=== PATIENT | female | born 1940 | race Two or more races ===

== ENCOUNTER 2024-05-23 08:23 | Emergency (ER) | payer MEDICARE, SELFPAY ==
--- NOTE | 2024-05-23 08:51 | XR_ITS ---
Examination: Venous duplex lower extremity sonogram, bilateral. Date and time of exam: May 23, 2024 1112 hours INDICATIONS: Leg pain and swelling this week Technique: Multiple sonographic images of the deep venous system have been obtained. B-mode/2-D grayscale imaging of vascular structures and Doppler spectral analysis (waveforms) and color performed Both legs are examined. Findings: Deep venous systems do not demonstrate abnormal echogenicity. All visualized deep veins exhibit compressibility. All visualized deep veins exhibit augmentation. Impression: Negative for deep vein thrombosis
--- NOTE | 2024-05-23 08:51 | XR_ITS ---
Examination: PA chest single view TECHNIQUE: Upright PA chest single view Exam date and time: May 23, 2024 0904 hours INDICATIONS: Shortness of breath today, blood in the stools 5 days FINDINGS: Mild prominence left ventricle Mild vascular congestion No lobar pneumonia or pulmonary edema There appears to be a right shoulder dislocation which may be chronic IMPRESSION: Mild vascular congestion
--- NOTE | 2024-05-23 08:52 | PD.EDRME ---
Rapid Medical Screening Exam RME Arrival date/time: 05/23/24 08:23 83-year-old female with history of kidney issues , hypertension, hypothyroid and currently on blood thinners presents with daughter who reports patient has bilateral lower extremity swelling and blood in her stool Chief Complaint: GI Bleed Time Seen by Provider: 05/23/24 08:38
[2024-05-23 09:35] LABS: Basophils # (Auto) 0.1 Thou/mm3 (0.0-0.2); Basophils % (Auto) 1 % (0-2.5); Eosinophils # (Auto) 1.4 Thou/mm3 (0.0-0.5); Eosinophils % (Auto) 20 % (0-10); Hematocrit 33.7 % (36.0-46.0); Hemoglobin 10.5 g/dL (12.0-16.0); Immature Granulocytes % (Auto) 0 % (0-0); Immature Granulocytes Auto 0.02 Thou/mm3 (0.00-0.00); Lymphocytes # (Auto) 1.7 Thou/mm3 (1.0-4.8); Lymphocytes % (Auto) 24 % (10-50); Mean Corpuscular HGB Conc 31.2 g/dl (31.0-37.0); Mean Corpuscular Volume 96 fL (80-100); Monocytes # (Auto) 0.4 Thou/mm3 (0.0-0.8); Monocytes % (Auto) 5 % (0-12); Neutrophils # (Auto) 3.5 Thou/mm3 (1.8-7.7); Neutrophils % (Auto) 50 % (37-80); Nucleated Red Blood Cell % 0 /100 WBC (0); Platelet Count 168 Thou/mm3 (140-440); White Blood Count 7.1 Thou/mm3 (3.6-11.0)
[2024-05-23 09:54] LABS: INR 1.1 (0.9-1.3)
[2024-05-23 09:57] LABS: Alanine Aminotransferase 18 U/L (10-49); Albumin, Serum 4.1 gm/dL (3.4-4.8); Albumin/Globulin Ratio 1.5 (1.2-2.2); Alkaline Phosphatase 102 U/L (46-116); Anion Gap 11 (7-16); Aspartate Amino Transferase 31 U/L (0-34); B-Type Natriuretic Peptide 1232 pg/mL (0-100); BUN/Creatinine Ratio 16 Ratio (12-20); Blood Urea Nitrogen 30 mg/dL (9-23); Calcium 9.5 mg/dL (8.3-10.6); Calcium (Corrected) 9.5 mg/dL (8.5-10.1); Carbon Dioxide 25.5 mMol/L (20.0-31.0); Chloride 107 mMol/L (98-107); Creatinine (Component) 1.9 mg/dL (0.6-1.3); Globulin 2.8 gm/dL (2.3-3.5); Glucose 84 mg/dL (74-106); Osmolality,Calculated 290 (275-295); Potassium 4.2 mMol/L (3.4-5.1); Sodium 143 mMol/L (136-145); Total Protein 6.9 gm/dL (5.7-8.2); Troponin I 0.037 ng/mL (0.0-0.045); eGFR 26 See Note
[2024-05-23 09:57] LABS: Collection Type, Urine Clean Catch
[2024-05-23 10:06] LABS: Bacteria,Urine Rare; Bilirubin,Urine Negative (Negative); Blood,Urine 1+ (Negative); Clarity,Urine Turbid (Clear/Hazy); Color,Urine Yellow (Lt Yel-Yel); Glucose, Urine Negative (Negative); Ketones,Urine Negative (Negative); Leukocyte Esterase,Urine Positive (Negative); Nitrite,Urine Positive (Negative); Protein,Urine 1+ (Neg - Trace); RBC,Urine 37 /hpf (0-3); Specific Gravity,Urine 1.015 (1.001-1.035); Squamous Epithelial Cell,Urine 3 /hpf (0-5); Urobilinogen,Urine Negative mg/dL (0.0-1.0); WBC,Urine 975 /hpf (0-5)
[2024-05-23 12:39] VITALS: BP 155/84; PULSE 79; RESP 18; TEMP 36.6; O2SAT 99
--- NOTE | 2024-05-23 12:55 | PD.EDADULT ---
ED General RME/HPI General Chief complaint: GI Bleed Stated complaint: BLE SWOLLEN, KIDNEY ISSUES,BL IN STOOL,SENT BY PCP Time Seen by Provider: 05/23/24 08:38 Arrival date/time: 05/23/24 08:23 CC: Blood on stool, swollen lower extremities HPI both going on for the past 2 days. The patient is on apixaban for clots. Daughter states the patient had bright red blood on stool x 2. Lower extremity edema and for the last 3 to 4 days patient denies chest pain or shortness of breath no other complaints at this time. RME / HPI RME / HPI narrative: 05/23/24 08:23 83-year-old female with history of kidney issues , hypertension, hypothyroid and currently on blood thinners presents with daughter who reports patient has bilateral lower extremity swelling and blood in her stool Related Data Home Medications ?Medication ?Instructions ?Recorded ?Confirmed allopurinol 300 mg tablet 300 mg PO QDAY 12/26/22 12/26/22 atenolol 50 mg tablet 50 mg PO BID 12/26/22 12/26/22 clonidine HCl 0.3 mg tablet 0.3 mg PO BID 12/26/22 12/26/22 levothyroxine 100 mcg tablet 100 mcg PO QDAY 12/26/22 12/26/22 simvastatin 40 mg tablet 40 mg PO QPM 12/26/22 12/26/22 Previous Rx's ?Medication ?Instructions ?Recorded apixaban 2.5 mg tablet 2.5 mg PO BID 1 month #60 tabs 12/30/22 metoprolol tartrate 50 mg tablet 50 mg PO Q12H 1 month #60 tabs 12/30/22 cephalexin 500 mg capsule 500 mg PO TID #21 caps 05/21/23 ciprofloxacin HCl 500 mg tablet 500 mg PO BID #14 tabs 05/23/24 (Cipro) furosemide 20 mg tablet (Lasix) 20 mg PO QAM #2 tabs 05/23/24 Allergies Allergy/AdvReac Type Severity Reaction Status Date / Time No Known Allergies Allergy Verified 05/23/24 08:27 Review of Systems Review of Systems Narrative Review of Systems: GEN: No fever, no chills, no weight loss EYES: No discharge, no visual changes, no pain HEENT: No ear pain, no congestion, no sore throat PULM: No shortness of breath, no cough, no congestion CV: No chest pain, no dyspnea on exertion, no palpitations GI: No nausea, no vomiting, no diarrhea, no pain, no constipation : No frequency, no urgency, no dysuria MUSC/SKEL: No joint pain, no back pain,+ lower extremity edema SKIN: No rash PSYCH: No hallucinations, no depression HEME/LYMPH: No easy bleeding or bruising tendencies NEURO: No weakness, no headache Past Medical History Past Medical History NEUROLOGIC: Positive Neurological Disorders CARDIAC: Positive Hypertension; Negative Congestive Heart Failure RESPIRATORY: Negative Chronic Obstructive Pulmonary Disease (COPD) GENITOURINARY: Positive Renal Disease ENDOCRINE: Positive Hypothyroidism; Negative Diabetes Mellitus Type 1 or Diabetes Mellitus Type 2 OTHER HISTORY: Positive Falls; Negative MRSA Social History SMOKING STATUS: Never smoker ED Exam Narrative Physical exam: [General: Stooped in stature not in any acute distress Head normocephalic HEENT: Eyes pupils are PERRLA EOMs are intact pink dry membranes uvula is midline. All other subsystems of HEENT are within acceptable limits Neck is supple nontender Chest equal chest rise nontender to palpation Respiratory: Clear to auscultation no wheezes crackles or rubs CV: Rate rhythm is regular no murmurs rubs or clicks Abdomen is soft nontender no masses positive bowel sounds all 4 quadrants GI: Rectum: Large hemorrhoid at the 4 o'clock position no open lesions induration or fissures, good rectal tone, guaiac is negative. Back: No CVA tenderness no spinous process tenderness from cervical spine thoracic and lumbar spine Skin: Intact no petechiae rash induration ulceration or crepitus Extremities: Moving all extremity against resistance cap refill less than 2 seconds neurosensory intact. 1+ pitting edema to both lower extremities. Neuro: Awake alert oriented x2, person and place, Glascow coma 15 no focal deficits] Course Quality Measures none Orders Category Date Time Status US venous doppler LE BI Stat Exams 05/23/24 08:51 Completed XR chest 1V portable Stat Exams 05/23/24 08:51 Completed B-Type Natriuretic Peptide Stat Lab 05/23/24 08:54 Completed CBC Stat Lab 05/23/24 08:54 Completed Comprehensive Metabolic Panel Stat Lab 05/23/24 08:54 Completed Magnesium Stat Lab 05/23/24 08:54 Completed Partial Thromboplastin Time Stat Lab 05/23/24 08:54 Completed Prothrombin Time with INR Stat Lab 05/23/24 08:54 Completed Troponin I Stat Lab 05/23/24 08:54 Completed Urinalysis Stat Lab 05/23/24 09:40 Completed cefTRIAXone [Rocephin] 1,000 mg Med 05/23/24 12:59 Discontinued Lidocaine 1% 20 ml [Xylocaine 1% 20 ML] 2.1 ml IM X1 Vital Signs Vital signs: Vital Signs Temperature 97.9 F 05/23/24 12:39 Pulse Rate 79 05/23/24 12:39 Respiratory Rate 18 05/23/24 12:39 Blood Pressure 155/84 H 05/23/24 12:39 Pulse Oximetry (%) 99 05/23/24 12:39 [facility] Patient data External records reviewed:: [facility] previous records Clinical information provided by:: patient and family Social determinants that could affect healthcare access:: none Patient has the following chronic illnesses:: DVT hypothyroidism hypertension hyperlipidemia How is presenting disease/condition affected by chronic disease/condition?: uneffected by Evaluation data The following diagnostics were reviewed and interpreted by me:: lab results and radiology exam(s) Lab and/or radiology exams considered but not ordered:: CBC shows no leukocytosis and H&H of 10.5 and 33.7 respectively which is an improvement from March of this year. Platelet count is normal Coags within acceptable limits No significant electrolyte imbalances BUN at 30 and creatinine 1.9 which is unchanged from previous visits Magnesium 2.0, no transaminitis or T. bili elevation Troponin is negative BNP is elevated at 1232. Urine is positive for urinary tract infection with nitrite positive leukocyte Estrace positive with 975 WBCs and rare urine bacteria. Extremities are negative for DVT Chest x-ray is positive for mild vascular congestion as interpreted by me read by radiology. Interpretation Summary: Guaiac is negative I suspect that this is a hemorrhoid of some sort either internal or the into external hemorrhoid noted has now stopped bleeding. Patient's H&H is actually improved even though she is anemic. Lower extremity edema is up somewhat concerned we will give her 2 days of Lasix to be taken each morning and then she is to follow-up promptly with her PCP for cardiac workup. Outpatient GI would also be recommended if the bleeding returns. Please note the patient is on blood thinners for DVT. Medications Medications considered but not ordered:: None Medication administrations:: Medication Administration History Discontinued Medications Ceftriaxone Sodium 1,000 mg/ (Lidocaine HCl 2.1 ml) 0 mg IM X1 ONE Stop: 05/23/24 13:00 Last Admin: 05/23/24 13:32 Dose: 1,000 mg Documented By: LEO None Consultations Consultation(s) initiated? (list below): No Diagnosis Differential Diagnosis ED Complaint MDM: Lower extremity edema, UTI, rectal bleeding Most likely diagnosis given after review of the tests above:: Lower extremity edema, UTI Admission Indicated Admission indicated?: not indicated Explain why admission is indicated or not indicated:: Stable for outpatient follow-up Admission Request Was there a request for admission?: No Disposition Plan Disposition Plan: Discharge Discharge Attestation Discharge Attestation: The patient and all family members were given an opportunity to ask questions and understood the discharge instructions. Discharge instructions specifically effects, indications for sooner follow up or return to the emergency department, and the expected course of current diagnosis. Patient condition: Stable Medical Decision Making Differential Diagnosis Differential Diagnosis: Lower extremity edema, UTI, rectal bleeding Lab Data 05/23/24 08:54 05/23/24 08:54 Labs: Lab Results 05/23/24 05/23/24 Range/Units 08:54 09:40 WBC 7.1 (3.6-11.0) Thou/mm3 RBC 3.50 L (4.00-5.20) Miln/mm3 Hgb 10.5 L (12.0-16.0) g/dL Hct 33.7 L (36.0-46.0) % MCV 96 (80-100) fL MCH 30.0 (25.0-35.0) pg MCHC 31.2 (31.0-37.0) g/dl RDW Std Deviation 59.0 H (36.4-46.3) fL Plt Count 168 (140-440) Thou/mm3 Neut % (Auto) 50 (37-80) % Lymph % (Auto) 24 (10-50) % Sunflower % (Auto) 5 (0-12) % Eos % (Auto) 20 H (0-10) % Baso % (Auto) 1 (0-2.5) % Neut # (Auto) 3.5 (1.8-7.7) Thou/mm3 Lymph # (Auto) 1.7 (1.0-4.8) Thou/mm3 Sunflower # (Auto) 0.4 (0.0-0.8) Thou/mm3 Eos # (Auto) 1.4 H (0.0-0.5) Thou/mm3 Baso # (Auto) 0.1 (0.0-0.2) Thou/mm3 Immature Gran # (Auto) 0.02 H (0.00-0.00) Thou/mm3 Absolute Nucleated RBC 0.00 (0.00-0.00) Thou/mm3 Immature Gran % 0 (0-0) % Nucleated RBC % 0 (0) /100 WBC PT 12.0 (9.0-12.2) Seconds INR 1.1 (0.9-1.3) APTT 31.0 (22.0-36.0) Seconds Sodium 143 (136-145) mMol/L Potassium 4.2 (3.4-5.1) mMol/L Chloride 107 (98-107) mMol/L Carbon Dioxide 25.5 (20.0-31.0) mMol/L Anion Gap 11 (7-16) BUN 30 H (9-23) mg/dL Creatinine 1.9 H (0.6-1.3) mg/dL Estim Creat Clear Calc Not Performed. eGFR 26 L (60 - ) See Note BUN/Creatinine Ratio 16 (12-20) Ratio Glucose 84 (74-106) mg/dL Calculated Osmolality 290 (275-295) Calcium 9.5 (8.3-10.6) mg/dL Corrected Calcium 9.5 (8.5-10.1) mg/dL Magnesium 2.0 (1.6-2.6) mg/dL Total Bilirubin 1.0 (0.3-1.2) mg/dL AST 31 (0-34) U/L ALT 18 (10-49) U/L Alkaline Phosphatase 102 (46-116) U/L Troponin I 0.037 (0.0-0.045) ng/mL B-Natriuretic Peptide 1232 H* (0-100) pg/mL Total Protein 6.9 (5.7-8.2) gm/dL Albumin 4.1 (3.4-4.8) gm/dL Globulin 2.8 (2.3-3.5) gm/dL Albumin/Globulin Ratio 1.5 (1.2-2.2) Ur Collection Type Clean Catch Urine Color Yellow (Lt Yel-Yel) Urine Clarity Turbid A (Clear/Hazy) Urine pH 6.0 (5.0-7.0) Ur Specific [place] 1.015 (1.001-1.035) Urine Protein 1+ A (Neg - Trace) Urine Glucose (UA) Negative (Negative) Urine Ketones Negative (Negative) Urine Blood 1+ A (Negative) Urine Nitrite Positive (Negative) Urine Bilirubin Negative (Negative) Urine Urobilinogen (Auto) Negative (0.0-1.0) mg/dL Ur Leukocyte Esterase Positive (Negative) Urine RBC 37 H (0-3) /hpf Urine WBC 975 H (0-5) /hpf Ur Squamous Epith Cells 3 (0-5) /hpf Urine Bacteria Rare (None) Discharge Plan Plan Patient Disposition: HOME (Self Care) Patient condition on transfer: Stable Prescriptions/Referrals Prescriptions/Med Rec: New furosemide [Lasix] 20 mg tablet 20 mg PO QAM Qty: 2 0RF ciprofloxacin HCl [Cipro] 500 mg tablet 500 mg PO BID Qty: 14 0RF No Action cephalexin 500 mg capsule 500 mg PO TID Qty: 21 0RF clonidine HCl 0.3 mg Tablet 0.3 mg PO BID simvastatin 40 mg Tablet 40 mg PO QPM levothyroxine 100 mcg Tablet 100 mcg PO QDAY allopurinol 300 mg Tablet 300 mg PO QDAY atenolol 50 mg Tablet 50 mg PO BID apixaban 2.5 mg tablet 2.5 mg PO BID 30 Days Qty: 60 3RF metoprolol tartrate 50 mg tablet 50 mg PO Q12H 30 Days Qty: 60 2RF Referrals: Marietta Gutirerez [Primary Care Provider] - In 1 week Problem List Clinical Impression: Rectal bleed, Acute UTI, Bilateral edema of lower extremity, CHF (congestive heart failure) Patient/Caregiver Discharge Instructions Other Activity Instructions:: Keep your legs elevated at nighttime, take the water pill each morning for the next 2 days. Follow-up promptly with your primary care doctor for a cardiac/CHF or congestive heart failure workup. Take the antibiotics for the urinary tract infection. If there is worsening of any of the symptoms including bleeding from the rectum return to the emergency room immediately for further evaluation. Education Materials: Bleeding Gastrointestinal, Coping with Heart Failure, ED Leg Swelling in Both Legs Print Language: Sudanese Stand Alone Forms: [employer] Info., Work/School Release, Patient Portal Info Letter PA/CUFF STITCHER Supervising Physician PA/CUFF STITCHER Supervising Physician: Dedrick Balderas ENP
[2024-05-23] MEDS: cefTRIAXone 1,000 MG, LIDOCAINE 1% 20 ML 2.1 ML IM (13:32)
== END 2024-05-23 13:44 | disposition home or self-care (01) ==
PROVIDERS: Nurse Practitioner Primary Care; Emergency Provider Emergency Medicine; PCP Internal Medicine
DX: R60.0 Localized edema (principal); K92.1 Melena; N39.0 Urinary tract infection, site not specified; I50.9 Heart failure, unspecified; I11.0 Hypertensive heart disease with heart failure; E03.9 Hypothyroidism, unspecified
CPT/HCPCS: 36415; 71045; 80053; 81001; 83735; 83880; 84484; 85025; 85610; 85730; 93970; 96372; 99284; J0696; J3490

== ENCOUNTER 2024-07-12 19:58 | Inpatient (IN) | payer OTHER, MEDICARE, SELFPAY ==
[2024-07-12 19:59] VITALS: BMI 25.7
--- NOTE | 2024-07-12 20:05 | EKG_ITS ---
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: : 1940 Requested By: ED Temporary Provider Order Number: [id number] Reading MD: ED Temporary Provider Measurements Intervals Harper Rate: 150 P: MT: QRS: 114 QRSD: 134 T: -69 QT: 315 QTc: 499 Interpretive Statements ATRIAL FLUTTER/TACHYCARDIA WITH RAPID VENTRICULAR RESPONSE INTRAVENTRICULAR CONDUCTION DELAY [130+ ms QRS DURATION] RIGHT VENTRICULAR HYPERTROPHY [SOME/ALL OF: PROMINENT R IN V1, LATE TRANSITION, RAD, YANG, SSS] CRITICAL TEST RESULT Compared to ECG 05/21/2023 16:51:54 Intraventricular conduction delay now present Atrial abnormality now present Right ventricular hypertrophy now present Sinus bradycardia no longer present Right bundle-branch block no longer present /store/[id number]
[2024-07-12 20:16] VITALS: BP 131/75; PULSE 147; RESP 18; TEMP 36.4; O2SAT 97
--- NOTE | 2024-07-12 20:26 | EDNOTE_ITS ---
ED General RME/HPI General Chief complaint: Arrhythmia/Palpitations Stated complaint: SENT BY DR. MELLO FOR AFIB RVR AT OFFICE Arrival date/time: 07/12/24 19:58 RME / HPI RME / HPI narrative: This patient is a 83-year-old female with past medical history of CKD stage IV , hypertension, hypothyroidism, hyperlipidemia, new onset A-fib/flutter presented to the ED with racing of heart from residential real estate assistant, Dr Mello's office. Patient came with her daughter at the bedside. They reported that they went to their PCP today. They found that patient has rapid heart rate and was referred to residential real estate assistant. Customer Account Coordinator, evaluate the patient and recommended her to be admitted in the hospital for possible cardioversion and CHEVY. Patient is having some mild palpitations however denied any chest pain or breathing difficulty. Patient's daughter reported that patient had some stuffy nose associated with bodyaches with mild nausea a week ago. She was here in May 2024 with bilateral lower extremity swelling. Patient denies any abdominal discomfort, nausea vomiting, dysuria or burning sensation. Vitals showed blood pressure 131/75, pulse 147, respiratory rate 18 and afebrile. Patient was saturating well on room air. EKG showed atrial flutter with RVR heart rate 150s. QTc 401. Labs revealed hemoglobin 12.8, WBC 9.8. Platelet count 220. Coagulation panel showed INR 1.0. Chemistry panel urinalysis showed sodium 140, potassium 4.1. Chloride 100. BUN 50 and creatinine 3.0. GFR 15. Blood glucose 171. Magnesium 2.1. AST 50, ALP 146. Troponin I 0.077. BNP is pending. TSH 3.64 and T4 1.34. Glucosuria WBC 37 and yeast. We ordered diltiazem 15 mg x 1 along with magnesium 2 g x 1. We will be initiating diltiazem drip. Customer Account Coordinator has been consulted. Patient will need to be admitted to the hospital for management of atrial flutter with RVR. Rapid ventricular rate got controlled with diltiazem push. Customer Account Coordinator contacted and recommended that start the patient on diltiazem drip 5 mg/h, continue Eliquis 2.5 mg bid age and renal dosed, keep the patient n.p.o. and recommended to give metoprolol XL 100 and stop for metoprolol tartrate he will likely perform cardioversion tomorrow morning. Admitting team were notified and patient will be admitted. Additionally, patient was found to have MICHAEL on CKD stage IIIb POSSIBLE due to Cardiorenal syndrome vs diuretics , elevated troponin I likely supply/demand ischemia. PMH: CKD stage IIIb, arthritis, DM type II, new onset atrial flutter with RVR PSH: Nonsignificant SH: Denies smoking or drinking alcohol. No history of illicit drug use. Allergies: NKDA Home medications: Allopurinol, simvastatin 40 mg at bedtime, losartan losartan 50 mg once daily, metoprolol tartrate 50 twice daily, levothyroxine, Lasix 40 once daily, Eliquis 2.5 twice daily MD complaint: Atrial flutter with RVR Onset (ago): day(s) (1) Location: chest Associated symptoms: other (Racing of heart) Related Data Home Medications ?Medication ?Instructions ?Recorded ?Confirmed allopurinol 300 mg tablet 300 mg PO QDAY 12/26/2212/07 atenolol 50 mg tablet 50 mg PO BID 12/26/22 clonidine HCl 0.3 mg tablet 0.3 mg PO BID 12/26/22 levothyroxine 100 mcg tablet 100 mcg PO QDAY 12/26/22 12/26/22 simvastatin 40 mg tablet 40 mg PO QPM 12/26/22 Previous Rx's ?Medication ?Instructions ?Recorded apixaban 2.5 mg tablet 2.5 mg PO BID 1 month #60 ta bs 12/30/22 metoprolol tartrate 50 mg tablet 50 mg PO Q12H 1 month #60 tabs 12/30/22 cephalexin 500 mg capsule 500 mg PO TID #21 caps 05/20 ciprofloxacin HCl 500 mg tablet 500 mg PO BID #14 tabs 05/23/24 (Cipro) furosemide 20 mg tablet (Lasix) 20 mg PO QAM #2 tabs 0 05/23/24 Allergies Allergy/AdvReac Type Severity Reaction Status Date / Time No Known Allergies Allergy Verified 07/12/24 19:59 Review of Systems Review of Systems Systems Reviewed: All systems reviewed, normal except as documented Past Medical History Past Medical History NEUROLOGIC: Positive Neurological Disorders CARDIAC: Positive Hypertension; Negative Congestive Heart Failure RESPIRATORY: Negative Chronic Obstructive Pulmonary Disease (COPD) GENITOURINARY: Positive Renal Disease ENDOCRINE: Positive Hypothyroidism; Negative Diabetes Mellitus Type 1 or Diabetes Mellitus Type 2 OTHER HISTORY: Positive Falls; Negative MRSA Social History SMOKING STATUS: Never smoker ED Exam Narrative Physical exam: GENERAL APPEARANCE: AxOx4, elderly female in no acute distress. Saturating well on room air. HEENT: NC, AT. MMM. EOMI, clear conjunctiva, oropharynx clear. NECK: Supple without lymphadenopathy. No stiffness or restricted ROM. HEART: Irregular rate and irregular rhythm, normal S1/S2, no m/r/g LUNGS: CTAB, moving air well. No crackles or wheezes are heard. ABDOMEN: Soft, nontender, nondistended with good bowel sounds heard. BACK: No CVAT, no obvious deformity. EXTREMITIES: Bilateral 1+ pitting edema noticed with chronic venous stasis. NEUROLOGICAL: Grossly nonfocal. Alert and oriented, moving all 4 extremities. CN not formally tested but appear grossly intact. Skin: Chronic venous stasis Psych: Appropriate mood and affect Course Course Course Narrative: This patient is a 83-year-old female with past medical history of CKD stage IV, hypertension, hypothyroidism, hyperlipidemia, new onset A-fib/flutter presented to the ED with racing of heart from residential real estate assistant, Dr Mello's office. EKG showed atrial flutter with RVR.We ordered diltiazem 15 mg x 1 along with magnesium 2 g x 1. We will be initiating diltiazem drip. Customer Account Coordinator has been consulted. Patient will need to be admitted to the hospital for management of atrial flutter with RVR. Rapid ventricular rate got controlled with diltiazem push. Customer Account Coordinator contacted and recommended that start the patient on diltiazem drip 5 mg/h. continue Eliquis 2.5 mg bid age and renal dosed, keep the patient n.p.o. and recommended to give metoprolol XL 100 and stop for metoprolol tartrate he will likely perform cardioversion tomorrow morning. Additionally, patient was found to have MICHAEL on CKD stage IV POSSIBLE due to Cardiorenal syndrome vs diuretics, elevated troponin I likely supply/demand ischemia. Admitting team were notified and patient will be admitted. Quality Measures VTE prophylaxis (eliquis 2.5 ) Orders Category Date Time Status COVID-19 Screening Questionnaire NOW Care 05/07/25 21:17 Active Decision to Admit X1 Care 07/12/24 21:17 Completed EKG (ED ONLY) *Do not use* NOW Care 07/12/24 20:05 Completed Insert IV NOW Care 07/12/24 20:36 Active NPO NOW Care 07/12/24 21:19 Active Consult to Cardiology Stat Cons 07/12/24 20:35 Ordered Diet NPO (NOW) Diet 07/12/24 21:19 Active CXRP [XR chest 1V portable] Stat Exams 07/12/24 21:05 Completed EKG (ED Only) Stat Exams 07/12/24 20:05 Ordered BNP [B-Type Natriuretic Peptide] Stat Lab 07/12/24 20:49 Received CBC Stat Lab 07/12/24 20:49 Completed CMP [Comprehensive Metabolic Panel] Stat Lab 07/12/24 20:49 Completed Free T4 (Free Thyroxine) Stat Lab 07/12/24 20:49 Completed INR [Prothrombin Time with INR] Stat Lab 07/12/24 20:49 Completed Mag [Magnesium] Stat Lab 07/12/24 20:49 Completed PTT [Partial Thromboplastin Time] Stat Lab 07/12/24 20:49 Completed Phosphorous Stat Lab 07/12/24 20:49 Completed TSH [Thyroid Stimulating Hormone] Stat Lab 07/12/24 20:49 Completed Troponin I Stat Lab 07/12/24 20:49 Completed Urinalysis Stat Lab 07/12/24 20:41 Completed Apixaban [Eliquis] Med 07/12/24 21:15 Active 2.5 mg PO BID DILTIAZEM in D5W 125 MG Med 07/12/24 21:13 Discontinued 125 mg in 125 ml IV 5 mg/hr Diltiazem Inj [Cardizem Inj] Med 07/12/24 20:41 Discontinued 15 mg IV X1 ONE Magnesium Sulfate 2 GM Ivpb [Magnesium Sulfate Ivpb] Med 07/12/24 20:46 Discontinued 2 gm in 50 ml IV X1 Vital Signs Vital signs: Vital Signs Temperature 97.5 F 07/12/24 20:16 Pulse Rate 147 H 07/12/24 20:16 Respiratory Rate 18 07/12/24 20:16 Blood Pressure 131/75 H 07/12/24 20:16 Pulse Oximetry (%) 97 07/12/24 20:16 Oxygen Delivery Method Room Air 07/12/24 20:16 Discharge Plan Plan Patient Disposition: Admit Acute Care w/in Hospital Problem List Clinical Impression: Atrial flutter with rapid ventricular response MDM Narrative Sign Out note: This patient is a 83-year-old female with past medical history of CKD stage IV, hypertension, hypothyroidism, hyperlipidemia, new onset A-fib/flutter presented to the ED with racing of heart from residential real estate assistant, Dr Mello's office. EKG showed atrial flutter with RVR.We ordered diltiazem 15 mg x 1 along with magnesium 2 g x 1. We will be initiating diltiazem drip. Customer Account Coordinator has been consulted. Patient will need to be admitted to the hospital for management of atrial flutter with RVR. Rapid ventricular rate got controlled with diltiazem push.Customer Account Coordinator contacted and recommended that start the patient on diltiazem drip 5 mg/h, continue Eliquis 2.5 mg bid age and renal dosed, keep the patient n.p.o. and recommended to give metoprolol XL 100 and stop for metoprolol tartrate he will likely perform cardioversion tomorrow morning. Additionally, patient was found to have MICHAEL on CKD stage IV POSSIBLE due to Cardiorenal syndrome vs diuretics, elevated troponin I likely supply/demand ischemia. Admitting team were notified and patient will be admitted. Medication Administration(s) Medication Administration History Apixaban (Apixaban 2.5 Mg Tablet) 2.5 mg PO BID [facility] Stop: 08/11/24 21:14 Last Admin: 07/12/24 21:46 Dose: 2.5 mg Documented By: EF Furosemide (Furosemide 20 Mg Tablet) 20 mg PO QAM [facility] Stop: 08/12/24 08:59 Levothyroxine Sodium (Levothyroxine Sodium 100 Mcg Tablet) 100 mcg PO ACBR [facility] Stop: 08/12/24 05:59 Discontinued Medications Diltiazem HCl (Diltiazem Inj 5 Mg/Ml Vial 5 Ml) 15 mg IV X1 ONE Stop: 07/12/24 20:42 Last Admin: 07/12/24 20:53 Dose: 15 mg Documented By: EE Magnesium Sulfate (Magnesium Sulfate Ivpb) 2 gm in 50 mls @ 25 mls/hr IV X1 ONE Stop: 07/12/24 22:45 Last Admin: 07/12/24 20:54 Dose: 25 mls/hr Documented By: EE Diltiazem HCl (Diltiazem In D5w 125 Mg) 125 mg in 125 mls @ 5 mls/hr IV .Q24H [facility] Stop: 08/11/24 21:12 Last Admin: 07/12/24 22:25 Dose: Not Given Documented By: EF Non-Admin Reason: Cancelled by Provider Lactated Ringer's (Lactated Ringers) 500 mls @ 999 mls/hr IV .Q31M ONE Stop: 07/12/24 22:11 Last Infusion: 07/12/24 21:48 Dose: 0 mls/hr Documented By: Admin: 07/12/24 21:46 Dose: 999 mls/hr Documented By: EF Metoprolol Succinate (Metoprolol Succinate Xl 25 Mg Tabcr) 50 mg PO X1 ONE Stop: 07/12/24 21:52
[2024-07-12 20:53] VITALS: BP 120/88; PULSE 141
[2024-07-12] MEDS: DILTIAZEM INJ 5 MG/ML VIAL 5 ML 15 MG IV (20:53)
[2024-07-12] MEDS: Magnesium Sulfate 2 GM Ivpb 2 GM/50 ML BAG IV (20:54)
[2024-07-12 20:55] LABS: Collection Type, Urine Clean Catch
[2024-07-12 20:56] LABS: Basophils # (Auto) 0.1 Thou/mm3 (0.0-0.2); Basophils % (Auto) 1 % (0-2.5); Eosinophils # (Auto) 1.3 Thou/mm3 (0.0-0.5); Eosinophils % (Auto) 13 % (0-10); Hematocrit 39.9 % (36.0-46.0); Hemoglobin 12.8 g/dL (12.0-16.0); Immature Granulocytes % (Auto) 0 % (0-0); Immature Granulocytes Auto 0.03 Thou/mm3 (0.00-0.00); Lymphocytes # (Auto) 2.8 Thou/mm3 (1.0-4.8); Lymphocytes % (Auto) 29 % (10-50); Mean Corpuscular HGB Conc 32.1 g/dl (31.0-37.0); Mean Corpuscular Hemoglobin 29.6 pg (25.0-35.0); Mean Corpuscular Volume 92 fL (80-100); Monocytes # (Auto) 0.7 Thou/mm3 (0.0-0.8); Monocytes % (Auto) 7 % (0-12); Neutrophils % (Auto) 51 % (37-80); Nucleated Red Blood Cell % 0 /100 WBC (0); Platelet Count 220 Thou/mm3 (140-440); RDW Standard Deviation 54.1 fL (36.4-46.3); Red Blood Count 4.33 Miln/mm3 (4.00-5.20); White Blood Count 9.8 Thou/mm3 (3.6-11.0)
--- NOTE | 2024-07-12 21:05 | XR_ITS ---
Examination: AP chest single view TECHNIQUE: AP portable semiupright chest single view Time: July 12, [id number] hours Comparison May 23, 2024 INDICATIONS: Tachycardia congestion beginning one week ago. FINDINGS: Mild enlargement cardiac contour Moderate vascular congestion. No pneumonia or boone pulmonary edema Erosive changes involving the left humeral head Impression: Moderate vascular congestion
[2024-07-12 21:06] LABS: Bilirubin,Urine Negative (Negative); Blood,Urine Negative (Negative); Budding Yeast,Urine Present; Clarity,Urine Clear (Clear/Hazy); Color,Urine Yellow (Lt Yel-Yel); Glucose, Urine 3+ (Negative); Hyaline Casts,Urine < 1 /hpf (0-1); Ketones,Urine Negative (Negative); Leukocyte Esterase,Urine Positive (Negative); Nitrite,Urine Negative (Negative); PH,Urine 5.5 (5.0-7.0); Protein,Urine Trace (Neg - Trace); RBC,Urine 3 /hpf (0-3); Specific Gravity,Urine 1.019 (1.001-1.035); Squamous Epithelial Cell,Urine 2 /hpf (0-5); Urobilinogen,Urine Negative mg/dL (0.0-1.0); WBC,Urine 37 /hpf (0-5)
[2024-07-12 21:12] LABS: Partial Thromboplastin Time 29.2 Seconds (22.0-36.0); Prothrombin Time 11.2 Seconds (9.0-12.2)
[2024-07-12 21:27] LABS: Alanine Aminotransferase 40 U/L (10-49); Albumin, Serum 4.5 gm/dL (3.4-4.8); Albumin/Globulin Ratio 1.4 (1.2-2.2); Alkaline Phosphatase 146 U/L (46-116); Anion Gap 11 (7-16); Aspartate Amino Transferase 50 U/L (0-34); BUN/Creatinine Ratio 17 Ratio (12-20); Bilirubin,Total 0.7 mg/dL (0.3-1.2); Blood Urea Nitrogen 50 mg/dL (9-23); Calcium 9.2 mg/dL (8.3-10.6); Calcium (Corrected) 9.2 mg/dL (8.5-10.1); Carbon Dioxide 29.4 mMol/L (20.0-31.0); Chloride 100 mMol/L (98-107); Estimated Creatinine Clearance 11.3 mL/min (>60); Free T4 (Free Thyroxine) 1.34 ng/dL (0.89-1.76); Globulin 3.2 gm/dL (2.3-3.5); Glucose 171 mg/dL (74-106); Osmolality,Calculated 296 (275-295); Phosphorous 4.3 mg/dL (2.4-5.1); Potassium 4.1 mMol/L (3.4-5.1); Sodium 140 mMol/L (136-145); Thyroid Stimulating Hormone 3.64 uIU/mL (0.55-4.78); Total Protein 7.7 gm/dL (5.7-8.2); eGFR 15 See Note
[2024-07-12 21:32] LABS: Troponin I 0.077 ng/mL (0.0-0.045)
[2024-07-12 21:40] VITALS: PULSE 110
--- NOTE | 2024-07-12 21:40 | XR_ITS ---
Examination: Retroperitoneal ultrasound, complete Technique: Multiple high resolution grayscale images of the retroperitoneum obtained, including kidneys and bladder. Exam date and time:July 12, 2024, 2146 hours INDICATIONS: Chronic kidney disease diagnosis 13 years ago, acute renal insufficiency on laboratory examination today FINDINGS: Right kidney 7.9 cm the renal cortex 1.3 cm Multiple benign cysts, the largest 21 mm in the lower pole Left kidney 8.0 cm the cortex by 9 cm Multiple cysts, the largest 19 mm in the midpole Left renal perinephric stranding Moderate bilateral renal parenchymal scar formation Contracted urinary bladder. IMPRESSION: Small kidneys with bilateral renal cortical thinning Moderate bilateral renal parenchymal scar formation
--- NOTE | 2024-07-12 21:43 | PD.EVENT ---
Documentation for date of: 07/12/24 Event Note Event Note: An 83-year-old female presented to the ER with the chief complaint of rapid heart rate. The patient described no symptoms today and denies feeling her heart racing, chest pain, or shortness of breath. The rapid heart rate was first noted earlier today during a new patient visit with a burial needs salesperson, prompted by abnormal labs from a prior ER visit. An EKG performed there showed atrial fibrillation with rapid ventricular response. Her daughter reported a recent episode of stuffy nose, body aches, and mild nausea about one week ago. Patient denied fever, cough, abdominal discomfort, nausea, vomiting, dysuria, or burning sensation. She was evaluated in May 2024 for bilateral leg swelling. The burial needs salesperson recommended hospital admission for possible cardioversion and CHEVY. She came to the ER for further evaluation and treatment as advised by the burial needs salesperson. The patient has a history of CKD stage IIIb, arthritis, hypertension, hypothyroidism, hyperlipidemia. Surgical history is nonsignificant. Social history includes no smoking, alcohol, or illicit drug use. She is wheelchair-bound but ambulates short distances and performs ADLs independently. She lives with family and is full code. In the ER, vital signs recorded as temp 97.5?F, HR 147 bpm, RR 18, BP 131/75 mmHg. EKG showed Afib with RVR. CXR demonstrated moderate vascular congestion. Lab revealed WBC 9.8, Plt 220, Hb 12.8, Na 140, K 4.1, Cl 100, BUN 50, Creatinine 3.0, eGFR 15, Mg 2.0, Phos 4.3, Troponin 0.077, AST 50, ALT 40, Bilirubin 0.7. Admit for further evaluation and treatment.
[2024-07-12] MEDS: APIXABAN 2.5 MG TABLET PO (21:46)
[2024-07-12] MEDS: RINGERS LACTATED 500 ML 500 ML 999 ML IV (21:46)
--- NOTE | 2024-07-12 21:56 | ESHP_ITS ---
Documentation for date of: 07/12/24 HPI History of Present Illness History of present illness: Patient is an 83-year-old female with a past medical history of atrial fibrillation diagnosed in 2022, on Eliquis and metoprolol at home, CKD stage III, hypertension, hypothyroidism and hyperlipidemia who was directed to the to emergency room from her adapted physical education teacher office for elective cardioversion. Patient is present with her daughter at bedside, stated that she has been taking care of her mother for the past 1 year and a half and has No knowledge about prior medical condition of atrial fibrillation. But on chart review discharge summary from 2022 patient was diagnosed with A-fib RVR and started metoprolol and Eliquis. Patient is fairly asymptomatic, does not complain of any chest discomfort or shortness of breath, fever or dizziness. Currently patient is seen with A-fib RVR, heart rate in the 120s to the 110s. Patient was given 15 mg IV push of diltiazem but that dropped the patient's blood pressure. Currently given metoprolol 50 mg x 1, monitor for hypotension. Was started on Dilt drip 5 mg but was discontinued due to concern for heart failure. In the ER patient had initial vitals blood pressure 131/75, heart rate 147, afebrile, saturating well on room air. EKG showed a flutter with RVR heart rate in the 150s, QTc 4 1. Initial labs pertinent for elevated BUN/creatinine, BUN 50 creatinine 3, patient baseline creatinine seems to be around 1.9. Pending BNP, troponin 0.077. Urinalysis concerning for UTI and glucosuria. Past medical history: Atrial fibrillation diagnosed in 2022, started on low-dose Eliquis and metoprolol. CKD stage III/IV, hypertension, hypothyroidism and hyperlipidemia. Moderate pulmonary hypertension based on echocardiogram in 2022. Social: Denies smoking or drinking. Review of Systems Review of Systems Systems Reviewed: All systems reviewed, normal except as documented Past Medical History Past Medical History NEUROLOGIC: Positive Neurological Disorders CARDIAC: Positive Hypertension; Negative Congestive Heart Failure RESPIRATORY: Negative Chronic Obstructive Pulmonary Disease (COPD) GENITOURINARY: Positive Renal Disease ENDOCRINE: Positive Hypothyroidism; Negative Diabetes Mellitus Type 1 or Diabetes Mellitus Type 2 OTHER HISTORY: Positive Falls; Negative MRSA Social History SMOKING STATUS: Never smoker Exam Vital Signs Temp Pulse Resp BP Pulse Ox O2 Del Method 97.5 F 141 H 18 120/88 H 97 Room Air 07/12/24 20:16 07/12/24 20:53 07/12/24 20:16 07/12/24 20:53 07/12/24 20:16 07/12/24 20:16 Narrative Exam Constitutional: well-developed, well-nourished elderly woman, lying in bed propped up,in no acute distress, noticed mild periorbital swelling. HEENT: NCAT, EOMI, reactive round pupils b/l, patent nares b/l, moist mucous membranes Lung: CTAB, no wheezing, no rhonchi Heart: Regular S1S2, no murmurs, gallops, or rubs Abdomen: Soft, non-distended, non-tender, bowel sounds present throughout Extremities: No cyanosis, clubbing, LE pulses present b/l, trace pitting edema Neurologic: No focal sensory or motor deficits noted, AOx3, appropriate affect Skin: Warm, dry, no lesions or rashes noted Results: Labs 07/12/24 20:49 07/12/24 20:49 Labs: Short CBC 07/12/24 Range/Units 20:49 WBC 9.8 (3.6-11.0) Thou/mm3 Hgb 12.8 (12.0-16.0) g/dL Hct 39.9 (36.0-46.0) % Plt Count 220 (140-440) Thou/mm3 BMP 07/12/24 20:49 Sodium 140 Potassium 4.1 Chloride 100 Carbon Dioxide 29.4 BUN 50 H Creatinine 3.0 H Glucose 171 H Calcium 9.2 Cardiac Enzymes 07/12/24 Range/Units 20:49 Troponin I 0.077 H* (0.0-0.045) ng/mL Liver Function 07/12/24 Range/Units 20:49 Total Bilirubin 0.7 (0.3-1.2) mg/dL AST 50 H (0-34) U/L ALT 40 (10-49) U/L Alkaline Phosphatase 146 H (46-116) U/L Albumin 4.5 (3.4-4.8) gm/dL Urine 07/12/24 Range/Units 20:41 Urine Color Yellow (Lt Yel-Yel) Urine Clarity Clear (Clear/Hazy) Urine pH 5.5 (5.0-7.0) Ur Specific [place] 1.019 (1.001-1.035) Urine Protein Trace (Neg - Trace) Urine Glucose (UA) 3+ A (Negative) Quality Measures Quality Measures VTE prophylaxis (eliquis 2.5 ) Advance care planning discussed with:: patient Medications Home Medications and Allergies Home Medications ?Medication ?Instructions ?Recorded ?Confirmed ?Type allopurinol 300 mg tablet 300 mg PO QDAY 12/26/2212/07 History atenolol 50 mg tablet 50 mg PO BID 12/26/22 History clonidine HCl 0.3 mg tablet 0.3 mg PO BID 12/26/22 History levothyroxine 100 mcg tablet 100 mcg PO QDAY 12/26/22 12/26/22 History simvastatin 40 mg tablet 40 mg PO QPM 12/26/22 History Allergies Allergy/AdvReac Type Severity Reaction Status Date / Time No Known Allergies Allergy Verified 07/12/24 19:59 Visit Medications Apixaban (Apixaban 2.5 Mg Tablet) 2.5 mg PO BID [facility] Stop: 08/11/24 21:14 Last Admin: 07/12/24 21:46 Dose: 2.5 mg Magnesium Sulfate (Magnesium Sulfate Ivpb) 2 gm in 50 mls @ 25 mls/hr IV X1 ONE Stop: 07/12/24 22:45 Last Admin: 07/12/24 20:54 Dose: 25 mls/hr Levothyroxine Sodium (Levothyroxine Sodium 100 Mcg Tablet) 100 mcg PO ACBR [facility] Stop: 08/12/24 05:59 Discontinued Medications Diltiazem HCl (Diltiazem Inj 5 Mg/Ml Vial 5 Ml) 15 mg IV X1 ONE Stop: 07/12/24 20:42 Last Admin: 07/12/24 20:53 Dose: 15 mg Diltiazem HCl (Diltiazem In D5w 125 Mg) 125 mg in 125 mls @ 5 mls/hr IV .Q24H [facility] Stop: 08/11/24 21:12 Lactated Ringer's (Lactated Ringers) 500 mls @ 999 mls/hr IV .Q31M ONE Stop: 07/12/24 22:11 Last Admin: 07/12/24 21:46 Dose: 999 mls/hr Metoprolol Succinate (Metoprolol Succinate Xl 25 Mg Tabcr) 50 mg PO X1 ONE Stop: 07/12/24 21:52 Assessment & Plan Plan Patient is an 83-year-old female with a past medical history of atrial fibrillation diagnosed in 2022, on Eliquis and metoprolol at home, CKD stage III, hypertension, hypothyroidism and hyperlipidemia who was directed to the to emergency room from her adapted physical education teacher office for elective cardioversion. Patient is present with her daughter at bedside, stated that she has been taking care of her mother for the past 1 year and a half and has No knowledge about prior medical condition of atrial fibrillation. But on chart review discharge summary from 2022 patient was diagnosed with A-fib RVR and started metoprolol and Eliquis. Patient is fairly asymptomatic, does not complain of any chest discomfort or shortness of breath, fever or dizziness. Currently patient is seen with A-fib RVR, heart rate in the 120s to the 110s. Patient was given 15 mg IV push of diltiazem but that dropped the patient's blood pressure. Currently given metoprolol 50 mg x 1, monitor for hypotension. Was started on Dilt drip 5 mg but was discontinued due to concern for heart failure. #A-fib/Aflutter with RVR- likely paroxysmal #CHF #Type II NSTEMI Likely chronic persistent A-fib likely paroxysmal A-fib flutter, his EKG from shows right bundle branch block and A-fib, N EKG in 2023 is sinus rhythm, and now sent over from adapted physical education teacher office for A-fib with RVR heart rate in the 140s to 150s, plan for elective cardioversion in the a.m. Patient was given 15 mg IV push of diltiazem but that dropped the patient's blood pressure. Currently given metoprolol 50 mg x 1, monitor for hypotension. Was started on Dilt drip 5 mg but was discontinued due to concern for heart failure. Given metoprolol succ 50mg x1 Plan : ? Gis Software Developer Dr. Mello is consulted, CHEVY with cardioversion in the a.m., appreciate recommendations ? Continue anticoagulation with dose adjusted apixaban ? Patient n.p.o. at midnight ? Echocardiogram was ordered but canceled as patient will get CHEVY in the morning ? Pending BNP ? Furosemide 20 mg daily #Michael on CKD DDx: Prerenal vs cardiorenal syndorme Past medical history of CKD stage IIIb, has bilateral shrunken kidneys on renal ultrasound, acute drop in GFR noted compared to 2 months ago. MICHAEL on CKD, likely etiology prerenal versus cardiorenal syndrome, will wait on CHEVY findings to assess for cardiac output. Appreciate cardiology recommendations. Patient does have pyuria, but negative urine bacteria,, also asymptomatic and denied any dysuria, will hold off on antibiotics at this point, less likely UTI. Though antibiotics can be considered if patient develops fever or leukocytosis or dysuria. ? Patient was given IV fluid bolus x 1 after blood pressure dropped following did push. ? Follow daily labs ? Avoid nephrotoxic drugs Plan of care discussed with attending Dr. Ulysses Raymond PGY2 Attending Provider Attestation/Addendum Pt was evaluated and plan formulated together with the housestaff team. I have reviewed the residents note above and agree with most of its content. Please refer to the residents note for additional details.
[2024-07-12 22:36] VITALS: BP 106/64; PULSE 109; RESP 19; O2SAT 97
[2024-07-12 22:48] VITALS: BP 104/77; PULSE 126
[2024-07-12] MEDS: METOPROLOL SUCCINATE XL 25 MG TABCR 50 MG PO (22:48)
[2024-07-12 23:24] LABS: B-Type Natriuretic Peptide 483 pg/mL (0-100)
[2024-07-12 23:39] LABS: Glucose Estimated Average 117 mg/dL (80-131); Hemoglobin A1C 5.7 % Hgb (4.8-6.0)
[2024-07-13] VITALS (20 sets, daily range): BP systolic 106–168; BP diastolic 56–100; PULSE 54–115; RESP 12–31; TEMP 35.9–37.2; O2SAT 2–100; BMI 27.3
[2024-07-13] MEDS: LEVOTHYROXINE SODIUM 100 MCG TABLET PO (05:31)
[2024-07-13 06:41] LABS: Basophils # (Auto) 0.1 Thou/mm3 (0.0-0.2); Basophils % (Auto) 1 % (0-2.5); Eosinophils # (Auto) 1.8 Thou/mm3 (0.0-0.5); Eosinophils % (Auto) 18 % (0-10); Hematocrit 39.8 % (36.0-46.0); Hemoglobin 13.1 g/dL (12.0-16.0); Immature Granulocytes % (Auto) 0 % (0-0); Immature Granulocytes Auto 0.02 Thou/mm3 (0.00-0.00); Lymphocytes # (Auto) 2.1 Thou/mm3 (1.0-4.8); Lymphocytes % (Auto) 22 % (10-50); Mean Corpuscular HGB Conc 32.9 g/dl (31.0-37.0); Mean Corpuscular Hemoglobin 30.2 pg (25.0-35.0); Mean Corpuscular Volume 92 fL (80-100); Monocytes # (Auto) 0.7 Thou/mm3 (0.0-0.8); Monocytes % (Auto) 7 % (0-12); Neutrophils # (Auto) 5.3 Thou/mm3 (1.8-7.7); Neutrophils % (Auto) 53 % (37-80); Nucleated Red Blood Cell % 0 /100 WBC (0); Platelet Count 211 Thou/mm3 (140-440); RDW Standard Deviation 53.8 fL (36.4-46.3); Red Blood Count 4.34 Miln/mm3 (4.00-5.20); White Blood Count 9.9 Thou/mm3 (3.6-11.0)
[2024-07-13 07:16] LABS: Alanine Aminotransferase 34 U/L (10-49); Albumin, Serum 4.2 gm/dL (3.4-4.8); Albumin/Globulin Ratio 1.4 (1.2-2.2); Alkaline Phosphatase 141 U/L (46-116); Anion Gap 10 (7-16); Aspartate Amino Transferase 40 U/L (0-34); BUN/Creatinine Ratio 19 Ratio (12-20); Bilirubin,Total 0.6 mg/dL (0.3-1.2); Blood Urea Nitrogen 51 mg/dL (9-23); Calcium 9.3 mg/dL (8.3-10.6); Calcium (Corrected) 9.3 mg/dL (8.5-10.1); Cardiac Risk Estimate 2.5 RATIO (3.7-5.6); Chloride 102 mMol/L (98-107); Cholesterol 119 mg/dL (132-200); Creatinine (Component) 2.7 mg/dL (0.6-1.3); Estimated Creatinine Clearance 12.9 mL/min (>60); Glucose 108 mg/dL (74-106); HDL Cholesterol 47 mg/dL (40-60); LDL Cholesterol,Calculated 53 mg/dL (0-130); Magnesium 2.6 mg/dL (1.6-2.6); Osmolality,Calculated 297 (275-295); Phosphorous 4.3 mg/dL (2.4-5.1); Sodium 142 mMol/L (136-145); Total Protein 7.2 gm/dL (5.7-8.2); Triglycerides 95 mg/dL (30-150); eGFR 17 See Note
--- NOTE | 2024-07-13 08:33 | ECHO_ITS ---
Transesophageal Echo Report Ht (in): 60 Wt (lb): 140 Exam Location: [facility] Status: Inpatient Network Operations Center Engineer: MALA Jason^^^^ Indications: Procedure Performed: BP: / HR: Medications 3 versed 75 fentanyl FINDINGS Left Ventricle Normal left ventricular size, wall thickness, systolic function with no obvious regional wall motion abnormalities. Normal left ventricular diastolic filling pattern for age. The ejection fraction is visually estimated at 55-60 %. Right Ventricle The right ventricle is normal in size and systolic function. The estimated right ventricular systolic pressure, __ mmHg. Left Atrium The left atrium is normal by two-dimensional, color flow and Doppler imaging with no structural abnormalities, no thrombus formation present. Right Atrium The right atrium is normal by two-dimensional imaging, color flow and Doppler imaging with no structural abnormalities, no thrombus formation present. Atrial Appendages The left atrial appendage appears normal with no evidence for thrombus. Atrial Septum The interatrial septum isc Aorta The aorta is normal by two-dimensional, color flow and Doppler interrogation. Mitral Valve Moderate mitral regurgitation. Aortic Valve Aortic valve sclerosis. Trace to mild aortic valve regurgitation. Tricuspid Valve There is mild tricuspid valve regurgitation. Pulmonic Valve The pulmonic valve is normal by two-dimensional, color flow and Doppler interrogation. There is no significant pulmonic valve regurgitation. Vessels The pulmonary artery appears normal. The inferior vena cava pulmonary and hepatic veins appear normal. Pericardium The pericardium is normal by two-dimensional imaging. There is no significant pericardial effusion. CONCLUSIONS Indication: Afib-rule out LA or MEÑO thrombus for cardioversion No LA or MEÑO thrombus. No PFO or ASD noted with bubble study Normal LV size and function with an EF of 55 to 60%. Normal RV size and function. Mild TR. Moderate MR with systolic blunting of the pulmonary vein flow Moderate to severe LA dilatation. Significant left atrial and left atrial appendage smoke seen Elijah Mello (Electronically Signed) Final Date: 14 Jul 2024 03:36
[2024-07-13] MEDS: SODIUM CHLORIDE 0.9% 1000 ML 1,000 ML 75 ML IV (08:52)
[2024-07-13] MEDS: APIXABAN 2.5 MG TABLET PO ×2 (08:53→20:52)
[2024-07-13] MEDS: POTASSIUM CHLORIDE 20 mEq TABCR PO (08:53)
[2024-07-13] MEDS: FAMOTIDINE INJ 10 MG/ML VIAL 2 ML 20 MG IVP (08:54)
[2024-07-13] MEDS: METOPROLOL SUCCINATE XL 25 MG TABCR 50 MG PO ×2 (08:55→20:50)
[2024-07-13] MEDS: Furosemide 20 MG TABLET PO (08:56)
--- NOTE | 2024-07-13 09:42 | PC.SS ---
Update: CHEVY pending. Cardioversion procedure is also pending.
[2024-07-13 11:10] LABS: Troponin I 0.076 ng/mL (0.0-0.045)
--- NOTE | 2024-07-13 11:44 | PC.SS ---
PLAIN GOODS HEMMER conducted bedside contact with the patient conduct initial assessment and to discuss discharge planning.? Patient confirmed demographic information.? Patient resides at home with daughter and spouse.? Patient utilizes a wheelchair to assist with mobility.? Patient does not utilize home oxygen.? Patient requires assistance with the completion of ADL?s.? Patient?s daughter assists the patient with completion of ADL?s.? Patient identified daughter, Edwina Antonio ; as surrogate medical decision maker.? Patient?s PCP is Dr. Amador.? Patient?s wind turbine sheet metal worker is Dr. Muller.? Patient does not participate with dialysis.? Patient utilizes [facility] for medication services.? Plan is for the patient to return home at the time of discharge.? Family will provide transportation on behalf of the patient.? No further discharge needs identified by the patient.? No further intervention required at this time, social service director will be available to address any further concerns.? Next of Kin: Edwina nAtonio D/C Plan: Home
--- NOTE | 2024-07-13 11:57 | ESPR_ITS ---
Documentation for date of: 07/13/24 Subjective Subjective Interval history: Overnight admission. Seen and examined at bedside patient's heart rate in the 60s. Denies any shortness of breath, chest discomfort, palpitations, lightheadedness, nausea, vomiting. Started on metoprolol succinate 50 mg p.o. twice daily per cardiology recommendations in addition to slow rate IVF. Troponins downtrended as well and so will no longer trend. Pending CHEVY and cardioversion per cardiology. If procedure goals well then anticipate possible discharge within next 24-48 hours. Exam Vital Signs Temp Pulse Resp BP Pulse Ox O2 Del Method 98.1 F 64 17 168/79 H 97 Room Air 07/13/24 11:36 07/13/24 11:36 07/13/24 11:36 07/13/24 11:36 07/13/24 11:36 07/13/24 11:36 Narrative Exam General: AOx3, no acute distress, able to speak full sentences HEENT: NC/AT, mucous membranes moist, bilateral sclera anicteric Cardiovascular: regular rate and rhythm, S1/S2 present, no murmurs appreciated Pulmonary: clear to auscultation bilaterally, no rales/rhonchi/wheezes Abdominal: soft, non-tender, non-distended, no rebound/guarding, normal bowel sounds present Musculoskeletal: normal ROM, no peripheral edema Skin: warm and dry, intact, no rashes Neuro: CN II-XII intact, no focal deficits Objective Labs 07/13/24 06:15 07/13/24 06:15 Labs: Laboratory Results - last 24 hr 07/12/24 07/12/24 07/13/24 20:41 20:49 06:15 WBC 9.8 9.9 RBC 4.33 4.34 Hgb 12.8 13.1 Hct 39.9 39.8 MCV 92 92 MCH 29.6 30.2 MCHC 32.1 32.9 RDW Std Deviation 54.1 H 53.8 H Plt Count 220 211 Neut % (Auto) 51 53 Lymph % (Auto) 29 22 [place] % (Auto) 7 7 Eos % (Auto) 13 H 18 H Baso % (Auto) 1 1 Neut # (Auto) 5.0 5.3 Lymph # (Auto) 2.8 2.1 [place] # (Auto) 0.7 0.7 Eos # (Auto) 1.3 H 1.8 H Baso # (Auto) 0.1 0.1 Immature Gran # (Auto) 0.03 H 0.02 H Absolute Nucleated RBC 0.00 0.00 Immature Gran % 0 0 Nucleated RBC % 0 0 PT 11.2 INR 1.0 APTT 29.2 Sodium 140 142 Potassium 4.1 4.0 Chloride 100 102 Carbon Dioxide 29.4 30.0 Anion Gap 11 10 BUN 50 H 51 H Creatinine 3.0 H 2.7 H Estim Creat Clear Calc 11.3 L 12.9 L eGFR 15 L 17 L BUN/Creatinine Ratio 17 19 Glucose [address] H [address] Glu mg/dL 117 Hemoglobin A1c 5.7 Calculated Osmolality 296 H 297 H Calcium 9.2 9.3 Corrected Calcium 9.2 9.3 Phosphorus 4.3 4.3 Magnesium 2.0 2.6 Total Bilirubin 0.7 0.6 AST 50 H 40 H ALT 40 34 Alkaline Phosphatase 146 H 141 H Troponin I 0.077 H* B-Natriuretic Peptide 483 H* Total Protein 7.7 7.2 Albumin 4.5 4.2 Globulin 3.2 3.0 Albumin/Globulin Ratio 1.4 1.4 Triglycerides 95 Cholesterol 119 L LDL Cholesterol, Calc 53 HDL Cholesterol 47 Cholesterol/HDL Ratio 2.5 L TSH 3.64 Free T4 1.34 Ur Collection Type Clean Catch Urine Color Yellow Urine Clarity Clear Urine pH 5.5 Ur Specific [place] 1.019 Urine Protein Trace Urine Glucose (UA) 3+ A Urine Ketones Negative Urine Blood Negative Urine Nitrite Negative Urine Bilirubin Negative Urine Urobilinogen (Auto) Negative Ur Leukocyte Esterase Positive Urine RBC 3 Urine WBC 37 H Ur Squamous Epith Cells 2 Urine Bacteria None Hyaline Casts < 1 Urine Yeast (Budding) Present A 07/13/24 10:12 WBC RBC Hgb Hct MCV MCH MCHC RDW Std Deviation Plt Count Neut % (Auto) Lymph % (Auto) [place] % (Auto) Eos % (Auto) Baso % (Auto) Neut # (Auto) Lymph # (Auto) [place] # (Auto) Eos # (Auto) Baso # (Auto) Immature Gran # (Auto) Absolute Nucleated RBC Immature Gran % Nucleated RBC % PT INR APTT Sodium Potassium Chloride Carbon Dioxide Anion Gap BUN Creatinine Estim Creat Clear Calc eGFR BUN/Creatinine Ratio Glucose Estimated Ave Glu mg/dL Hemoglobin A1c Calculated Osmolality Calcium Corrected Calcium Phosphorus Magnesium Total Bilirubin AST ALT Alkaline Phosphatase Troponin I 0.076 H* B-Natriuretic Peptide Total Protein Albumin Globulin Albumin/Globulin Ratio Triglycerides Cholesterol LDL Cholesterol, Calc HDL Cholesterol Cholesterol/HDL Ratio TSH Free T4 Ur Collection Type Urine Color Urine Clarity Urine pH Ur Specific [place] Urine Protein Urine Glucose (UA) Urine Ketones Urine Blood Urine Nitrite Urine Bilirubin Urine Urobilinogen (Auto) Ur Leukocyte Esterase Urine RBC Urine WBC Ur Squamous Epith Cells Urine Bacteria Hyaline Casts Urine Yeast (Budding) Quality Measures Quality Measures VTE prophylaxis (eliquis 2.5 ) Advance care planning discussed with:: patient and child Assessment & Plan Assessment Current Active Medications: Generic Name Dose Route Start Last Admin Trade Name Freq PRN Reason Stop Dose Admin Acetaminophen 650 mg 07/12/24 23:07 Acetaminophen 325 Mg Tablet PO 08/11/24 23:06 Q6HR PRN PAIN OR FEVER > 101 Apixaban 2.5 mg 07/12/24 21:15 07/13/24 08:53 Apixaban 2.5 Mg Tablet PO 08/11/24 21:14 2.5 mg BID FEMI Administration Famotidine 20 mg 07/13/24 09:00 07/13/24 08:54 Famotidine Inj 10 Mg/Ml Vial 2 Ml IVP 08/12/24 08:59 20 mg DAILY FEMI Administration Furosemide 20 mg 07/13/24 09:00 07/13/24 08:56 Furosemide 20 Mg Tablet PO 08/12/24 08:59 20 mg QAM FEMI Administration Sodium Chloride 1,000 mls @ 75 mls/hr 07/13/24 08:45 07/13/24 08:52 Ns IV 08/12/24 08:44 75 mls/hr .[id number] FEMI Administration Levothyroxine Sodium 100 mcg 07/13/24 06:00 07/13/24 05:31 Levothyroxine Sodium 100 Mcg Tablet PO 08/12/24 05:59 100 mcg ACBR FEMI Administration Metoprolol Succinate 50 mg 07/13/24 09:00 07/13/24 08:55 Metoprolol Succinate Xl 25 Mg Tabcr PO 08/12/24 08:59 50 mg BID FEMI Administration Plan Jelena Schultz is an 83-year-old female with a past medical history of atrial fibrillation on Eliquis and metoprolol at home, CKD stage III, hypertension, hypothyroidism and hyperlipidemia who was directed to the to ED from her application support lead's office for elective cardioversion. Admitted for possible CHEVY and cardioversion. #A-fib vs flutter with RVR, likely paroxysmal #CHF #NSTEMI type II Likely chronic persistent A-fib vs paroxysmal A-fib/flutter. EKG from shows RBBB and A-fib. EKG in 2023 is sinus rhythm. Now sent over from application support lead's office for A-fib with RVR, heart rate in 140s-150s. Given 15 mg IV push of diltiazem but dropped blood pressure so diltiazem drip discontinued after being on for short period. Also given metoprolol succinate 50 mg x 1. BNP 483 ? Cardiology consulted, appreciate recommendations ? Possible CHEVY with cardioversion in a.m. -> NPO ? Apixaban 2.5 mg PO BID ? Metoprolol succinate 50 mg PO BID ? Pending BNP ? Furosemide 20 mg p.o. daily #MICHAEL on CKD #CKD stage III-IV DDx: Prerenal vs cardiorenal syndorme Past medical history of CKD stage IIIb, has bilateral shrunken kidneys on renal ultrasound, acute drop in GFR noted compared to 2 months ago. MICHAEL on CKD, likely etiology prerenal versus cardiorenal syndrome, will wait on CHEVY findings to assess for cardiac output. Appreciate cardiology recommendations. UA showed pyuria but negative bacteria and asymptomatic. Will hold off on antibiotics at this point, less likely UTI. ? Given IV fluid bolus x 1 after blood pressure dropped following diltiazem push and creatinine improved ? Follow daily labs ? Avoid nephrotoxic drugs #Hypertension Rx of atenolol 50 mg PO BID, clonidine 0.3 mg PO BID, and metoprolol tartrate 50 mg PO BID seen However, BP within range on metoprolol succinate 50 mg PO BID and will continue with that for now as above If blood pressure increases, will restart home medications. #Hyperlipidemia Home rx of simvastatin 40 mg ? Atorvastatin 40 mg PO HS Hospital management: Disposition: pending CHEVY with cardioversion Fluids: received IVF in ED Diet: NPO Lines: PIV DVT prophylaxis: apixaban 2.5 mg p.o. BID CODE STATUS: full code ----- Plan discussed with attending physician Dr. Jahaira Moraes MD PGY-1 Internal Medicine Attending Provider Attestation/Addendum I have discussed and was present for the essential components of the history, physical examination, diagnosis, and treatment plan with the resident. I agree with the patient's care as documented by the resident and amended herein by me. Samir Campo DO. Patient seen and evaluated this AM. No acute events overnight, vital signs stable, patient afebrile in the morning. Pulse was 68 at time of bedside visit. Per cardiology, the patient may undergo a CHEVY with cardioversion which was explained to the patient. Prescient specialist recommendations, patient may be able to go home after the procedure however will be up to cardiology. Although this document has been carefully reviewed, there may still be some phonetic and other typographical errors. These errors are purely grammatical due to imperfections in the software program and should not be construed in any way to compromise the substance of the patient's medical care during this visit.
[2024-07-13] MEDS: BENZOCAINE 20% (Hurricaine) SPRAY 1 DOSE TOP (12:21)
[2024-07-13] MEDS: MIDAZOLAM INJ 1 MG/ML VIAL 2 ML 3 MG IV (12:21)
[2024-07-13] MEDS: fentaNYL CIT INJ 50 mCg/ML AMP 2ML IVP (12:21)
--- NOTE | 2024-07-13 12:30 | ESOP_ITS ---
Procedure Direct current cardioversion for uncontrolled atrial flutter Moderate Conscious Sedation with Versed and Fentanyl Date of Procedure 07/13/24 Pre Op Diagnosis Atrial Fibrillation / Flutter with RVR Indication Atrial Fibrillation / Flutter with RVR Post Op Diagnosis Normal Sinus Rhythm restored. Procedure Description Patient was in atrial fibrillation/flutter and ventricular rate was not controlled was brought in for elective cardioversion. Decision was made to perform cardioversion for the patient after performing a transesophageal echocardiogram. Transesophageal echocardiogram was completed today and did not show any significant LA or MEÑO thrombus.? Please see CHEVY report from today for rest of the findings.? Patient was already on anticoagulation with eliquis.. Patient was taken to the crown and bridge dental lab technician for the CHEVY and cardioversion, both anterior and posterior pads were placed.? Patient was given moderate sedation and receiv ed a total of 3 mg of Versed and 50 mcg of fentanyl prior to the procedure to provide him enough for sedation. A biphasic defibrillator was used.? A single 50 J synchronized shock was given and the patient converted successfully into normal sinus rhythm.? No complications during or after the procedure.? Patient is doing well.? His heart rate was stable between 50 to 60 bpm and appears to be normal sinus rhythm on the telemetry.? Recommend to perform an EKG to document normal sinus rhythm postprocedure.? Patient will be monitored in the crown and bridge dental lab technician for the next 1-2 hours and will be sent back to telemetry if hemodynamically stable. No complications. Estimated Blood Loss 0 Specimen(s) Specimen(s): None Conclusion Successful direct current cardioversion of Atrial Fibrillation / Flutter to Normal Sinus Rhythm Recommendation Continue metoprolol XL 50 mg BID and continue to uptitrate based on the heart rate and blood pressure Continue Eliquis 2.5 mg BID for anticaogulation. EKG to document NSR post procedure. Patient recommended to follow up in 1 week in the clinic. Surgical Staff Surgeon: Elijah Mello MD
--- NOTE | 2024-07-13 12:55 | EKG_ITS ---
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
--- NOTE | 2024-07-13 14:09 | PD.RESCONSUL ---
HPI Data of Consult Requesting Physician: Lan Campo DO Admitting Provider: Edson Arora MD Attending Provider: Lan Campo DO Primary Care Provider: Elijah Mello MD Consult Narrative History of present illness: This is an 83-year-old female with PMHx of A-fib, moderate PAH, CKD stage IV, HTN, HLD, hypothyroidism, RA/OA. She was referred to our office by her oven dauber, Dr. Amador, and was seen in officeyesterday evening at 4 pm. During the visit, EKG showed a flutter/A-fib with RVR, HR 150. Patient was mostly asymptomatic, hemodynamically stable otherwise. We recommended admission for further management. She was referred for LE swelling, and was recently seen in ED for asymmetrical lower extremity edema, venous Doppler at the time was negative. She has been on LASIX, and no LE edema noted on exam. In office, she denied chest pain, palpitation, shortness of breath, lightheadedness, headaches, dizziness, weakness, fatigue, fall, GI or urinary symptoms. In ED, she was fairly asymptomatic, also denied chest discomfort, shortness of breath, fever or dizziness. On ED arrival, afebrile, BP 131/75, HR 147, satting upper 90s on room air. EKG also showed a flutter with RVR, HR 150, QTc 4.1. Other lab findings showed an MICHAEL with creatinine of 3.0 (baseline around 2), UN 50, AST 50, ALT 40, troponin 0.077, BNP 43, normal electrolytes including magnesium and potassium. CBC was mostly within normal limits without leukocytosis. UA showed 3+ GLUCOSE, positive LE, WBC 37. CXR showed mild congestion, no pneumonia. Renal ultrasound showed small kidneys and bilateral renal cortical thinning and parenchymal scarring. She was given 500 cc fluid, continued on ELIQUIS, given METOPROLOL 50 mg x 1, started on DILTIAZEM drip was shortly discontinued after heart rate was controlled, around 110. Repeat labs this morning showed improving kidney function, creatinine 2.7, BUN 51, EGFR 17, troponin 0.076, improved AST 40, CBC, again mostly WNL., TSH 3.64. This morning, she continues to be in A-fib, with heart rate 110s, hemodynamically stable. CHEVY was performed and showed no evidnce of left atrial or left atrial appendage thrombus. Subsequently she was successfully cardioverted, without any complications. Current vitals are showing BP 114/66, HR 55. Patient remains hemodynamically stable. Will continue with METOPROLOL succinate 50 mg BID, ELIQUIS. Continue with NS at 75 cc/h. cc:: cc: Lan Campo, Review of Systems Review of Systems Narrative Review of Systems: 12 system review is negative except for above mentioned Past Medical History Past Medical History NEUROLOGIC: Positive Neurological Disorders CARDIAC: Positive Hypertension; Negative Congestive Heart Failure RESPIRATORY: Negative Chronic Obstructive Pulmonary Disease (COPD) GENITOURINARY: Positive Renal Disease ENDOCRINE: Positive Hypothyroidism; Negative Diabetes Mellitus Type 1 or Diabetes Mellitus Type 2 OTHER HISTORY: Positive Falls; Negative MRSA Social History SMOKING STATUS: Never smoker Exam Vital Signs Temp Pulse Resp BP Pulse Ox O2 Del Method O2 Flow Rate 98.1 F 55 L 17 114/66 98 Room Air 2 07/13/24 11:36 07/13/24 13:45 07/13/24 13:45 07/13/24 13:45 07/13/24 13:45 07/13/24 13:45 07/13/24 13:15 Narrative Exam GENERAL Normal appearing elderly female, NAD HEENT NCAT.?SUGEY. Oral mucosa is moist. Patent Nares NECK Supple, nontender, no thyromegaly, no meningismus, no JVD, no step offs CHEST RRR, no m/g/r CTAB, no w/r/r. Symmetrical chest rise. No intercostal subcostal retraction Atraumatic, nontender, no crepitus, symmetrical expansion. ABDOMEN Soft, flat, nontender. No guarding/rebound tenderness/masses. Bowel sounds presents EXTREMITIES No edema/cyanosis.? SKIN Warm and dry, no jaundice/rashes. NEUROMUSCULAR No lumbar or midline, no CVA, no paraspinal muscle spasm or tenderness. Moves all 4 extremities well, with full ROM and good CSM. THOMSON x4, CN II-XII grossly intact. No focal neurologic deficits. PSYCHIATRY Normal mood and affect, cooperative, no SI or HI or hallucinations. Results Labs 07/13/24 06:15 07/13/24 06:15 Labs: Short CBC 07/12/24 07/13/24 Range/Units 20:49 06:15 WBC 9.8 9.9 (3.6-11.0) Thou/mm3 Hgb 12.8 13.1 (12.0-16.0) g/dL Hct 39.9 39.8 (36.0-46.0) % Plt Count 220 211 (140-440) Thou/mm3 BMP 07/12/24 07/13/24 20:49 06:15 Sodium 140 142 Potassium 4.1 4.0 Chloride 100 102 Carbon Dioxide 29.4 30.0 BUN 50 H 51 H Creatinine 3.0 H 2.7 H Glucose 171 H 108 H D Calcium 9.2 9.3 Cardiac Enzymes 07/12/24 07/13/24 Range/Units 20:49 10:12 Troponin I 0.077 H* 0.076 H* (0.0-0.045) ng/mL Liver Function 07/12/24 07/13/24 Range/Units 20:49 06:15 Total Bilirubin 0.7 0.6 (0.3-1.2) mg/dL AST 50 H 40 H (0-34) U/L ALT 40 34 (10-49) U/L Alkaline Phosphatase 146 H 141 H (46-116) U/L Albumin 4.5 4.2 (3.4-4.8) gm/dL Urine 07/12/24 Range/Units 20:41 Urine Color Yellow (Lt Yel-Yel) Urine Clarity Clear (Clear/Hazy) Urine pH 5.5 (5.0-7.0) Ur Specific [place] 1.019 (1.001-1.035) Urine Protein Trace (Neg - Trace) Urine Glucose (UA) 3+ A (Negative) Quality Measures Quality Measures VTE prophylaxis (eliquis 2.5 ) Advance care planning discussed with:: patient Medications Home Medications and Allergies Home Medications ?Medication ?Instructions ?Recorded ?Confirmed ?Type allopurinol 300 mg tablet 300 mg PO QDAY 12/26/22 12/26/22 History atenolol 50 mg tablet 50 mg PO BID 12/26/22 12/26/22 History clonidine HCl 0.3 mg tablet 0.3 mg PO BID 12/26/22 12/26/22 History levothyroxine 100 mcg tablet 100 mcg PO QDAY 12/26/22 12/26/22 History simvastatin 40 mg tablet 40 mg PO QPM 12/26/22 12/26/22 History Allergies Allergy/AdvReac Type Severity Reaction Status Date / Time No Known Allergies Allergy Verified 07/12/24 19:59 Visit Medications Acetaminophen (Acetaminophen 325 Mg Tablet) 650 mg PO Q6HR PRN PRN Reason: PAIN OR FEVER > 101 Stop: 08/11/24 23:06 Apixaban (Apixaban 2.5 Mg Tablet) 2.5 mg PO BID FEMI Stop: 08/11/24 21:14 Last Admin: 07/13/24 08:53 Dose: 2.5 mg Atorvastatin Calcium (Atorvastatin Calcium 20 Mg Tablet) 40 mg PO HS [facility] Stop: 08/12/24 20:59 Famotidine (Famotidine Inj 10 Mg/Ml Vial 2 Ml) 20 mg IVP DAILY FEMI Stop: 08/12/24 08:59 Last Admin: 07/13/24 08:54 Dose: 20 mg Furosemide (Furosemide 20 Mg Tablet) 20 mg PO QAM FEMI Stop: 08/12/24 08:59 Last Admin: 07/13/24 08:56 Dose: 20 mg Sodium Chloride (Ns) 1,000 mls @ 75 mls/hr IV .[id number] FEMI Stop: 08/12/24 08:44 Last Admin: 07/13/24 08:52 Dose: 75 mls/hr Levothyroxine Sodium (Levothyroxine Sodium 100 Mcg Tablet) 100 mcg PO ACBR FEMI Stop: 08/12/24 05:59 Last Admin: 07/13/24 05:31 Dose: 100 mcg Metoprolol Succinate (Metoprolol Succinate Xl 25 Mg Tabcr) 50 mg PO BID FEMI Stop: 08/12/24 08:59 Last Admin: 07/13/24 08:55 Dose: 50 mg Discontinued Medications Benzocaine (Benzocaine 20% (Hurricaine) Cornelius 1 Dose) 0 dose TOP X1 ONE Stop: 07/13/24 12:22 Last Admin: 07/13/24 12:21 Dose: 1 dose Diltiazem HCl (Diltiazem Inj 5 Mg/Ml Vial 5 Ml) 15 mg IV X1 ONE Stop: 07/12/24 20:42 Last Admin: 07/12/24 20:53 Dose: 15 mg Fentanyl Citrate (Fentanyl Cit Inj 50 Mcg/Ml Amp 2ml) 50 mcg IVP X1 ONE Stop: 07/13/24 12:22 Last Admin: 07/13/24 12:21 Dose: 50 mcg Magnesium Sulfate (Magnesium Sulfate Ivpb) 2 gm in 50 mls @ 25 mls/hr IV X1 ONE Stop: 07/12/24 22:45 Last Infusion: 07/12/24 22:54 Dose: Infused Diltiazem HCl (Diltiazem In D5w 125 Mg) 125 mg in 125 mls @ 5 mls/hr IV .Q24H FEMI Stop: 08/11/24 21:12 Last Admin: 07/12/24 22:25 Dose: Not Given Lactated Ringer's (Lactated Ringers) 500 mls @ 999 mls/hr IV .Q31M ONE Stop: 07/12/24 22:11 Last Infusion: 07/12/24 21:48 Dose: 0 mls/hr Metoprolol Succinate (Metoprolol Succinate Xl 25 Mg Tabcr) 50 mg PO X1 ONE Stop: 07/12/24 21:52 Last Admin: 07/12/24 22:48 Dose: 50 mg Metoprolol Succinate (Metoprolol Succinate Xl 25 Mg Tabcr) 100 mg PO BID FEMI Stop: 08/12/24 08:59 Midazolam HCl (Midazolam Inj 1 Mg/Ml Vial 2 Ml) 3 mg IV X1 ONE Stop: 07/13/24 12:22 Last Admin: 07/13/24 12:21 Dose: 3 mg Potassium Chloride (Potassium Chloride 20 Meq Tabcr) 20 meq PO X1 ONE Stop: 07/13/24 08:24 Last Admin: 07/13/24 08:53 Dose: 20 meq Assessment & Plan Plan This is an 83-year-old female with PMHx of A-fib, moderate PAH, CKD stage IV, HTN, HLD, hypothyroidism, RA/OA. She was referred to our office by her oven dauber, Dr. Amador, and was seen in office morning. During the visit, EKG showed a flutter/A-fib with RVR, HR 150. Patient was mostly asymptomatic, hemodynamically stable otherwise. We recommended admission for further management. A-fib/flutter with RVR NSTEMI type II CHF Seen in office on the day of admission with findings of A-fib/flutter with RVR, HR 150. Recommended admission to hospital for cardioversion. In ED, BP 147, ECG showed flutter/afib with RVR. TSH WNL. Initially was on DIL drip which was discontinued shortly after HR improved to 110s. She has hx of AFIB on ELIQUIS. This morning, HR 110s, still in afib/flutter. CHEVY r/o thrombus, followed by successfull cardioeversion. Remained hemoydynamically stable, BP WNL, HR upper 50s. Remains asymptomatic. She had slight bump in troponin, peaked at 0.077, likely demand ischemia. She referred to office for LE edema for which she has been on LASIX, no edema or crackles on exam. Last echo from 2022 showed normal LV size and function, EF 50-55%, normal RV size and function and moderate PAH. BNP 483 on admission. She had an MICHAEL with CR 3.0 with baseline CR around 2.0. Likely she has RVR in setting of dehydrated from diuresis or poor oral intake. ? Continue METORPOLOL SUCC 50 mg BID ? Continue ELIQUIS ? Continue with NS at 75 cc/H ? Will need close follow-up in office on discharge, optimization of heart rate and rhythm, other cardiology workup. ? Hold LASIX for now ? Daily labs MICHAEL on CKD CKD stage IV CR 3.0 (baseline around 2). Likely she poor perfusion in setting of RVR vs dehydration. No signs of fluid overload on exam as mentions above. ? Continue with NS at 75 cc/HR ? Hold LASIX for now ? Renally dose meds, avoid overdiuresis and NEPHROTOXINS ? Daily CMP HTN, HLD, hypothyroidism Currently normotensive with METOPROLOL as above TG 95, cholesterol 119, LDL 53, HDL 47. TSH WNL. ? Continue home LEVOTHYROXINE 100 mcg ? Continue current management ? Will see you in office for BP optimization Gout No signs of gout flareups ? Resume home ALLOPURINOL on discharge. Thank you for the opportunity to participate in the patient's care. Case was discussed with attending, Dr. Mello. Kenzie Hopper DO PGYI Attending Provider Attestation/Addendum I have personally seen and examined the patient separately on the above date of service and discussed the plan of care with the resident. I reviewed the resident Dr. Kenzie Hopper consultation progress note and agree with the resident findings and plan in the note above and have also edited the documentation to reflect my findings and plan. 83-year-old female with a past medical history of paroxysmal atrial fibrillation, CKD stage IV, essential hypertension, hyperlipidemia, hypothyroidism, osteoarthritis, moderate PAH was initially seen by me in the office yesterday evening around 4 PM and the EKG showed atrial flutter with RVR in 2 is to 1 block at 150 bpm. Patient was sent to the ER and recommended admission for CHEVY with cardioversion. Patient presented to the clinic yesterday and EKG in the office showed atrial flutter with RVR at 150 bpm with trace to 1 block. Patient denied any kind of palpitations or any symptoms that she was feeling fine patient did not have any significant shortness of breath or orthopnea or PND or dizziness or syncope or fall or palpitations or chest pain or chest pressure. I recommended that admission for further evaluation with labs and CHEVY with cardioversion as it is unclear how long the patient has been in atrial fibrillation/flutter and could not assess the complaints of anticoagulation or Eliquis intake as it was her first visit. In the emergency department initial heart rate was again 147 bpm with BP of 1 30-1 open send 5 mmHg saturation was 94% on room air afebrile EKG showed again atrial flutter with RVR at 150 bpm initial labs done in the emergency department showed sodium of 140 potassium of 4.1, BUN of 50 and creatinine of 3.0 baseline creatinine is around 2.0 and baseline BUN around 30-35 and creatinine clearance of 12, glucose of 171, AST was 50, alk phos was 146 rest of the LFTs normal. Initial troponin was 0.77 and repeat troponin was 0.076 BNP is 483 previous BNP was 1232 TG 95 cholesterol 119, LDL 53, HDL 47, TSH 3.64 and free T4 1.34. Magnesium was 2.0 A1c was 5.7. Assessment and plan: 1. Atrial flutter/fibrillation with RVR 2. Acute on chronic kidney disease stage IV 3. Troponin regurgitation mostly NSTEMI type II in the setting of atrial flutter with RVR 4. Essential hypertension 5. Hyperlipidemia 6. Hypothyroidism 7. Osteoarthritis 8. Moderate PAH on the previous echo in 2022 9. Moderate MR 10. GERD Patient presented to the clinic yesterday for the initial consultation and was found to have atrial flutter with RVR and was sent to the emergency department for admission for CHEVY with cardioversion. Patient at home on metoprolol tartrate 100 mg twice daily and Eliquis 2.5 mg twice daily. Recommended diltiazem IV bolus along with drip for only rate control and no amiodarone for now. Patient/Vascor is elevated and is on Eliquis 2.5 mg twice daily which we recommend to continue To keep potassium greater than 4 and magnesium greater than 2.0 In addition patient was recommended to change from metoprolol tartrate to metoprolol XL and will start patient on 50 mg twice daily and will continue to uptitrate based on the heart rate as well as blood pressure. Her atrial flutter with RVR is mostly secondary to the acute on chronic kidney disease from possible dehydration. Agree with gentle IV hydration for now and continue to monitor the renal function Patient kept n.p.o. overnight for CHEVY with cardioversion today. Patient denies any kind of swallowing problems or any kind of esophageal interventions or previous surgeries. Patient denies any kind of gastric ulcers bleeding and any other hematemesis or hematochezia. Patient denies any issues with anesthesia previously. Patient explained all the risks, benefits and alternatives of CHEVY including the risk of perforation, bleeding, respiratory failure secondary to sedation, injury to teeth gums esophagus and stomach. Patient understands all risks and benefits and provided consent for the procedure. Acute on chronic kidney disease stage IV BUN was 51 and creatinine was 3.0. Baseline creatinine is 2.0 and BUN is around 30-35. Oral. Does not appear to be much fluid overloaded chest x-ray does show mild vascular congestion but BNP was 483 and previous BNP is was 1200 and the rest of all the BNP's were previously higher. Agree with gentle IV hydration for now and continue to monitor renal function Patient will need to be on Lasix. Recommend 40 mg once daily orally at the time of discharge TG 95 cholesterol 119, LDL 53, HDL 47, TSH 3.64 and free T4 1.34. A1c was 5.7. Continue on Lipitor for hyperlipidemia. Mildly elevated troponin 0.076 and 0.077 and mostly secondary to NSTEMI type II from supply/demand mismatch in the setting of atrial flutter with RVR. EKG without any acute ST-T changes and recommended to check echo for any regional wall motion abnormalities. No further troponins needed. No need of any heparin drip. Patient already on statin and beta-keila along with Eliquis. Management of rest of the medical conditions as per primary team and other consultants. Thank you for the consult and allowing me to participate in the care of the patient. Cardiology will continue to follow. Elijah Mello M.D. Interventional Cardiology
--- NOTE | 2024-07-13 14:34 | PC.SS ---
Rounding Note: Patient possible candidate to discharge home this evening.
--- NOTE | 2024-07-13 14:47 | PC.NURSE ---
1343 patient is awake, alert, breathing unlabored, s/p CHEVY and cardioversion by Dr. Mello, report received from Teresa RN, daughter at bedside 1407 patient is awake, alert, breathing unlabored report given to Nahun BRANHAM, covering RN for Sara. patient transferred back to room 271 accompained by daughter.
[2024-07-13] MEDS: DiphenhydrAMINE 25 MG CAPSULE PO (14:59)
[2024-07-13 17:20] LABS: Creatinine MALB Rnd Ur 39 mg/dL (30-125); Creatinine,Random Urine 39 mg/dL (30-125); Microalbumin Creat Ratio 113 mg/gCrea (<30); Microalbumin, Random Urine 44 mg/L (0-300)
[2024-07-13] MEDS: MELATONIN 3 MG TABLET PO (20:52)
[2024-07-13] MEDS: ATORVASTATIN CALCIUM 20 MG TABLET 40 MG PO (20:52)
[2024-07-14] VITALS (8 sets, daily range): BP systolic 120–162; BP diastolic 71–92; PULSE 57–75; RESP 16–22; TEMP 36.4–37.3; O2SAT 97–99; BMI 27.1
[2024-07-14] MEDS: ZOLPIDEM 5 MG TABLET PO (00:55)
[2024-07-14] MEDS: SODIUM CHLORIDE 0.9% 1000 ML 1,000 ML 75 ML IV ×2 (00:55→12:31)
[2024-07-14] MEDS: LEVOTHYROXINE SODIUM 100 MCG TABLET PO (05:48)
[2024-07-14 05:55] LABS: Basophils # (Auto) 0.1 Thou/mm3 (0.0-0.2); Basophils % (Auto) 1 % (0-2.5); Eosinophils # (Auto) 1.4 Thou/mm3 (0.0-0.5); Eosinophils % (Auto) 14 % (0-10); Hematocrit 36.4 % (36.0-46.0); Hemoglobin 11.6 g/dL (12.0-16.0); Immature Granulocytes % (Auto) 0 % (0-0); Immature Granulocytes Auto 0.04 Thou/mm3 (0.00-0.00); Lymphocytes # (Auto) 1.9 Thou/mm3 (1.0-4.8); Lymphocytes % (Auto) 18 % (10-50); Mean Corpuscular HGB Conc 31.9 g/dl (31.0-37.0); Mean Corpuscular Hemoglobin 30.2 pg (25.0-35.0); Mean Corpuscular Volume 95 fL (80-100); Monocytes # (Auto) 0.7 Thou/mm3 (0.0-0.8); Monocytes % (Auto) 7 % (0-12); Neutrophils # (Auto) 6.1 Thou/mm3 (1.8-7.7); Neutrophils % (Auto) 60 % (37-80); Nucleated Red Blood Cell % 0 /100 WBC (0); Platelet Count 181 Thou/mm3 (140-440); RDW Standard Deviation 55.4 fL (36.4-46.3); Red Blood Count 3.84 Miln/mm3 (4.00-5.20); White Blood Count 10.2 Thou/mm3 (3.6-11.0)
[2024-07-14 06:33] LABS: Alanine Aminotransferase 30 U/L (10-49); Albumin, Serum 4.1 gm/dL (3.4-4.8); Albumin/Globulin Ratio 1.5 (1.2-2.2); Alkaline Phosphatase 123 U/L (46-116); Anion Gap 9 (7-16); Aspartate Amino Transferase 45 U/L (0-34); BUN/Creatinine Ratio 18 Ratio (12-20); Bilirubin,Total 0.9 mg/dL (0.3-1.2); Blood Urea Nitrogen 43 mg/dL (9-23); Calcium 8.7 mg/dL (8.3-10.6); Calcium (Corrected) 8.7 mg/dL (8.5-10.1); Chloride 106 mMol/L (98-107); Creatinine (Component) 2.4 mg/dL (0.6-1.3); Estimated Creatinine Clearance 14.5 mL/min (>60); Globulin 2.8 gm/dL (2.3-3.5); Glucose 99 mg/dL (74-106); Magnesium 2.3 mg/dL (1.6-2.6); Osmolality,Calculated 293 (275-295); Phosphorous 4.2 mg/dL (2.4-5.1); Potassium 4.8 mMol/L (3.4-5.1); Sodium 142 mMol/L (136-145); Total Protein 6.9 gm/dL (5.7-8.2); eGFR 19 See Note
[2024-07-14] MEDS: FAMOTIDINE INJ 10 MG/ML VIAL 2 ML 20 MG IVP (08:55)
[2024-07-14] MEDS: METOPROLOL SUCCINATE XL 25 MG TABCR 50 MG PO ×2 (08:55→20:45)
[2024-07-14] MEDS: APIXABAN 2.5 MG TABLET PO ×2 (08:56→20:44)
--- NOTE | 2024-07-14 10:15 | CHAP ---
Patient was visited by the Spiritual Care Volunteer who prayed for them. (Volunteer was in the hospital from 09:15-10:15).
--- NOTE | 2024-07-14 13:00 | ESPR_ITS ---
Documentation for date of: 07/14/24 Subjective - Hospitalist Subjective Interval history: No acute events overnight, vital signs stable, patient afebrile however the patient is a bit more confused this morning. She did get a dose of Ambien last night for an somnolence, labs largely unremarkable with exception of a creatinine of 2.4 which is downtrending. Exam Vital Signs Temp Pulse Resp BP Pulse Ox O2 Del Method O2 Flow Rate 98.1 F 66 21 H 123/71 98 Room Air 2 07/14/24 12:00 07/14/24 12:00 07/14/24 12:00 07/14/24 12:00 07/14/24 12:00 07/14/24 12:00 07/13/24 16:00 Narrative GENERAL APPEARANCE: NAD, resting comfortably, somewhat confused HEENT: Normocephalic, atraumatic, extraocular movements intact NECK: Supple CARDIOVASULAR: NSR, S1, S2 heard without S3-S4 or murmur no rubs or gallops. LUNGS/CHEST: CTA bilaterally ABDOMEN: Soft, nontender, with normal bowel sounds. No pulsatile masses. No rebound, rigidity, or guarding. SKIN: Warm and dry without rashes NEURO: Alert and oriented x 1, patient is confused this morning, missed naming people, confused on where she is at. Objective - Hospitalist Labs Diagram: 07/14/24 05:06 07/14/24 05:06 Labs: Laboratory Results - last 24 hr 07/13/24 07/14/24 15:35 05:06 WBC 10.2 RBC 3.84 L Hgb 11.6 L Hct 36.4 MCV 95 MCH 30.2 MCHC 31.9 RDW Std Deviation 55.4 H Plt Count 181 D Neut % (Auto) 60 Lymph % (Auto) 18 [place] % (Auto) 7 Eos % (Auto) 14 H Baso % (Auto) 1 Neut # (Auto) 6.1 Lymph # (Auto) 1.9 [place] # (Auto) 0.7 Eos # (Auto) 1.4 H Baso # (Auto) 0.1 Immature Gran # (Auto) 0.04 H Absolute Nucleated RBC 0.00 Immature Gran % 0 Nucleated RBC % 0 Sodium 142 Potassium 4.8 D Chloride 106 Carbon Dioxide 27.0 Anion Gap 9 BUN 43 H Creatinine 2.4 H Estim Creat Clear Calc 14.5 L eGFR 19 L BUN/Creatinine Ratio 18 Glucose 99 Calculated Osmolality 293 Calcium 8.7 Corrected Calcium 8.7 Phosphorus 4.2 Magnesium 2.3 Total Bilirubin 0.9 AST 45 H ALT 30 Alkaline Phosphatase 123 H Total Protein 6.9 Albumin 4.1 Globulin 2.8 Albumin/Globulin Ratio 1.5 Ur Random Creatinine 39 Ur Random Microalbumin 44 U Creat (Microalbumin) 39 Microalb/Creat Ratio 113 H Assessment & Plan Plan: Jelena Schultz is an 83-year-old female with a past medical history of atrial fibrillation on Eliquis and metoprolol at home, CKD stage III, hypertension, hypothyroidism and hyperlipidemia who was directed to the to ED from her store custodian's office for elective cardioversion. Admitted for CHEVY and cardioversion. #Acute encephalopathy, likely medication induced from Ambien versus Versed and fentanyl - Will continue to monitor, likely from Ambien in combination with anesthetics given yesterday #A-fib vs flutter with RVR, likely paroxysmal status post CHEVY with cardioversion on 07/13 #CHF #NSTEMI type II Likely chronic persistent A-fib vs paroxysmal A-fib/flutter. EKG from shows RBBB and A-fib. EKG in 2023 is sinus rhythm. Now sent over from store custodian's office for A-fib with RVR, heart rate in 140s-150s. Given 15 mg IV push of diltiazem but dropped blood pressure so diltiazem drip discontinued after being on for short period. Also given metoprolol succinate 50 mg x 1. BNP 483 ? Cardiology consulted, appreciate recommendations ? Continue apixaban 2.5 mg PO BID ? Continue metoprolol succinate 50 mg PO BID ? Restart Lasix on discharge #MICHAEL on CKD #CKD stage III-IV DDx: Prerenal vs cardiorenal syndorme Past medical history of CKD stage IIIb, has bilateral shrunken kidneys on renal ultrasound, acute drop in GFR noted compared to 2 months ago. MICHAEL on CKD, likely etiology prerenal versus cardiorenal syndrome, will wait on CHEVY findings to assess for cardiac output. Appreciate cardiology recommendations. UA showed pyuria but negative bacteria and asymptomatic. Will hold off on antibiotics at this point, less likely UTI. -CTM #Hypertension Rx of atenolol 50 mg PO BID, clonidine 0.3 mg PO BID, and metoprolol tartrate 50 mg PO BID seen However, BP within range on metoprolol succinate 50 mg PO BID and will continue with that for now as above -CTM #Hyperlipidemia Home rx of simvastatin 40 mg ? Atorvastatin 40 mg PO HS Hospital management: Disposition: Pending clinical course Fluids: received IVF in ED Diet: NPO Lines: PIV DVT prophylaxis: apixaban 2.5 mg p.o. BID CODE STATUS: full code Time Spent with Patient Time: Total time spent is greater than 50% in coordination of care (as documented) at patient's floor/unit and/or counseling patient: Time with patient: 25 - 35 minutes Reason for Continued Stay Reason for continued stay: further monitoring Quality Measures Quality Measures VTE prophylaxis (eliquis 2.5 ) Advance care planning discussed with:: child
--- NOTE | 2024-07-14 13:53 | PC.NURSE ---
Per Dr Chirinos/ Dr Manan Mandujano, no ambien to be given to patient tonight. 3mg melatonin can be given for sleep aid. Per Dr Manan Mandujano, hold MN vitals, so patient can rest uninterupted.
--- NOTE | 2024-07-14 14:34 | PC.SS ---
Update: Patient remains altered. Antonieta sullivan/steve. Discharge home tomorrow.
--- NOTE | 2024-07-14 15:05 | PD.IMPROG ---
Documentation for date of: 07/14/24 Subjective Subjective Interval history: Patient seen and examined at the bedside. Patient appears to be having delirium at the present moment with waxing and waning of the mental status. Patient apparently received Ambien last night and appears to be slightly drowsy. Patient is status post CHEVY and cardioversion on 07/13/2024 Telemetry reviewed and patient continues to be in normal sinus rhythm and heart rate is well-controlled between 50-70 bpm Recommend to continue with metoprolol XL 50 mg twice daily for rate control. Continue Eliquis 2.5 mg twice daily for anticoagulation. Recommend to hold off any Ambien or any other antipsychotics. Okay to give melatonin for sleep and start on delirium precautions for the patient. Acute kidney injury continues to improve and BUN is 43 and creatinine is 2.4 from a peak of 50 and 3.0. Continue IV hydration for now and stop at midnight today. Reevaluate renal function tomorrow. If patient's creatinine returns to normal then patient should be discharged home if you clinically stable. Exam Vital Signs Temp Pulse Resp BP Pulse Ox O2 Del Method O2 Flow Rate 98.1 F 66 21 H 123/71 98 Room Air 2 07/14/24 12:00 07/14/24 12:00 07/14/24 12:00 07/14/24 12:00 07/14/24 12:00 07/14/24 12:00 07/13/24 16:00 Narrative Exam GENERAL APPEARANCE: NAD, resting comfortably, somewhat confused HEENT: Normocephalic, atraumatic, extraocular movements intact NECK: Supple CARDIOVASULAR: NSR, S1, S2 heard with 2 or 6 systolic murmur heard at the apex, no rubs or gallops. LUNGS/CHEST: CTA bilaterally ABDOMEN: Soft, nontender, with normal bowel sounds. No pulsatile masses. No rebound, rigidity, or guarding. SKIN: Warm and dry without rashes NEURO: Alert and oriented x 1, patient is confused this morning, missed naming people, confused on where she is at. Objective Labs 07/14/24 05:06 07/14/24 05:06 Labs: Laboratory Results - last 24 hr 07/13/24 07/14/24 15:35 05:06 WBC 10.2 RBC 3.84 L Hgb 11.6 L Hct 36.4 MCV 95 MCH 30.2 MCHC 31.9 RDW Std Deviation 55.4 H Plt Count 181 D Neut % (Auto) 60 Lymph % (Auto) 18 [place] % (Auto) 7 Eos % (Auto) 14 H Baso % (Auto) 1 Neut # (Auto) 6.1 Lymph # (Auto) 1.9 [place] # (Auto) 0.7 Eos # (Auto) 1.4 H Baso # (Auto) 0.1 Immature Gran # (Auto) 0.04 H Absolute Nucleated RBC 0.00 Immature Gran % 0 Nucleated RBC % 0 Sodium 142 Potassium 4.8 D Chloride 106 Carbon Dioxide 27.0 Anion Gap 9 BUN 43 H Creatinine 2.4 H Estim Creat Clear Calc 14.5 L eGFR 19 L BUN/Creatinine Ratio 18 Glucose 99 Calculated Osmolality 293 Calcium 8.7 Corrected Calcium 8.7 Phosphorus 4.2 Magnesium 2.3 Total Bilirubin 0.9 AST 45 H ALT 30 Alkaline Phosphatase 123 H Total Protein 6.9 Albumin 4.1 Globulin 2.8 Albumin/Globulin Ratio 1.5 Ur Random Creatinine 39 Ur Random Microalbumin 44 U Creat (Microalbumin) 39 Microalb/Creat Ratio 113 H Assessment & Plan A&P Narrative ] 83-year-old female with a past medical history of paroxysmal atrial fibrillation, CKD stage IV, essential hypertension, hyperlipidemia, hypothyroidism, osteoarthritis, moderate PAH was initially seen by me in the office yesterday evening around 4 PM and the EKG showed atrial flutter with RVR in 2 is to 1 block at 150 bpm. Patient was sent to the ER and recommended admission for CHEVY with cardioversion. Patient presented to the clinic yesterday and EKG in the office showed atrial flutter with RVR at 150 bpm with trace to 1 block. Patient denied any kind of palpitations or any symptoms that she was feeling fine patient did not have any significant shortness of breath or orthopnea or PND or dizziness or syncope or fall or palpitations or chest pain or chest pressure. I recommended that admission for further evaluation with labs and CHEVY with cardioversion as it is unclear how long the patient has been in atrial fibrillation/flutter and could not assess the complaints of anticoagulation or Eliquis intake as it was her first visit. In the emergency department initial heart rate was again 147 bpm with BP of 1 30-1 open send 5 mmHg saturation was 94% on room air afebrile EKG showed again atrial flutter with RVR at 150 bpm initial labs done in the emergency department showed sodium of 140 potassium of 4.1, BUN of 50 and creatinine of 3.0 baseline creatinine is around 2.0 and baseline BUN around 30-35 and creatinine clearance of 12, glucose of 171, AST was 50, alk phos was 146 rest of the LFTs normal. Initial troponin was 0.77 and repeat troponin was 0.076 BNP is 483 previous BNP was 1232 TG 95 cholesterol 119, LDL 53, HDL 47, TSH 3.64 and free T4 1.34. Magnesium was 2.0 A1c was 5.7. Assessment and plan: 1. Atrial flutter/fibrillation with RVR 2. Acute on chronic kidney disease stage IV 3. Troponin regurgitation mostly NSTEMI type II in the setting of atrial flutter with RVR 4. Essential hypertension 5. Hyperlipidemia 6. Hypothyroidism 7. Osteoarthritis 8. Moderate PAH on the previous echo in 2022 9. Moderate MR 10. GERD Patient presented to the clinic yesterday for the initial consultation and was found to have atrial flutter with RVR and was sent to the emergency department for admission for CHEVY with cardioversion. Patient at home on metoprolol tartrate 100 mg twice daily and Eliquis 2.5 mg twice daily. Recommended diltiazem IV bolus along with drip for only rate control and no amiodarone for now. Patient/Vascor is elevated and is on Eliquis 2.5 mg twice daily which we recommend to continue To keep potassium greater than 4 and magnesium greater than 2.0 In addition patient was recommended to change from metoprolol tartrate to metoprolol XL and will start patient on 50 mg twice daily and will continue to uptitrate based on the heart rate as well as blood pressure. Her atrial flutter with RVR is mostly secondary to the acute on chronic kidney disease from possible dehydration. Agree with gentle IV hydration for now and continue to monitor the renal function Patient kept n.p.o. overnight for CHEVY with cardioversion today. Patient denies any kind of swallowing problems or any kind of esophageal interventions or previous surgeries. Patient denies any kind of gastric ulcers bleeding and any other hematemesis or hematochezia. Patient denies any issues with anesthesia previously. Patient explained all the risks, benefits and alternatives of CHEVY including the risk of perforation, bleeding, respiratory failure secondary to sedation, injury to teeth gums esophagus and stomach. Patient understands all risks and benefits and provided consent for the procedure. Acute on chronic kidney disease stage IV BUN was 51 and creatinine was 3.0. Baseline creatinine is 2.0 and BUN is around 30-35. Oral. Does not appear to be much fluid overloaded chest x-ray does show mild vascular congestion but BNP was 483 and previous BNP is was 1200 and the rest of all the BNP's were previously higher. Agree with gentle IV hydration for now and continue to monitor renal function Patient will need to be on Lasix. Recommend 40 mg once daily orally at the time of discharge TG 95 cholesterol 119, LDL 53, HDL 47, TSH 3.64 and free T4 1.34. A1c was 5.7. Continue on Lipitor for hyperlipidemia. Mildly elevated troponin 0.076 and 0.077 and mostly secondary to NSTEMI type II from supply/demand mismatch in the setting of atrial flutter with RVR. EKG without any acute ST-T changes and recommended to check echo for any regional wall motion abnormalities. No further troponins needed. No need of any heparin drip. Patient already on statin and beta-keila along with Eliquis. 05/14/2024 Patient appears to be having delirium at the present moment with waxing and waning of the mental status. Patient apparently received Ambien last night and appears to be slightly drowsy Patient is status post CHEVY and cardioversion on 07/13/2024. Telemetry reviewed and patient continues to be in normal sinus rhythm and heart rate is well-controlled between 50-70 bpm Recommend to continue with metoprolol XL 50 mg twice daily for rate control. Continue Eliquis 2.5 mg twice daily for anticoagulation. Recommend to hold off any Ambien or any other antipsychotics. Okay to give melatonin for sleep and start on delirium precautions for the patient. Acute kidney injury continues to improve and BUN is 43 and creatinine is 2.4 from a peak of 50 and 3.0. Continue IV hydration for now and stop at midnight today. Reevaluate renal function tomorrow. If patient's creatinine returns to normal then patient should be discharged home if you clinically stable. Management of rest of the medical conditions as per primary team and other consultants. Thank you for the consult and allowing me to participate in the care of the patient. Cardiology will continue to follow. Time Spent With Patient Time: Total time spent is greater than 50% in coordination of care (as documented) at patient's floor/unit and/or counseling patient:
[2024-07-14] MEDS: ATORVASTATIN CALCIUM 20 MG TABLET 40 MG PO (20:44)
[2024-07-14] MEDS: MELATONIN 3 MG TABLET PO (20:45)
[2024-07-15] VITALS: BP 139/74; PULSE 68; PULSE 76; RESP 10; TEMP 36.9; O2SAT 98
[2024-07-15] MEDS: SODIUM CHLORIDE 0.9% 1000 ML 1,000 ML 75 ML IV (01:00)
--- NOTE | 2024-07-15 02:38 | PC.NURSE ---
Addendum entered by Rossi Sanderson RN 07/15/24 02:40: NO NEW ORDERS GIVEN. PT RESTING WITH EYES CLOSED, RESPIRATIONS EVEN, UNLABORED. NO DISTRESS NOTED. Original Note: DR. PRIETO MADE AWARE OF LOWEST HR AT 48, SINUS.
--- NOTE | 2024-07-15 03:53 | EKG_ITS ---
[facility] Test Date: 2024-07-15 Pat Name: IVAN LOPEZ [facility] Community Resource Consultant: JIMMY : 1940 Requested By: Edson Marin Order Number: [id number] Reading MD: Edson Marin Measurements Intervals [place] Rate: 71 P: 70 NV: 174 QRS: 80 QRSD: 139 T: 46 QT: 449 QTc: 489 Interpretive Statements SINUS RHYTHM RIGHT BUNDLE BRANCH BLOCK Compared to ECG 07/13/2024 12:59:28 Sinus bradycardia no longer present T-wave abnormality no longer present Possible ischemia no longer present /store/S0/[id number]/ecg/[id number].pdf
--- NOTE | 2024-07-15 03:57 | PC.NURSE ---
DR. PRIETO NOTIFIED OF CHEST PAIN, PT IS UNABLE TO DESCRIBE CHEST PAIR NOR SEVERITY OF IT. POINTING TO SUBSTERNAL REGION. NEW ORDERS GIVEN FOR TROPONIN, EKG, AND NORCO X1.
[2024-07-15 04:00] VITALS: BP 134/78; PULSE 60; RESP 12; TEMP 37; O2SAT 97
[2024-07-15] MEDS: HYDROcodone/APAP 5/325 TABLET 1 TAB PO (04:01)
--- NOTE | 2024-07-15 04:30 | PC.NURSE ---
DR. PRIETO MADE AWARE OF EKG RESULTS.
[2024-07-15] MEDS: LEVOTHYROXINE SODIUM 100 MCG TABLET PO (05:15)
[2024-07-15 05:56] VITALS: BMI 27.0
[2024-07-15 06:14] LABS: Basophils # (Auto) 0.1 Thou/mm3 (0.0-0.2); Basophils % (Auto) 1 % (0-2.5); Eosinophils # (Auto) 0.5 Thou/mm3 (0.0-0.5); Eosinophils % (Auto) 5 % (0-10); Hematocrit 33.2 % (36.0-46.0); Hemoglobin 10.5 g/dL (12.0-16.0); Immature Granulocytes % (Auto) 1 % (0-0); Immature Granulocytes Auto 0.05 Thou/mm3 (0.00-0.00); Lymphocytes # (Auto) 1.3 Thou/mm3 (1.0-4.8); Lymphocytes % (Auto) 13 % (10-50); Mean Corpuscular HGB Conc 31.6 g/dl (31.0-37.0); Mean Corpuscular Hemoglobin 30.2 pg (25.0-35.0); Mean Corpuscular Volume 95 fL (80-100); Monocytes # (Auto) 0.8 Thou/mm3 (0.0-0.8); Monocytes % (Auto) 8 % (0-12); Neutrophils # (Auto) 7.3 Thou/mm3 (1.8-7.7); Neutrophils % (Auto) 73 % (37-80); Nucleated Red Blood Cell % 0 /100 WBC (0); Platelet Count 168 Thou/mm3 (140-440); RDW Standard Deviation 55.2 fL (36.4-46.3); Red Blood Count 3.48 Miln/mm3 (4.00-5.20); White Blood Count 10.1 Thou/mm3 (3.6-11.0)
[2024-07-15 06:34] LABS: Alanine Aminotransferase 22 U/L (10-49); Albumin, Serum 3.7 gm/dL (3.4-4.8); Albumin/Globulin Ratio 1.5 (1.2-2.2); Alkaline Phosphatase 116 U/L (46-116); Anion Gap 9 (7-16); Aspartate Amino Transferase 27 U/L (0-34); BUN/Creatinine Ratio 16 Ratio (12-20); Blood Urea Nitrogen 36 mg/dL (9-23); Calcium 8.3 mg/dL (8.3-10.6); Calcium (Corrected) 8.5 mg/dL (8.5-10.1); Carbon Dioxide 24.3 mMol/L (20.0-31.0); Chloride 107 mMol/L (98-107); Creatinine (Component) 2.2 mg/dL (0.6-1.3); Estimated Creatinine Clearance 15.7 mL/min (>60); Globulin 2.5 gm/dL (2.3-3.5); Glucose 112 mg/dL (74-106); Osmolality,Calculated 288 (275-295); Potassium 3.9 mMol/L (3.4-5.1); Sodium 140 mMol/L (136-145); Total Protein 6.2 gm/dL (5.7-8.2); Troponin I 0.045 ng/mL (0.0-0.045); eGFR 22 See Note
[2024-07-15 07:20] LABS: Magnesium 2.1 mg/dL (1.6-2.6); Phosphorous 3.4 mg/dL (2.4-5.1)
[2024-07-15 08:00] VITALS: BP 120/73; PULSE 47; PULSE 65; RESP 13; TEMP 36.3; O2SAT 100
[2024-07-15] MEDS: FAMOTIDINE INJ 10 MG/ML VIAL 2 ML 20 MG IVP (09:10)
[2024-07-15 09:11] VITALS: BP 120/73; PULSE 65
[2024-07-15] MEDS: APIXABAN 2.5 MG TABLET PO (09:11)
[2024-07-15] MEDS: POTASSIUM CHLORIDE 20 mEq TABCR PO (09:11)
[2024-07-15] MEDS: METOPROLOL SUCCINATE XL 25 MG TABCR 50 MG PO (09:11)
--- NOTE | 2024-07-15 10:12 | ESPR_ITS ---
Documentation for date of: 07/15/24 Subjective Subjective Interval history: No acute overnight events. Seen and examined with daughter and at bedside. Confusion improved this morning after holding AMBIEN, slept well with MELATONIN, ANO x 4, pleasant mood and affect. HR controlled around 65, BP 120/73, asymptomatic without chest pain or shortness of breath or dizziness. Renal function improved after fluids, CR 2.2, BUN 36, GFR 22. Remainder of CHEM panel and CBC without major changes. Recommended discharge on METOPROLOL SUCC 50 mg BID. Follow-up in office within 1 week. Exam Vital Signs Temp Pulse Resp BP Pulse Ox O2 Del Method O2 Flow Rate 97.4 F 65 13 120/73 100 Room Air 2 07/15/24 08:00 07/15/24 09:11 07/15/24 08:00 07/15/24 09:11 07/15/24 08:00 07/15/24 08:00 07/13/24 16:00 Narrative Exam GENERAL APPEARANCE: NAD, resting comfortably, pleasant mood HEENT: Normocephalic, atraumatic, extraocular movements intact NECK: Supple CARDIOVASULAR: NSR, S1, S2 heard with 2 or 6 systolic murmur heard at the apex, no rubs or gallops. LUNGS/CHEST: CTA bilaterally ABDOMEN: Soft, nontender, with normal bowel sounds. No pulsatile masses. No rebound, rigidity, or guarding. SKIN: Warm and dry without rashes NEURO: ANO x 4, no confusion. Objective Labs 07/15/24 05:42 07/15/24 05:42 Labs: Laboratory Results - last 24 hr 07/15/24 05:42 WBC 10.1 RBC 3.48 L Hgb 10.5 L Hct 33.2 L MCV 95 MCH 30.2 MCHC 31.6 RDW Std Deviation 55.2 H Plt Count 168 Neut % (Auto) 73 Lymph % (Auto) 13 [place] % (Auto) 8 Eos % (Auto) 5 Baso % (Auto) 1 Neut # (Auto) 7.3 Lymph # (Auto) 1.3 [place] # (Auto) 0.8 Eos # (Auto) 0.5 Baso # (Auto) 0.1 Immature Gran # (Auto) 0.05 H Absolute Nucleated RBC 0.00 Immature Gran % 1 H Nucleated RBC % 0 Sodium 140 Potassium 3.9 D Chloride 107 Carbon Dioxide 24.3 Anion Gap 9 BUN 36 H Creatinine 2.2 H Estim Creat Clear Calc 15.7 L eGFR 22 L BUN/Creatinine Ratio 16 Glucose 112 H Calculated Osmolality 288 Calcium 8.3 Corrected Calcium 8.5 Phosphorus 3.4 Magnesium 2.1 Total Bilirubin 1.0 AST 27 ALT 22 Alkaline Phosphatase 116 Troponin I 0.045 Total Protein 6.2 Albumin 3.7 Globulin 2.5 Albumin/Globulin Ratio 1.5 Quality Measures Quality Measures VTE prophylaxis (eliquis 2.5 ) Advance care planning discussed with:: patient Assessment & Plan Assessment Current Active Medications: Generic Name Dose Route Start Last Admin Trade Name Freq PRN Reason Stop Dose Admin Acetaminophen 650 mg 07/12/24 23:07 Acetaminophen 325 Mg Tablet PO 08/11/24 23:06 Q6HR PRN PAIN OR FEVER > 101 Apixaban 2.5 mg 07/12/24 21:15 07/15/24 09:11 Apixaban 2.5 Mg Tablet PO 08/11/24 21:14 2.5 mg BID FEMI Administration Atorvastatin Calcium 40 mg 07/13/24 21:00 07/14/24 20:44 Atorvastatin Calcium 20 Mg Tablet PO 08/12/24 20:59 40 mg HS FEMI Administration Famotidine 20 mg 07/13/24 09:00 07/15/24 09:10 Famotidine Inj 10 Mg/Ml Vial 2 Ml IVP 08/12/24 08:59 20 mg DAILY FEMI Administration Sodium Chloride 1,000 mls @ 75 mls/hr 07/13/24 08:45 07/15/24 01:00 Ns IV 08/12/24 08:44 75 mls/hr .[id number] FEMI Administration Levothyroxine Sodium 100 mcg 07/13/24 06:00 07/15/24 05:15 Levothyroxine Sodium 100 Mcg Tablet PO 08/12/24 05:59 100 mcg ACBR FEMI Administration Melatonin 3 mg 07/13/24 21:00 07/14/24 20:45 Melatonin 3 Mg Tablet PO 08/12/24 20:59 3 mg HS FEMI Administration Metoprolol Succinate 50 mg 07/13/24 09:00 07/15/24 09:11 Metoprolol Succinate Xl 25 Mg Tabcr PO 08/12/24 08:59 50 mg BID FEMI Administration Plan This is an 83-year-old female with PMHx of A-fib, moderate PAH, CKD stage IV, HTN, HLD, hypothyroidism, RA/OA. She was referred to our office by her an/sqq 89(v)15 sonar system journeyman, Dr. Amador, and was seen in office morning. During the visit, EKG showed a flutter/A-fib with RVR, HR 150. Patient was mostly asymptomatic, hemodynamically stable otherwise. We recommended admission for further management. A-fib/flutter with RVR NSTEMI type II (resolved) CHF Admitted for A-fib/flutter with RVR. Successfully cardioverted with 50 J on 07/13/2024 without complications. HR currently controlled with METOPROLOL succinate 50 mg BID, HR 65 today, BP 120/73. CHEVY showed EF 55 to 60%, normal LV/RV size/function, moderate MR, moderate to severe LA dilatation, significant left atrial and left atrial appendage smoke, no thrombus seen. ? Continue ELIQUIS ? Continue METOPROLOL XL 50 mg BID MICHAEL on CKD CKD stage IV CR 3.0 (baseline around 2). Likely she poor perfusion in setting of RVR vs dehydration. No signs of fluid overload on exam as mentions above. Renal function improved, CR 2.2 today. ? Hold LASIX for now ? Renally dose meds, avoid overdiuresis and NEPHROTOXINS ? Daily CMP HTN, HLD, hypothyroidism Currently normotensive with METOPROLOL as above TG 95, cholesterol 119, LDL 53, HDL 47. TSH WNL. ? Continue home LEVOTHYROXINE 100 mcg ? Continue current management ? Will see you in office for BP optimization Gout No signs of gout flareups ? Resume home ALLOPURINOL on discharge. Thank you for the opportunity to participate in the patient's care. Case was discussed with attending, Dr. Mello. Kenzie Hopper, DO PGYI Attending Provider Attestation/Addendum I have personally seen and examined the patient separately on the above date of service and discussed the plan of care with the resident. I reviewed the resident Dr. Kenzie Hopper consultation progress note and agree with the resident findings and plan in the note above and have also edited the documentation to reflect my findings and plan. Elijah Mello M.D. Interventional Cardiology
[2024-07-15 12:00] VITALS: BP 129/75; PULSE 60; RESP 13; TEMP 36.1; O2SAT 99
--- NOTE | 2024-07-15 13:24 | PD.HHDS ---
Planned Discharge Date 07/15/24 DS: Providers Provider Date of admission: 07/12/24 21:35 Primary care physician: Elijah Mello MD Admitting Provider: Edson Arora MD Attending Provider on Admission: Lan Campo DO Consults: 07/12/24 20:35 Consult to Cardiology Stat Comment: Consulting Provider: Elijah Mello Attending Provider on DC: Lan Campo DO Discharging Provider: Lan Campo DO Diagnosis Problem List Completed Was Problem List Reviewed/Reconciled?: Yes Hospital Course - Hospitalist Hospital Course Hospital course: Patient is an 83-year-old female with a significant past medical history of atrial fibrillation on Eliquis, CKD 3, hypertension, hypothyroidism and hyperlipidemia who presented to the ED initially at the recommendation of her pump erector helper, Dr. Sharon crawford for elective cardioversion. Patient was on metoprolol at home however still uncontrolled. Patient did not have any complaints or discomfort on arrival, she did undergo the procedure on 07/13 without complication and was recommended to continue metoprolol XL 50 mg twice daily and her Eliquis 2.5 mg twice daily which she was taken at home. The patient was given Ambien on the night of 07/13 which caused her to be encephalopathic on 07/14 and she could not be discharged however was back to her baseline on 07/15, she was stable, afebrile and tolerating p.o. intake updated discharge. Her family was at bedside, was instructed to bring the patient back to the emergency department for any worsening or persistent symptoms to include chest pain or heart palpitations. She will also need to follow-up with Dr. Sharon Barnard within 7 to 10 days of discharge as well as her primary care physician for further evaluation. All questions were answered, the family understood all discharge instructions. Time Spent with Patient Time attestation: Total time spent providing and/or coordinating discharge services: Time spent: Greater than 30 minutes Discharge Results Labs Diagrams: 07/15/24 05:42 07/15/24 05:42 Labs: Short CBC 07/15/24 Range/Units 05:42 WBC 10.1 (3.6-11.0) Thou/mm3 Hgb 10.5 L (12.0-16.0) g/dL Hct 33.2 L (36.0-46.0) % Plt Count 168 (140-440) Thou/mm3 BMP 07/15/24 05:42 Sodium 140 Potassium 3.9 D Chloride 107 Carbon Dioxide 24.3 BUN 36 H Creatinine 2.2 H Glucose 112 H Calcium 8.3 Cardiac Enzymes 07/15/24 Range/Units 05:42 Troponin I 0.045 (0.0-0.045) ng/mL Liver Function 07/15/24 Range/Units 05:42 Total Bilirubin 1.0 (0.3-1.2) mg/dL AST 27 (0-34) U/L ALT 22 (10-49) U/L Alkaline Phosphatase 116 (46-116) U/L Albumin 3.7 (3.4-4.8) gm/dL Exam Vital Signs Temp Pulse Resp BP Pulse Ox O2 Del Method O2 Flow Rate 96.9 F 60 13 129/75 99 Room Air 2 07/15/24 12:00 07/15/24 12:00 07/15/24 12:00 07/15/24 12:00 07/15/24 12:00 07/15/24 12:00 07/13/24 16:00 Discharge Plan Plan Patient Disposition: HOME (Self Care) Prescriptions/Referrals Prescriptions/Med Rec: Continued cephalexin 500 mg capsule 500 mg PO TID Qty: 21 0RF clonidine HCl 0.3 mg Tablet 0.3 mg PO BID simvastatin 40 mg Tablet 40 mg PO QPM levothyroxine 100 mcg Tablet 100 mcg PO QDAY allopurinol 300 mg Tablet 300 mg PO QDAY atenolol 50 mg Tablet 50 mg PO BID apixaban 2.5 mg tablet 2.5 mg PO BID 30 Days Qty: 60 3RF metoprolol tartrate 50 mg tablet 50 mg PO Q12H 30 Days Qty: 60 2RF furosemide [Lasix] 20 mg tablet 20 mg PO QAM Qty: 2 0RF ciprofloxacin HCl [Cipro] 500 mg tablet 500 mg PO BID Qty: 14 0RF Referrals: Elijah Mello MD [Primary Care Provider] - Patient/Caregiver Discharge Instructions Other Discharge Activity Instructions:: Please return to the emergency department for any persistent or worsening symptoms Please follow-up with your pump erector helper within 7-10 days of discharge Please follow-up with your primary care doctor within 7-10 days of discharge Education Materials: AFL/Afib Print Language: [place] Stand Alone Forms: [facility]by Award Info., Patient Portal Info Letter Discharge Order Discharge Orders: Discharge (Routine); Ordered 07/15/24 Ordered By: Lan Campo Quality Discharge Quality Measures VTE therapy
== END 2024-07-15 12:05 | disposition home or self-care (01) ==
LOC: SERX 21:00 → SERHOLD 21:48 → S2NX 23:24
PROVIDERS: Student in an Organized Health Care Education/Training Program; Admitting Provider Internal Medicine; Emergency Provider Emergency Medicine; PCP Internal Medicine Cardiovascular Disease; Visit Provider Student in an Organized Health Care Education/Training Program
PROC: 5A2204Z Restoration of Cardiac Rhythm, Single (ICD-10-PCS; CPT 93312; principal; 2024-07-13 12:00)
DX: I48.19 Other persistent atrial fibrillation (principal); I13.0 Hypertensive heart and chronic kidney disease with heart failure and stage 1 through stage 4 chronic kidney disease, or unspecified chronic kidney disease; I21.A1 Myocardial infarction type 2; N18.4 Chronic kidney disease, stage 4 (severe); N17.9 Acute kidney failure, unspecified; I48.92 Unspecified atrial flutter; E78.5 Hyperlipidemia, unspecified; E03.9 Hypothyroidism, unspecified; E11.22 Type 2 diabetes mellitus with diabetic chronic kidney disease; I50.9 Heart failure, unspecified
CPT/HCPCS: 36415; 71045; 76770; 80053; 80061; 81001; 82043; 82570; 83036; 83735; 83880; 84100; 84439; 84443; 84484; 85025; 85610; 85730; 93005; 93312; 99152; J2250; J3010; J3475; J3490; J7030; J7120; A9270

== ENCOUNTER → 2024-07-20 | Outpatient (CLI) | payer OTHER, SELFPAY ==
[2024-07-20 10:00] LABS: Basophils # (Auto) 0.1 Thou/mm3 (0.0-0.2); Basophils % (Auto) 1 % (0-2.5); Eosinophils % (Auto) 11 % (0-10); Hematocrit 37.1 % (36.0-46.0); Hemoglobin 12.2 g/dL (12.0-16.0); Immature Granulocytes % (Auto) 0 % (0-0); Immature Granulocytes Auto 0.02 Thou/mm3 (0.00-0.00); Lymphocytes % (Auto) 24 % (10-50); Mean Corpuscular HGB Conc 32.9 g/dl (31.0-37.0); Mean Corpuscular Hemoglobin 30.3 pg (25.0-35.0); Mean Corpuscular Volume 92 fL (80-100); Monocytes # (Auto) 0.6 Thou/mm3 (0.0-0.8); Monocytes % (Auto) 7 % (0-12); Neutrophils # (Auto) 4.8 Thou/mm3 (1.8-7.7); Neutrophils % (Auto) 57 % (37-80); Nucleated Red Blood Cell % 0 /100 WBC (0); Platelet Count 274 Thou/mm3 (140-440); RDW Standard Deviation 53.6 fL (36.4-46.3); Red Blood Count 4.02 Miln/mm3 (4.00-5.20); White Blood Count 8.5 Thou/mm3 (3.6-11.0)
[2024-07-20 10:10] LABS: Glucose Estimated Average 117 mg/dL (80-131); Hemoglobin A1C 5.7 % Hgb (4.8-6.0)
[2024-07-20 10:22] LABS: Parathyroid Hormone Intact 157.4 pg/ml (18.5-88.0)
[2024-07-20 10:24] LABS: Alanine Aminotransferase 24 U/L (10-49); Albumin, Serum 4.3 gm/dL (3.4-4.8); Albumin/Globulin Ratio 1.3 (1.2-2.2); Alkaline Phosphatase 145 U/L (46-116); Anion Gap 14 (7-16); Aspartate Amino Transferase 27 U/L (0-34); BUN/Creatinine Ratio 15 Ratio (12-20); Bilirubin,Total 0.7 mg/dL (0.3-1.2); Blood Urea Nitrogen 41 mg/dL (9-23); Calcium 9.1 mg/dL (8.3-10.6); Calcium (Corrected) 9.1 mg/dL (8.5-10.1); Carbon Dioxide 27.5 mMol/L (20.0-31.0); Cardiac Risk Estimate 2.5 RATIO (3.7-5.6); Chloride 101 mMol/L (98-107); Cholesterol 107 mg/dL (132-200); Creatinine (Component) 2.7 mg/dL (0.6-1.3); Free T4 (Free Thyroxine) 1.28 ng/dL (0.89-1.76); Globulin 3.3 gm/dL (2.3-3.5); Glucose 104 mg/dL (74-106); HDL Cholesterol 43 mg/dL (40-60); LDL Cholesterol,Calculated 42 mg/dL (0-130); Osmolality,Calculated 293 (275-295); Potassium 4.3 mMol/L (3.4-5.1); Sodium 142 mMol/L (136-145); Total Protein 7.6 gm/dL (5.7-8.2); Triglycerides 110 mg/dL (30-150); Uric Acid 8.3 mg/dL (3.1-7.8); eGFR 17 See Note
[2024-07-20 10:25] LABS: Vitamin B12 293 pg/mL (211-911); Vitamin D 25 Hydroxy Total 43.2 ng/mL (7.3-40.2)
== END | disposition home or self-care (01) ==
PROVIDERS: PCP Internal Medicine; Referring Provider Internal Medicine; Visit Provider Internal Medicine
DX: I12.9 Hypertensive chronic kidney disease with stage 1 through stage 4 chronic kidney disease, or unspecified chronic kidney disease (principal); N18.4 Chronic kidney disease, stage 4 (severe); E78.5 Hyperlipidemia, unspecified; E03.9 Hypothyroidism, unspecified; D51.9 Vitamin B12 deficiency anemia, unspecified; E55.9 Vitamin D deficiency, unspecified
CPT/HCPCS: 36415; 80053; 80061; 81001; 82306; 82570; 82607; 83036; 83970; 84156; 84439; 84443; 84550; 85025

== ENCOUNTER → 2024-07-24 | Outpatient (CLI) | payer OTHER, SELFPAY ==
[2024-07-24 14:46] LABS: OBS Performed By LAB; OBS QC OK? Yes
[2024-07-24 16:42] LABS: Collection Type, Urine Clean Catch
[2024-07-24 17:54] LABS: Creatinine,Random Urine 89 mg/dL (30-125); Protein Total, Random Urine 67 mg/dL (1-14)
[2024-07-24 17:59] LABS: Bacteria,Urine 2+; Bilirubin,Urine Negative (Negative); Blood,Urine Trace (Negative); Budding Yeast,Urine Present; Clarity,Urine Turbid (Clear/Hazy); Color,Urine Yellow (Lt Yel-Yel); Glucose, Urine 3+ (Negative); Ketones,Urine Negative (Negative); Leukocyte Esterase,Urine Positive (Negative); Nitrite,Urine Negative (Negative); Protein,Urine 1+ (Neg - Trace); RBC,Urine 16 /hpf (0-3); Renal Epithelial Cells,Urine < 1 /hpf (0-5); Specific Gravity,Urine 1.017 (1.001-1.035); Squamous Epithelial Cell,Urine 3 /hpf (0-5); Urobilinogen,Urine Negative mg/dL (0.0-1.0); WBC,Urine 555 /hpf (0-5)
[2024-07-24 18:18] LABS: Occult Blood, Stool Negative (Negative); Occult Blood, Stool #2 Negative (Negative); Occult Blood, Stool #3 Negative (Negative)
[2024-07-24 18:19] LABS: OBS Developer Lot # 1-24-551749
== END | disposition home or self-care (01) ==
LOC: SLDO 14:42
PROVIDERS: PCP Internal Medicine; Referring Provider Internal Medicine; Visit Provider Internal Medicine
DX: Z12.11 Encounter for screening for malignant neoplasm of colon (principal); I12.9 Hypertensive chronic kidney disease with stage 1 through stage 4 chronic kidney disease, or unspecified chronic kidney disease; N18.4 Chronic kidney disease, stage 4 (severe); E78.5 Hyperlipidemia, unspecified; E03.9 Hypothyroidism, unspecified; D51.9 Vitamin B12 deficiency anemia, unspecified; E55.9 Vitamin D deficiency, unspecified
CPT/HCPCS: 81001; 82270; 82570; 84156

== ENCOUNTER 2024-08-18 20:29 | Inpatient (IN) | payer OTHER, MEDICARE, SELFPAY ==
[2024-08-18] VITALS (24 sets, daily range): BP systolic 127–135; BP diastolic 57–80; PULSE 26–86; RESP 10–25; TEMP 36.4–37.2; O2SAT 83–100; BMI 26.4
[2024-08-18] MEDS: ATROPINE SULF INJ 0.1 MG/ML SYR 10 ML 1 MG IV (20:44)
--- NOTE | 2024-08-18 20:45 | PC.NURSE ---
PATIENT WAS PLACED ON CARDIAC PADS FOR PACING [address] MIRANDA.
--- NOTE | 2024-08-18 21:20 | PD.EDARRY ---
ED Arrhythmia Palp. RME/HPI General Chief Complaint: Arrhythmia/Palpitations Stated Complaint: Bradycardia Time Seen by Provider: 08/18/24 20:32 Arrival date/time: 08/18/24 20:29 RME / HPI RME / HPI narrative: DR EL MAIN ED EVALUATION: 83 y/o female presents to ED BIBA from home c/o generalized weakness, dizziness, and low heart rate in the 20's x just RE RECORDING MIXER. Patient's daughter checked heart rate and called EMS. Patient was recently placed on 11 new medications. Patient denies chest pain, nausea, or any other associated symptoms or aggravating factors. No modifying factors, no radiation, no migration. No pain reported overall. Related Data Home Medications ?Medication ?Instructions ?Recorded ?Confirmed allopurinol 300 mg tablet 300 mg PO QDAY 12/26/22 12/26/22 atenolol 50 mg tablet 50 mg PO BID 12/26/22 12/26/22 clonidine HCl 0.3 mg tablet 0.3 mg PO BID 12/26/22 12/26/22 levothyroxine 100 mcg tablet 100 mcg PO QDAY 12/26/22 12/26/22 simvastatin 40 mg tablet 40 mg PO QPM 12/26/22 12/26/22 Previous Rx's ?Medication ?Instructions ?Recorded apixaban 2.5 mg tablet 2.5 mg PO BID 1 month #60 tabs 12/30/22 metoprolol tartrate 50 mg tablet 50 mg PO Q12H 1 month #60 tabs 12/30/22 cephalexin 500 mg capsule 500 mg PO TID #21 caps 05/21/23 ciprofloxacin HCl 500 mg tablet 500 mg PO BID #14 tabs 05/23/24 (Cipro) furosemide 20 mg tablet (Lasix) 20 mg PO QAM #2 tabs 05/23/24 Allergies Allergy/AdvReac Type Severity Reaction Status Date / Time No Known Allergies Allergy Verified 08/18/24 20:38 Review of Systems Review of Systems Systems Reviewed: All systems reviewed, normal except as documented Past Medical History Past Medical History NEUROLOGIC: Positive Neurological Disorders CARDIAC: Positive Hypertension GENITOURINARY: Positive Renal Disease ENDOCRINE: Positive Hypothyroidism OTHER HISTORY: Positive Falls ED Exam Narrative Physical exam: GENERAL APPEARANCE: alert and oriented x 4, well-developed, well-nourished, no acute distress VITALS: All vitals were reviewed and the pulse ox is 100% on room air, which is normal according to my interpretation. HEENT: Normocephalic, atraumatic; pupils equal, round, reactive to light; EOMI; mucous membranes pink, moist; oropharynx clear NECK: Supple LUNGS: CTABL; no wheezes, no rales, no rhonchi HEART: Bradycardia, regular rhythm; normal S1, S2; no murmurs ABDOMEN: non distended; normal BS; soft, no tenderness, no guarding, no rebound; no masses, no organomegaly, no hernia BACK: no CVA tenderness EXTREMITIES: atraumatic; no edema NEUROLOGIC: awake; alert and oriented x4; cranial nerves II-XII grossly intact; no focal sensory or motor deficits PSYCHIATRIC: appropriate mood and affect SKIN: warm, dry, normal color; no rashes Course Course Course Narrative: CXR is ordered for determining the etiology of chest pain. Quality Measures none Orders Category Date Time Status EKG (ED ONLY) *Do not use* NOW Care 08/18/24 20:42 Completed IV [Insert IV] STAT Care 08/18/24 20:48 Active EKG (ED Only) Stat Exams 08/18/24 20:42 Ordered Atropine Inj SYR Med 08/18/24 20:37 Discontinued 1 mg IV X1 ONE Vital Signs Vital signs: Vital Signs Pulse Rate 28 L 08/18/24 20:31 Respiratory Rate 12 08/18/24 20:31 Pulse Oximetry (%) 100 08/18/24 20:31 Oxygen Delivery Method Room Air 08/18/24 20:31 Arrhythmia/Palpitations MDM Narrative MDM Narrative:: Scribe Attestation: Keisha Ha, nelly scribing for and in the presence of Dr. El. Provider Notation: Although this document has been carefully reviewed, there may still be some phonetic and other typographical errors.? These errors are purely grammatical due to imperfections in the software program and should not be construed in any way to? compromise the substance of the patient's medical care during this visit. Patient data External records reviewed:: [facility] previous records (Reviewed prior ED records from 05/23/24. Patient was seen for Acute UTI.) and EMS form Clinical information provided by:: patient and EMS Social determinants that could affect healthcare access:: none Patient has the following chronic illnesses:: Hypertension, Renal Disease, Hypothyroidism How is presenting disease/condition affected by chronic disease/condition?: exacerbated by Evaluation data The following diagnostics were reviewed and interpreted by me:: lab results, radiology exam(s) and EKG tracing(s) (EKG manual reading, my interpretation: sinus rhythm, rate: 27 bpm, bradycardia, unknown pacemaker, right BBB.) Lab and/or radiology exams considered but not ordered:: None Interpretation Summary: RADIOLOGY Chest X-Ray: Patient: IVAN LOPEZ [facility]. Record#: [id number] Birthdate: 1940 Age/Sex: 83 / F Location: [facility] Attending Dr: Ordering Physician: Carolina El MD Date of Service: 08/18/24 Procedure(s): XR chest 1V portable Accession Number(s): [id number] cc: Codey Matias MD; Carolina El MD~ Examination: AP chest single view Technique one AP portable semiupright chest single view Date and time: August 18, 2024 2130 hours INDICATIONS: Chest pain and shortness of breath today. FINDINGS: No significant cardiac enlargement Mild elevation right hemidiaphragm No lobar pneumonia or pulmonary edema Low position of the right humeral head head relative to the bony glenoid fossa, clinical correlation advised IMPRESSION: No pneumonia or pulmonary edema IMPRESSION: Low position of the right humeral head relative to the bony glenoid fossa, which may be a chronic condition, clinical correlation advised Dictated By: Codey Matias MD Signed By: <Electronically signed by Codey Matias MD in OV> 08/18/24 2205 Medications / Prescriptions Medications or Prescriptions considered but not ordered:: None Medication administrations:: Medication Administration History Discontinued Medications Atropine Sulfate (Atropine Sulf Inj 0.1 Mg/Ml Syr 10 Ml) 1 mg IV X1 ONE Stop: 08/18/24 20:38 Last Admin: 08/18/24 20:44 Dose: 0.5 mg Documented By: POONAM Comments: PER DR. EL ONLY GIVE 0.5MG. Consultations Consultation(s) initiated? (list below): Yes Consultation #1 (Physician, Specialty, Details): Discussed with Dr. Dunn for admission. Reviewed the patient?s HPI, PMHx, lab and/or radiology results. Discussed treatment plan. Will accept patient for admission. Time: 22:51 Consultation #2 (Physician, Specialty, Details): Attempted to call Dr. Mandujano for consult, but he did not answer. Umm tempt to contact via other methods. Time: 22:56 Consultation #3 (Physician, Specialty, Details): Discussed with Dr. Mandujano for consult. Reviewed the patient?s HPI, PMHx, lab and/or radiology results. Treatment plan was discussed. Time: 23:12 Diagnosis Differential diagnosis arrhythmia/palpitations: palpitations, artial fibrillation, artial flutter, ventricular premature beats and WPW Most likely diagnosis given after review of the tests above:: Bradycardia Admission Indicated Admission indicated?: indicated Explain why admission is indicated or not indicated:: Bradycardia Admission Request Was there a request for admission?: Yes Admission Attestation Admission request attestation: Discussed case with [] from Hospitalist service regarding admission. Discussed patients ED course, exam findings, labs, and radiology results. The Hospitalist [agrees,declines] to accept the patient for admission. Disposition Plan Disposition Plan: Admit Critical Care Time Critical Care Time Critical Care Time: Yes Total Critical Care Time (min.): 45 Attestation: The high probability of sudden, clinically significant deterioration in the patient?s condition required the highest level of my preparedness to intervene urgently. The services I provided to this patient were to treat and/or prevent clinically significant deterioration. Services included the following: chart data review, reviewing nursing notes and/or old charts, documentation time, absence management consultant collaboration regarding findings and treatment options, medication orders and management, direct patient care, vital sign assessments and ordering, interpreting and reviewing diagnostic studies and lab tests. Aggregate critical care time includes only time during which I was engaged in work directly related to the patient?s care, as described above, whether at bedside or elsewhere in the Emergency Department. It did not include time spent performing other reported procedures or the services of residents, students, nurses or physician assistants. Discharge Plan Plan Patient Disposition: Admit Acute Care w/in Hospital Prescriptions/Referrals Prescriptions/Med Rec: No Action cephalexin 500 mg capsule 500 mg PO TID Qty: 21 0RF clonidine HCl 0.3 mg Tablet 0.3 mg PO BID simvastatin 40 mg Tablet 40 mg PO QPM levothyroxine 100 mcg Tablet 100 mcg PO QDAY allopurinol 300 mg Tablet 300 mg PO QDAY atenolol 50 mg Tablet 50 mg PO BID apixaban 2.5 mg tablet 2.5 mg PO BID 30 Days Qty: 60 3RF metoprolol tartrate 50 mg tablet 50 mg PO Q12H 30 Days Qty: 60 2RF furosemide [Lasix] 20 mg tablet 20 mg PO QAM Qty: 2 0RF ciprofloxacin HCl [Cipro] 500 mg tablet 500 mg PO BID Qty: 14 0RF Problem List Clinical Impression: Bradycardia Patient/Caregiver Discharge Instructions Print Language: Lithuanian Stand Alone Forms: Darby Award Info., Patient Portal Info Letter
[2024-08-18 21:54] LABS: Basophils # (Auto) 0.1 Thou/mm3 (0.0-0.2); Basophils % (Auto) 1 % (0-2.5); Eosinophils # (Auto) 0.5 Thou/mm3 (0.0-0.5); Eosinophils % (Auto) 5 % (0-10); Hematocrit 33.3 % (36.0-46.0); Hemoglobin 10.9 g/dL (12.0-16.0); Immature Granulocytes % (Auto) 0 % (0-0); Immature Granulocytes Auto 0.04 Thou/mm3 (0.00-0.00); Lymphocytes # (Auto) 2.5 Thou/mm3 (1.0-4.8); Lymphocytes % (Auto) 27 % (10-50); Mean Corpuscular HGB Conc 32.7 g/dl (31.0-37.0); Mean Corpuscular Hemoglobin 30.4 pg (25.0-35.0); Mean Corpuscular Volume 93 fL (80-100); Monocytes # (Auto) 0.6 Thou/mm3 (0.0-0.8); Monocytes % (Auto) 7 % (0-12); Neutrophils # (Auto) 5.5 Thou/mm3 (1.8-7.7); Neutrophils % (Auto) 60 % (37-80); Nucleated Red Blood Cell % 0 /100 WBC (0); Platelet Count 156 Thou/mm3 (140-440); Red Blood Count 3.59 Miln/mm3 (4.00-5.20); White Blood Count 9.1 Thou/mm3 (3.6-11.0)
[2024-08-18 22:15] LABS: B-Type Natriuretic Peptide 272 pg/mL (0-100)
[2024-08-18 22:23] LABS: Prothrombin Time 11.4 Seconds (9.0-12.2)
[2024-08-18 22:24] LABS: Anion Gap 14 (7-16); Carbon Dioxide 24.2 mMol/L (20.0-31.0); Chloride 103 mMol/L (98-107); Potassium 4.5 mMol/L (3.4-5.1); Sodium 141 mMol/L (136-145)
[2024-08-18 22:25] LABS: Alanine Aminotransferase 55 U/L (10-49); Albumin, Serum 4.1 gm/dL (3.4-4.8); Albumin/Globulin Ratio 1.5 (1.2-2.2); Alkaline Phosphatase 95 U/L (46-116); Aspartate Amino Transferase 69 U/L (0-34); BUN/Creatinine Ratio 13 Ratio (12-20); Bilirubin,Total 0.4 mg/dL (0.3-1.2); Blood Urea Nitrogen 62 mg/dL (9-23); Calcium 8.9 mg/dL (8.3-10.6); Calcium (Corrected) 8.9 mg/dL (8.5-10.1); Creatinine (Component) 4.8 mg/dL (0.6-1.3); Estimated Creatinine Clearance 6.8 mL/min (>60); Globulin 2.7 gm/dL (2.3-3.5); Glucose 116 mg/dL (74-106); Lipase 55 U/L (12-53); Magnesium 2.2 mg/dL (1.6-2.6); Osmolality,Calculated 299 (275-295); Total Protein 6.8 gm/dL (5.7-8.2); eGFR 8 See Note
[2024-08-18 22:29] LABS: Troponin I 0.046 ng/mL (0.0-0.045)
[2024-08-18] MEDS: GLUCAGON INJ 1 MG VIAL IVP (23:08)
[2024-08-18] MEDS: ONDANSETRON INJ 2 MG/ML INJ 2 ML 4 MG IVP (23:09)
[2024-08-19] VITALS (85 sets, daily range): BP systolic 0–197; BP diastolic 0–167; PULSE 29–87; RESP 7–99; TEMP 36.3–37; O2SAT 86–100
[2024-08-19] MEDS: GLUCAGON INJ 1 MG VIAL 5 MG IVP (00:14)
[2024-08-19] MEDS: ATROPINE SULF INJ 0.1 MG/ML SYR 10 ML 1 MG IVP (00:57)
[2024-08-19] MEDS: SODIUM CHLORIDE 0.9% 1000 ML 1,000 ML 999 ML IV (01:00)
--- NOTE | 2024-08-19 01:14 | PC.NURSE ---
@0055: PT BP 80/[address] BRITO AT BEDSIDE AND VERBAL ORDER TO GIVEN TO ADMIN ATROPINE 1MG. PT CARE ONGOING. @0115:DR. BRITO AT BEDSIDE DOING CARDIAC US ON PT. PT APPEARS TO BE TOLERATING WELL. PT A/OX3, GCS 15.
--- NOTE | 2024-08-19 01:41 | ESHP_ITS ---
Documentation for date of: 08/19/24 [facility] History of Present Illness Chief complaint: Weakness, dizziness History of present illness: 83-year-old female with a past medical history of atrial fibrillation/a flutter with RVR on Eliquis and metoprolol at home, CKD stage IV, hypertension, hypothyroidism and hyperlipidemia presented to the ED on 08/18 with episode of generalized weakness, dizziness and heart rate of 20s. Of note, patient was recently discharged from the hospital on 07/15 after she was admitted for elective cardioversion. Patient denies having any chest pain, nausea, shortness of breath at this time. Patient's daughter is bedside and provides some history regarding the patient's status. In the ED, patient presented to us mildly hypertensive 135/57, bradycardia with heart rate of 28, respiratory of 12, afebrile satting 100 on room air. Pertinent lab findings included hemoglobin 10.9 MCV 93, platelet 136, BUN 62, creatinine 4.8, EGFR of 8, lactic acid 1.1, troponin 0.046, BNP of 272, lipase of 55 and chest x-ray showed low position of the right humeral head but no pneumonia or pulmonary edema. Patient was given atropine 1 mg x 2 and glucagon secondary to suspicion of beta-keila toxicity; however, patient's status did not improve that she required ICU admission for IV dopamine. Patient's blood pressure continued to soften at which point decision was made to insert central line in the right IJ along with right femoral arterial line. Upon completion of the procedures patient's blood pressure improved; however, patient's urine output has been minimal. Will attempt IV fluid resuscitation and monitor for improvement in kidney function. Cardiology has been consulted and are aware of the patient's status. Past medical history: Stated above Past surgical history: Home medications: Metoprolol succinate 100 mg twice daily, amiodarone 200 mg twice daily, furosemide 40 mg daily, Eliquis 2.5 mg daily, Jardiance, losartan 50 mg daily, allopurinol, levothyroxine 112 mcg daily, calcitriol, simvastatin 40 mg daily. Review of Systems Review of Systems Narrative Review of Systems: General: Denies fevers or chills HEENT: Denies congestion or sore throat Heart: Denies chest pain or palpitations Lungs: Denies shortness of breath or cough Abdomen: Denies diarrhea, nausea, vomiting, constipation, bright red blood per rectum or melena Genitourinary: Denies frequency, urgency, dysuria, or hematuria Musculoskeletal: Denies joint pain, denies muscular pain Neurology: Denies any numbness, tingling Review of systems otherwise negative except what is mentioned above. Past Medical History Past Medical History NEUROLOGIC: Positive Neurological Disorders CARDIAC: Positive Congestive Heart Failure and Hypertension RESPIRATORY: Negative Chronic Obstructive Pulmonary Disease (COPD) GENITOURINARY: Positive Renal Disease ENDOCRINE: Positive Hypothyroidism; Negative Diabetes Mellitus Type 1 or Diabetes Mellitus Type 2 OTHER HISTORY: Positive Falls; Negative MRSA Social History SMOKING STATUS: Never smoker Exam Vital Signs Temp Pulse Resp BP Pulse Ox O2 Del Method 97.9 F 70 22 H 112/60 97 Room Air 08/19/24 00:55 08/19/24 01:31 08/19/24 01:31 08/19/24 01:09 08/19/24 01:09 08/19/24 01:09 Narrative Exam General: AOx3, cooperative, but patient later became confused during ICU stay Skin: Intact, no cyanosis or edema noted. HEENT: Atraumatic/normocephalic, SUGEY, neck supple Heart: RRR, S1 and S2 without clicks or murmurs, weak feeble pulse. Lungs: Clear on auscultation bilaterally, no difficulty breathing Abdomen: Soft, nontender. Bowel sounds present . Vascular: Peripheral pulses palpable Neuro: No focal neurological deficits noted. Results: Labs 08/19/24 04:20 08/19/24 04:20 Labs: Short CBC 08/18/24 Range/Units 21:47 WBC 9.1 (3.6-11.0) Thou/mm3 Hgb 10.9 L (12.0-16.0) g/dL Hct 33.3 L (36.0-46.0) % Plt Count 156 D (140-440) Thou/mm3 BMP 08/18/24 21:47 Sodium 141 Potassium 4.5 Chloride 103 Carbon Dioxide 24.2 BUN 62 H Creatinine 4.8 H* Glucose 116 H Calcium 8.9 Cardiac Enzymes 08/18/24 Range/Units 21:47 Troponin I 0.046 H* (0.0-0.045) ng/mL Liver Function 08/18/24 Range/Units 21:47 Total Bilirubin 0.4 (0.3-1.2) mg/dL AST 69 H (0-34) U/L ALT 55 H (10-49) U/L Alkaline Phosphatase 95 (46-116) U/L Albumin 4.1 (3.4-4.8) gm/dL Quality Measures Quality Measures none Advance care planning discussed with:: child Medications Home Medications and Allergies Home Medications ?Medication ?Instructions ?Recorded ?Confirmed ?Type allopurinol 300 mg tablet 300 mg PO QDAY 12/26/2212/07 History atenolol 50 mg tablet 50 mg PO BID 12/26/22 History clonidine HCl 0.3 mg tablet 0.3 mg PO BID 12/26/22 History levothyroxine 100 mcg tablet 100 mcg PO QDAY 12/26/22 12/26/22 History simvastatin 40 mg tablet 40 mg PO QPM 12/26/22 History amiodarone 200 mg tablet 200 mg PO BID 08/19/2408/19 History furosemide 40 mg tablet 40 mg PO DAILY 08/19/2408/06 History metoprolol tartrate 100 mg tablet 100 mg PO BID 08/19/24 History Allergies Allergy/AdvReac Type Severity Reaction Status Date / Time No Known Allergies Allergy Verified 08/18/24 20:38 Visit Medications Acetaminophen (Acetaminophen 325 Mg Tablet) 650 mg PO Q6H PRN PRN Reason: PAIN OR FEVER > 101 Stop: 09/18/24 00:04 Apixaban (Apixaban 2.5 Mg Tablet) 2.5 mg PO BID FEMI Stop: 09/18/24 08:59 Atropine Sulfate (Atropine Sulf Inj 0.1 Mg/Ml Syr 10 Ml) 1 mg IVP Q5MIN PRN PRN Reason: BRADYCARDIA Stop: 09/18/24 00:13 Last Admin: 08/19/24 00:57 Dose: 1 mg Dextrose (Dextrose 50%-Water Inj 50 Ml Syringe) 25 ml IV Q15MIN PRN PRN Reason: BG 50-70 responsive npo pt Stop: 09/18/24 00:09 Dextrose (Dextrose 50%-Water Inj 50 Ml Syringe) 50 ml IV Q15MIN PRN PRN Reason: BG <50 OR BG <70 & pt unresponsive Stop: 09/18/24 00:09 Glucagon (Glucagon Inj 1 Mg Vial) 1 mg IM Q15MIN PRN PRN Reason: BG <70, and no IV access Sodium Chloride (Ns) 1,000 mls @ 999 mls/hr IV .Q1H1M ONE Stop: 08/19/24 02:30 Insulin Human Lispro (Insulin Lispro (Admelog) 1 Unit/0.01 Ml Unit) 0 unit SC AC FEMI; Protocol Stop: 09/18/24 07:29 Levothyroxine Sodium (Levothyroxine Sodium 112 Mcg Tablet) 112 mcg PO [facility] Stop: 09/18/24 05:59 Ondansetron HCl (Ondansetron Inj 2 Mg/Ml Inj 2 Ml) 4 mg IV Q6H PRN; Protocol PRN Reason: NAUSEA OR VOMITING Stop: 09/18/24 00:04 Pantoprazole Sodium (Pantoprazole Inj 40 Mg Vial) 40 mg IVP QDAY FEMI Stop: 09/18/24 08:59 Sennosides (Senna Tablet) 2 tab PO BID PRN; Protocol PRN Reason: CONSTIPATION Stop: 09/18/24 00:04 Discontinued Medications Atropine Sulfate (Atropine Sulf Inj 0.1 Mg/Ml Syr 10 Ml) 1 mg IV X1 ONE Stop: 08/18/24 20:38 Last Admin: 08/18/24 20:44 Dose: 0.5 mg Glucagon (Glucagon Inj 1 Mg Vial) 1 mg IVP X1 ONE Stop: 08/18/24 23:00 Last Admin: 08/18/24 23:08 Dose: 1 mg Glucagon (Glucagon Inj 1 Mg Vial) 5 mg IVP X1 ONE Stop: 08/18/24 23:23 Last Admin: 08/19/24 00:14 Dose: 5 mg Sodium Chloride (Ns) 500 mls @ 999 mls/hr IV .Q31M ONE Stop: 08/19/24 00:45 Last Admin: 08/19/24 01:30 Dose: Not Given Ondansetron HCl (Ondansetron Inj 2 Mg/Ml Inj 2 Ml) 4 mg IVP X1 ONE; Protocol Stop: 08/18/24 23:00 Last Admin: 08/18/24 23:09 Dose: 4 mg Assessment & Plan Plan Patient is an 83-year-old female, past medical history of A-fib RVR, CKD, hypertension, CHF and hypothyroidism, was admitted to the hospital for symptomatic bradycardia. 1.NEURO: #Acute delirium Patient was alert and oriented x 3 during initial evaluation in the ER, but later after transferring to ICU, patient became delirious had confused speech, no focal neurological deficit noted, moving all 4 extremities, less likely stroke. Likely acute delirium due to current hospitalization. ? Continue to monitor for worsening of neurological symptoms ? Follow CT head without contrast 2.CVS: #Symptomatic bradycardia #History of A-fib RVR Of note patient had a prior presentation with A-fib RVR requiring DC cardioversion and CHEVY last month. Patient home medications include metoprolol succinate 100 mg twice daily and amiodarone 200 mg twice daily along with Eliquis. Patient had weak feeble pulse, monitoring and evaluation advisor unable to trace blood pressure, on manual measurement initially systolic BP in the 140s, but but later unable to get a reliable blood pressure measurement even on manual BP measurement. Pacing pads were placed, but despite monitor showing capture of paced rhythm at 70/min, patient's pulse was still in the high 20s. Patient was given atropine 0.5 mg initially, with no improvement, given glucagon 1 mg initially, later 5 mg but no response to glucagon. Repeat atropine 1 mg was given which showed slight improvement in heart rate, heart rate improved to 32 bpm. Patient was admitted to ICU, unable to get reliable blood pressure, decision was made to start dopamine drip, arterial line for accurate blood pressure measurement and right IJ central line placement for CVP measurement, as patient has history of heart failure. Bedside ultrasound for IVC 2.1 cm. ? Hold metoprolol and amiodarone ? Continue dopamine drip, target MAP more than 65 3.PULM: Stable 4.GI: #Nausea/vomiting Patient became nauseous after receiving glucagon, had 1 episode of vomiting, received Zofran ?Zofran for nausea 5.Renal: Patient has baseline CKD, now presented with acute on chronic kidney injury, likely secondary to bradycardia and hypotension causing prerenal MICHAEL. ? IV fluid bolus given, strict input and output monitoring, avoid nephrotoxic drugs ? Consulted strike operations officer Dr Amador, appreciate recommendations 6.ENDOCRINE: #History of hypothyroidism Continue levothyroxine #History of diabetes mellitus ? Insulin sliding scale 7.Infectious: Stable 8.Heme: Stable Disposition: ICU for bradycardia DVT prophylaxis: Heparin subcut GI prophylaxis: Protonix Diet: N.p.o. Lines: PIV, femoral art line, right IJ central CODE STATUS: Full Patient case discussed with attending Dr. Mona Raymond PGY2 Attending Provider Attestation/Addendum I reviewed labs, imaging, EKG, home medications and prior available records. Face to face evaluation was performed by me. I have personally examined the patient and discussed assessment and plan with the IM team. I reviewed the resident note and agree with the plan with exceptions as below. Nausea without vomiting Symptomatic bradycardia History of atrial fibrillation Hypothyroidism Status post temporary pacing Started dopamine drip Gave IV glucagon Stop metoprolol, clonidine, and amiodarone Consulted cardiology Critical care time is 65 minutes
[2024-08-19 02:17] LABS: Lactate (Lactic Acid) 1.1 mMol/L (0.4-2.0)
[2024-08-19] MEDS: DOPamine/D5w 400 MG IVPB 400 MG/250 ML BAG 11.141 MG IV (03:00)
[2024-08-19] MEDS: MIDAZOLAM INJ 1 MG/ML VIAL 2 ML IVP (03:22)
[2024-08-19] MEDS: MIDAZOLAM INJ 1 MG/ML VIAL 2 ML 0.5 MG IVP (03:39)
--- NOTE | 2024-08-19 04:01 | XR_ITS ---
Examination: AP chest single view Technique one AP portable semiupright chest single view Date and time: August 19, 2024 0417 hours Comparison August 18, 2024 INDICATIONS: Post central line placement FINDINGS: Right internal jugular central line tip right atrium, no pneumothorax Mild enlargement cardiac contour Moderate vascular congestion. No lobar pneumonia. Prominent osteopenia IMPRESSION: Interval right internal jugular central line tip, right atrium, no pneumothorax
--- NOTE | 2024-08-19 04:03 | ESOP_ITS ---
Procedures Procedure Date / Time 08/19/24 0403 Central Line Placement Right IJ: Indication(s): other (Unable to obtain BP readings) Informed consent obtained: from patient, obtained from surrogate decision maker, implied and procedure done urgently Time out done, and the following verified: correct patient, side and site, procedure, patient position and implants and/or equipment Patient placed on monitor/pulse ox: Yes Hand Hygiene: scrub, soap & water, alcohol-based hand rub and other Max Sterile Barrier Techniques used: cap, mask, sterile gown, sterile gloves, sterile full body drape and other Central line prep: Chlorhexidine scrub and sterile drapes applied Local anesthesia used: lidocaine 1% Amount of anesthesia used (mL): 10 Ultrasound used for placement: Yes Sterile Technique if Ultrasound used, including sterile gel: yes Central line lumen inserted: triple Post procedure: sutured in place, good blood return, all ports aspirated, flushed, capped and sterile dressing applied Post procedure x-ray: tip of catheter in good position Patient tolerated procedure: well EBL(ml): 10 Complications: none Procedure comment: Prior to starting procedure, U/S was used to visualize vessel. Patient neck area sanitized with chlorhexidine scrub. Proper gown and sterile glove worn and procedure started. Utitized Seldinger technique to access the Right IJ. U/S was used to confirm placement of wire. All three ports were aspirated and flushed. Patient tolerated the procedure well without any immediate complications. Post- procedure chest x-ray ordered to assess catheter tip placement. Procedure confirmed by attending Dr. El. Davion Whitney DO PGY-1 Internal Medicine - [facility]
[2024-08-19 04:21] LABS: Base Excess -1 (-3-3); HCO3 24 mEq/L (20-26); Inspired Oxygen, FIO2 21 %; O2 Saturation 95 % (91-98); PCO2 39 mmHg (32.0-48.0); PO2 69 mmHg (83-108); pH, Arterial 7.39 (7.35-7.45)
[2024-08-19 04:22] LABS: Allen Test Not Performed; Puncture Site Arterial Line
[2024-08-19 04:46] LABS: Basophils # (Auto) 0.1 Thou/mm3 (0.0-0.2); Basophils % (Auto) 1 % (0-2.5); Eosinophils # (Auto) 0.2 Thou/mm3 (0.0-0.5); Eosinophils % (Auto) 2 % (0-10); Hematocrit 34.1 % (36.0-46.0); Hemoglobin 11.1 g/dL (12.0-16.0); Immature Granulocytes % (Auto) 1 % (0-0); Immature Granulocytes Auto 0.05 Thou/mm3 (0.00-0.00); Lymphocytes # (Auto) 1.9 Thou/mm3 (1.0-4.8); Lymphocytes % (Auto) 21 % (10-50); Mean Corpuscular HGB Conc 32.6 g/dl (31.0-37.0); Mean Corpuscular Hemoglobin 30.6 pg (25.0-35.0); Mean Corpuscular Volume 94 fL (80-100); Monocytes # (Auto) 0.4 Thou/mm3 (0.0-0.8); Monocytes % (Auto) 4 % (0-12); Neutrophils # (Auto) 6.6 Thou/mm3 (1.8-7.7); Neutrophils % (Auto) 72 % (37-80); Nucleated Red Blood Cell % 0 /100 WBC (0); Platelet Count 189 Thou/mm3 (140-440); Red Blood Count 3.63 Miln/mm3 (4.00-5.20); White Blood Count 9.1 Thou/mm3 (3.6-11.0)
[2024-08-19 05:05] LABS: INR 1.1 (0.9-1.3); Prothrombin Time 11.5 Seconds (9.0-12.2)
[2024-08-19 05:27] LABS: Albumin, Serum 4.2 gm/dL (3.4-4.8); Anion Gap 13 (7-16); BUN/Creatinine Ratio 16 Ratio (12-20); Blood Urea Nitrogen 72 mg/dL (9-23); Calcium 8.3 mg/dL (8.3-10.6); Calcium (Corrected) 8.3 mg/dL (8.5-10.1); Carbon Dioxide 23.6 mMol/L (20.0-31.0); Chloride 106 mMol/L (98-107); Creatinine (Component) 4.5 mg/dL (0.6-1.3); Estimated Creatinine Clearance 7.6 mL/min (>60); Glucose 128 mg/dL (74-106); Osmolality,Calculated 308 (275-295); Phosphorous 6.1 mg/dL (2.4-5.1); Potassium 3.9 mMol/L (3.4-5.1); Sodium 143 mMol/L (136-145); eGFR 9 See Note
[2024-08-19] MEDS: LEVOTHYROXINE SODIUM 112 MCG TABLET PO (05:58)
[2024-08-19 08:26] LABS: Alanine Aminotransferase 87 U/L (10-49); Alkaline Phosphatase 103 U/L (46-116); Anion Gap 15 (7-16); Aspartate Amino Transferase 110 U/L (0-34); BUN/Creatinine Ratio 14 Ratio (12-20); Bilirubin,Direct 0.3 mg/dL (0.0-0.3); Bilirubin,Total 0.7 mg/dL (0.3-1.2); Blood Urea Nitrogen 61 mg/dL (9-23); Calcium 8.4 mg/dL (8.3-10.6); Carbon Dioxide 21.7 mMol/L (20.0-31.0); Cardiac Risk Estimate 2.3 RATIO (3.7-5.6); Chloride 107 mMol/L (98-107); Cholesterol 102 mg/dL (132-200); Creatinine (Component) 4.4 mg/dL (0.6-1.3); Estimated Creatinine Clearance 7.8 mL/min (>60); Glucose 83 mg/dL (74-106); HDL Cholesterol 44 mg/dL (40-60); LDL Cholesterol,Calculated 38 mg/dL (0-130); Magnesium 2.1 mg/dL (1.6-2.6); Osmolality,Calculated 303 (275-295); Phosphorous 6.3 mg/dL (2.4-5.1); Potassium 3.8 mMol/L (3.4-5.1); Sodium 144 mMol/L (136-145); Thyroid Stimulating Hormone 5.26 uIU/mL (0.55-4.78); Total Protein 6.5 gm/dL (5.7-8.2); Triglycerides 101 mg/dL (30-150); eGFR 9 See Note
[2024-08-19 08:28] LABS: Troponin I 0.055 ng/mL (0.0-0.045)
[2024-08-19] MEDS: PANTOPRAZOLE INJ 40 MG VIAL IVP (09:14)
[2024-08-19] MEDS: SODIUM CHLORIDE 0.9% 500 ML 500 ML 999 ML IV (11:07)
--- NOTE | 2024-08-19 11:10 | ESPR_ITS ---
<Statement entered by Anders Downing MD - 08/20/24 12:27> agree with above. discussed with driver/merchandiser cumulative time spent in management is 45 minutes Documentation for date of: 08/19/24 Subjective Subjective Interval history: Ms Schultz is a 83-year-old female with a past medical history of atrial fibrillation/a flutter with RVR on Eliquis and metoprolol at home, CKD stage IV, hypertension, hypothyroidism and hyperlipidemia presented to the ED on 08/18 with episode of generalized weakness, dizziness and heart rate of 20s. Of note, patient was recently discharged from the hospital on 07/15 after she was admitted for elective cardioversion. Patient denies having any chest pain, nausea, shortness of breath at this time. Patient's daughter is bedside and provides some history regarding the patient's status. In the ED, patient presented to us mildly hypertensive 135/57, bradycardia with heart rate of 28, respiratory of 12, afebrile satting 100 on room air. Pertinent lab findings included hemoglobin 10.9 MCV 93, platelet 136, BUN 62, creatinine 4.8, EGFR of 8, lactic acid 1.1, troponin 0.046, BNP of 272, lipase of 55 and chest x-ray showed low position of the right humeral head but no pneumonia or pulmonary edema. Patient was given atropine 1 mg x 2 and glucagon secondary to suspicion of beta-keila toxicity; however, patient's status did not improve that she required ICU admission for IV dopamine. Patient's blood pressure continued to soften at which point decision was made to insert central line in the right IJ along with right femoral arterial line. Upon completion of the procedures patient's blood pressure improved; however, patient's urine output has been minimal. 08/19/2024: Patient was seen and examined at bedside this AM. Overnight patient was on Dopamine gtt, HR improved from 20s bpm junctional bradycardia around 2am to HR 40-50s bpm by 4am. Dopamine gtt was turned off around 4am. HR sustaining in the 50s. Cardiology consulted, appreciate recommendations. Will monitor in the ICU, patient will need dose adjustments for her home beta keila. Will start on dysphagia 1 diet and advance to dysphagia 2 or 3 as tolerated. Nephrology consulted for low GFR 9 and CR jump from baseline 26 to 4.5 on admission. NiCOM testing ordered top assess fluid responsiveness, showed >13% response. Will give IVF boluses and continue to re-hydrate until no response on cheetah. Cardiology to evaluate patient in the afternoon today, will follow up recommendations. Exam Vital Signs Temp Pulse Resp BP Pulse Ox O2 Del Method 97.8 F 49 L 15 173/67 H 100 Room Air 08/19/24 08:01 08/19/24 10:07 08/19/24 10:07 08/19/24 10:07 08/19/24 10:07 08/19/24 01:09 Narrative Exam Constitutional Alert, oriented x2 (baseline is x3), comfortable, UE restraints on HEENT Vision grossly intact. Patent nares. Trachea midline. Respiratory Chest normal on inspection, clear to auscultation bilaterally. Cardiovascular S1 and S2 audible, RRR, sinus bradycardia HR 48bpm. No murmurs or carotid bruit. JVD. 2+ pulses in UE, weak pulses in LE. Abdominal Soft and BS + ; non tender to palpation in all quadrants. Genitourinary No bladder tenderness, no flank pain. Normal to palpation. Musculoskeletal Extremities tone within normal limits. No LE edema. Neurological CN II - XII grossly intact. LE weakness strength 1/5, normal sensation. UE normal strength and sensation grossly intact. Skin Warm, dry and intact. No apparent lesions. Psychiatric Patient has a good affect, is cooperative. Objective Labs 08/19/24 07:03 08/19/24 10:43 Labs: Laboratory Results - last 24 hr 08/18/24 08/19/24 08/19/24 21:47 02:08 04:11 WBC 9.1 RBC 3.59 L Hgb 10.9 L Hct 33.3 L MCV 93 MCH 30.4 MCHC 32.7 RDW Std Deviation 56.0 H Plt Count 156 D Neut % (Auto) 60 Lymph % (Auto) 27 Day % (Auto) 7 Eos % (Auto) 5 Baso % (Auto) 1 Neut # (Auto) 5.5 Lymph # (Auto) 2.5 Day # (Auto) 0.6 Eos # (Auto) 0.5 Baso # (Auto) 0.1 Immature Gran # (Auto) 0.04 H Absolute Nucleated RBC 0.00 Immature Gran % 0 Nucleated RBC % 0 PT 11.4 INR 1.0 APTT 31.0 Puncture Site Arterial Line ABG pH 7.39 ABG pCO2 39 ABG pO2 69 L ABG HCO3 24 ABG O2 Saturation 95 ABG Base Excess -1 FiO2 21 Sodium 141 Potassium 4.5 Chloride 103 Carbon Dioxide 24.2 Anion Gap 14 BUN 62 H Creatinine 4.8 H* Estim Creat Clear Calc 6.8 L eGFR 8 L* BUN/Creatinine Ratio 13 Glucose 116 H Calculated Osmolality 299 H Lactic Acid 1.1 Calcium 8.9 Corrected Calcium 8.9 Phosphorus Magnesium 2.2 Total Bilirubin 0.4 Direct Bilirubin AST 69 H ALT 55 H Alkaline Phosphatase 95 Troponin I 0.046 H* B-Natriuretic Peptide 272 H Total Protein 6.8 Albumin 4.1 Globulin 2.7 Albumin/Globulin Ratio 1.5 Triglycerides Cholesterol LDL Cholesterol, Calc HDL Cholesterol Cholesterol/HDL Ratio Lipase 55 H TSH 08/19/24 08/19/24 04:20 07:03 WBC 9.1 RBC 3.63 L Hgb 11.1 L Hct 34.1 L MCV 94 MCH 30.6 MCHC 32.6 RDW Std Deviation 57.0 H Plt Count 189 D Neut % (Auto) 72 Lymph % (Auto) 21 Day % (Auto) 4 Eos % (Auto) 2 Baso % (Auto) 1 Neut # (Auto) 6.6 Lymph # (Auto) 1.9 Day # (Auto) 0.4 Eos # (Auto) 0.2 Baso # (Auto) 0.1 Immature Gran # (Auto) 0.05 H Absolute Nucleated RBC 0.00 Immature Gran % 1 H Nucleated RBC % 0 PT 11.5 INR 1.1 APTT Puncture Site ABG pH ABG pCO2 ABG pO2 ABG HCO3 ABG O2 Saturation ABG Base Excess FiO2 Sodium 143 144 Potassium 3.9 D 3.8 Chloride 106 107 Carbon Dioxide 23.6 21.7 Anion Gap 13 15 BUN 72 H 61 H Creatinine 4.5 H* 4.4 H* Estim Creat Clear Calc 7.6 L 7.8 L eGFR 9 L* 9 L* BUN/Creatinine Ratio 16 14 Glucose 128 H 83 Calculated Osmolality 308 H 303 H Lactic Acid 1.0 Calcium 8.3 8.4 Corrected Calcium 8.3 L Phosphorus 6.1 H 6.3 H Magnesium 2.1 Total Bilirubin 0.7 Direct Bilirubin 0.3 AST 110 H ALT 87 H Alkaline Phosphatase 103 Troponin I 0.055 H* B-Natriuretic Peptide Total Protein 6.5 Albumin 4.2 4.0 Globulin Albumin/Globulin Ratio Triglycerides 101 Cholesterol 102 L LDL Cholesterol, Calc 38 HDL Cholesterol 44 Cholesterol/HDL Ratio 2.3 L Lipase TSH 5.26 H ABG Interpretation ABG results: 08/19/24 04:11 ABG pH 7.39 ABG pCO2 39 ABG pO2 69 L ABG HCO3 24 ABG O2 Saturation 95 ABG Base Excess -1 Quality Measures Quality Measures none Advance care planning discussed with:: patient and child Assessment & Plan Assessment Current Active Medications: Generic Name Dose Route Start Last Admin Trade Name Freq PRN Reason Stop Dose Admin Acetaminophen 650 mg 08/19/24 00:05 Acetaminophen 325 Mg Tablet PO 09/18/24 00:04 Q6H PRN PAIN OR FEVER > 101 Apixaban 2.5 mg 08/19/24 09:00 08/19/24 09:10 Apixaban 2.5 Mg Tablet PO 09/18/24 08:59 Not Given BID FEMI Atropine Sulfate 1 mg 08/19/24 00:14 08/19/24 00:57 Atropine Sulf Inj 0.1 Mg/Ml Syr 10 Ml IVP 09/18/24 00:13 1 mg Q5MIN PRN Administration BRADYCARDIA Dextrose 25 ml 08/19/24 00:10 Dextrose 50%-Water Inj 50 Ml Syringe IV 09/18/24 00:09 Q15MIN PRN BG 50-70 responsive npo pt Dextrose 50 ml 08/19/24 00:10 Dextrose 50%-Water Inj 50 Ml Syringe IV 09/18/24 00:09 Q15MIN PRN BG <50 OR BG <70 & pt unresponsive Glucagon 1 mg 08/19/24 00:10 Glucagon Inj 1 Mg Vial IM Q15MIN PRN BG <70, and no IV access Dopamine HCl/Dextrose 400 mg in 250 mls @ 11.141 mls/hr 08/19/24 03:00 08/19/24 04:30 Intropin In D5w Ivpb IV 09/18/24 02:59 0 mcg/kg/min .[id number] FEMI 0 mls/hr Titration Protocol 5 MCG/KG/MIN Insulin Human Lispro 0 unit 08/19/24 06:00 08/19/24 05:58 Insulin Lispro (Admelog) 1 Unit/0.01 Ml Unit SC 09/18/24 05:59 Not Given Q6HR FEMI Protocol Levothyroxine Sodium 112 mcg 08/19/24 06:00 08/19/24 05:58 Levothyroxine Sodium 112 Mcg Tablet PO 09/18/24 05:59 112 mcg ACBR FEMI Administration Ondansetron HCl 4 mg 08/19/24 00:05 Ondansetron Inj 2 Mg/Ml Inj 2 Ml IV 09/18/24 00:04 Q6H PRN NAUSEA OR VOMITING Protocol Pantoprazole Sodium 40 mg 08/19/24 09:00 08/19/24 09:14 Pantoprazole Inj 40 Mg Vial IVP 09/18/24 08:59 40 mg QDAY FEMI Administration Sennosides 2 tab 08/19/24 00:05 Senna Tablet PO 09/18/24 00:04 BID PRN CONSTIPATION Protocol Plan Ms Schultz is a 83-year-old female, past medical history of A-fib RVR, CKD, hypertension, CHF and hypothyroidism, was admitted to the hospital for symptomatic bradycardia. NEURO: Hospital delirium- improving Wheelchair bound, chronic x10 years B/L LE weakness Dx: Patient was alert and oriented x 3 during initial evaluation in the ER, but later after transferring to ICU, patient became delirious had confused speech. No focal neurological deficit noted, moving all 4 extremities, less likely stroke. Likely acute delirium due to current hospitalization. Rx: - Follow up CT head without contrast for further eval - Per family, patient is better than yesterday. Likely hospital associated, will continue to re-orient. - At baseline can only transfer herself from bed to chair. - PT ordered for further assessment of function CARDIO: Symptomatic bradycardia, junctional rhythm History of A-fib w/ RVR Dx: - prior presentation with A-fib RVR requiring DC cardioversion and CHEVY last month. - home medications : metoprolol succinate 100 mg twice daily + amiodarone 200 mg twice daily + Eliquis 2.5 BID. - Follows up with Front Desk Receptionist Dr Mello outpatient - Patient had weak feeble pulses, manual BP 80s systolic on admission and pulse high 20s --> was given atropine 0.5 mg x1 --> no improvement - In the ED, also received Glucagon 1 mg + 5 mg --> no response to glucagon --> Repeat atropine 1 mg showed slight improvement in heart rate to 32 bpm. - Patient was admitted to ICU, was started on dopamine drip, arterial line for accurate blood pressure measurement and right IJ central line placement for CVP measurement. - Bedside ultrasound for IVC 2.1 cm - Overnight patient was on Dopamine gtt, HR improved from 20s bpm junctional bradycardia around 2am to HR 40-50s bpm by 4am. Rx: - Hold metoprolol and amiodarone at this time. - Dopamine gtt was turned off around 4am. HR sustaining in the 50s. - Cardiology consulted, appreciate recommendations. - Will monitor in the ICU, patient will need dose adjustments for her home beta keila and levothyroxine. RESP: No active problems. GI: No active problems. RENAL: MICHAEL on CKD stage IV Hyperphosphatemia Dx: - Patient has baseline CKD stage IV, now presented with acute on chronic kidney injury - Likely secondary to bradycardia and hypotension causing prerenal MICHAEL. - Phos 6.1 -> 6.3 - NiCOM testing ordered top assess fluid responsiveness, showed >13% response. Rx: - Nephrology consulted for low GFR 9 and CR jump from baseline 26 to 4.5 on admission, appreciate recommendations - Will hold off on HD at this time. - IV fluid bolus, strict input and output monitoring, avoid nephrotoxic drugs - Sevelamer 800mg x1 ordered for Phos binding - Will give IVF boluses and continue to re-hydrate until no response on cheetah. ENDOCRINE: Hypothyroidism Dx: TSH 5.26 Rx: - Increased levothyroxine 100mcg --> 112mcg qD - Ordered free T4 levels to further evaluate - Patient may be suboptimally treated. ID: No active problems. HEME/ONC: Normocytic anemia Dx: Hb 11.1 -> 10.5 and MCV 90s Rx: - patient is ESRD, may benefit from EPO - Consider Iv iron therapy. Will wait for cardiac clearance. - Started daily B12/FA supplementation Health maintenance: Disposition: ICU for bradycardia. Cardio consulted DVT prophylaxis: Eliquis 2.5 BID -- on hold. SCDs until cardiac eval GI prophylaxis: Protonix 40 qD Diet: Dysphagia 1. Will advance to dysphagia 2 or 3 as tolerated. Lines: PIV, femoral art line, right IJ central CODE STATUS: Full code Plan of care discussed with attending Dr Downing, - Rocael Martinez M.D. PGY2 Disclaimer: Minor errors in collection systems consultant may be present as this note was dictated using voice recognition software.
[2024-08-19 11:38] LABS: Basophils % (Auto) 1 % (0-2.5); Eosinophils # (Auto) 0.2 Thou/mm3 (0.0-0.5); Eosinophils % (Auto) 2 % (0-10); Hematocrit 32.1 % (36.0-46.0); Hemoglobin 10.5 g/dL (12.0-16.0); Immature Granulocytes % (Auto) 1 % (0-0); Immature Granulocytes Auto 0.04 Thou/mm3 (0.00-0.00); Lymphocytes # (Auto) 1.7 Thou/mm3 (1.0-4.8); Lymphocytes % (Auto) 20 % (10-50); Mean Corpuscular HGB Conc 32.7 g/dl (31.0-37.0); Mean Corpuscular Hemoglobin 30.3 pg (25.0-35.0); Mean Corpuscular Volume 93 fL (80-100); Monocytes # (Auto) 0.5 Thou/mm3 (0.0-0.8); Monocytes % (Auto) 6 % (0-12); Neutrophils % (Auto) 71 % (37-80); Nucleated Red Blood Cell % 0 /100 WBC (0); Platelet Count 185 Thou/mm3 (140-440); RDW Standard Deviation 55.9 fL (36.4-46.3); Red Blood Count 3.47 Miln/mm3 (4.00-5.20); White Blood Count 8.5 Thou/mm3 (3.6-11.0)
[2024-08-19 11:39] LABS: Albumin, Serum 3.9 gm/dL (3.4-4.8); Anion Gap 15 (7-16); BUN/Creatinine Ratio 13 Ratio (12-20); Blood Urea Nitrogen 54 mg/dL (9-23); Calcium 8.5 mg/dL (8.3-10.6); Calcium (Corrected) 8.6 mg/dL (8.5-10.1); Carbon Dioxide 21.2 mMol/L (20.0-31.0); Chloride 107 mMol/L (98-107); Creatinine (Component) 4.2 mg/dL (0.6-1.3); Estimated Creatinine Clearance 8.1 mL/min (>60); Glucose 72 mg/dL (74-106); Osmolality,Calculated 298 (275-295); Phosphorous 5.9 mg/dL (2.4-5.1); Potassium 3.6 mMol/L (3.4-5.1); Sodium 143 mMol/L (136-145); eGFR 10 See Note
--- NOTE | 2024-08-19 11:40 | PD.RESCONSUL ---
HPI Data of Consult Consult date: 08/19/24 Requesting Physician: Anders Downing MD Admitting Provider: Sameer Dunn MD Attending Provider: Anders Downing MD Primary Care Provider: Ria Amador MD Consult Narrative Reason for consult: Acute renal failure, bradycardia History of present illness: Informant daughter, chart review Ms. Schultz is a 83-year-old female with a past medical history of atrial fibrillation/a flutter with RVR on Eliquis and metoprolol at home, CKD stage IV, hypertension, hypothyroidism and hyperlipidemia who was admitted to [facility] for evaluation of bradycardia as low as 29, onset yesterday around 830 pm. Pt reports never having the symptoms before. It is unsure if patient had taken additional metoprolol XL which is a home medicine for her, however patient's daughter had noticed that patient had began to feel weak and dizzy. Patient had put on pulse ox for her and and revealed that her heart rate was 29 which they immediately called EMS. Her blood tester fowl is Dr. Mello. It is noted that the patient has a history of atrial fibrillation and has been cardioverted this past July. Patient has recently become mainly bedbound and only gets up to go to the toilet. Family denies having any further workup for patient being bedbound and has not had imaging of her spine. She denies any recent travel or sick contacts. No other complaints at this time ED Course: In the ED, patient presented to us mildly hypertensive 135/57, bradycardia with heart rate of 28, respiratory of 12, afebrile satting 100 on room air. Pertinent lab findings included hemoglobin 10.9 MCV 93, platelet 136, BUN 62, creatinine 4.8, EGFR of 8, lactic acid 1.1, troponin 0.046, BNP of 272, lipase of 55 and chest x-ray showed low position of the right humeral head but no pneumonia or pulmonary edema. Patient was given atropine 1 mg x 2 and glucagon secondary to suspicion of beta-keila toxicity; however, patient's status did not improve that she required ICU admission for IV dopamine. Patient's blood pressure continued to soften at which point decision was made to insert central line in the right IJ along with right femoral arterial line. Upon completion of the procedures patient's blood pressure improved; however, patient's urine output has been minimal. Will attempt IV fluid resuscitation and monitor for improvement in kidney function. Cardiology has been consulted and are aware of the patient's status. PMHx: As above Surgeries: Unknown Meds:Metoprolol succinate 100 mg twice daily, amiodarone 200 mg twice daily, furosemide 40 mg daily, Eliquis 2.5 mg daily, Jardiance, losartan 50 mg daily, allopurinol, levothyroxine 112 mcg daily, calcitriol, simvastatin 40 mg daily. Allergies:NKDA Family Hx: Limited Social Hx: Lives at home with her and daughter, no EtOH, no smoking hx or IV/PO drug use cc:: cc: Anders Downing MD Review of Systems Review of Systems Narrative Review of Systems: Limited-denies any chest pain, shortness of breath. Does have significant weakness in the lower extremities. No nausea, vomiting. Decreased p.o. intake. Past Medical History Past Medical History NEUROLOGIC: Positive Neurological Disorders CARDIAC: Positive Congestive Heart Failure and Hypertension RESPIRATORY: Negative Chronic Obstructive Pulmonary Disease (COPD) GENITOURINARY: Positive Renal Disease ENDOCRINE: Positive Hypothyroidism; Negative Diabetes Mellitus Type 1 or Diabetes Mellitus Type 2 OTHER HISTORY: Positive Falls; Negative MRSA Social History SMOKING STATUS: Never smoker Exam Vital Signs Temp Pulse Resp BP Pulse Ox O2 Del Method 97.8 F 50 L 24 H 163/72 H 98 Room Air 08/19/24 08:01 08/19/24 11:00 08/19/24 11:00 08/19/24 11:00 08/19/24 11:00 08/19/24 01:09 Narrative Exam General: AAOx3, NAD, bedbound, weak, elderly female HEENT: Dry mucous membranes, conjunctiva clear, EOMI, PERRLA, Cardiovascular: S1, S2, radial pulses feel faint bilat, bradycardic, possible Ejection systolic murmur auscultated, possible JVD noted Pulmonary: CTAB bilat no cough, no wheezing GI: No tenderness to light or deep palpitation, no guarding, rigidity, rebound tenderness or distension Extremities: No presence of trace or pitting edema in lower extremities bilaterally, dorsalis pedis pulses +2 bilaterally Neuro: AAOx3, limited exam as pt is bedbound at this time significant weakness in the lower extremities. Psych: Good judgement, thought and behavior Results Labs 08/20/24 04:57 08/20/24 04:57 Labs: Short CBC 08/18/24 08/19/24 08/19/24 Range/Units 21:47 04:20 07:03 WBC 9.1 9.1 8.5 (3.6-11.0) Thou/mm3 Hgb 10.9 L 11.1 L 10.5 L (12.0-16.0) g/dL Hct 33.3 L 34.1 L 32.1 L (36.0-46.0) % Plt Count 156 D 189 D 185 (140-440) Thou/mm3 BMP 08/18/24 08/19/24 08/19/24 21:47 04:20 07:03 Sodium 141 143 144 Potassium 4.5 3.9 D 3.8 Chloride 103 106 107 Carbon Dioxide 24.2 23.6 21.7 BUN 62 H 72 H 61 H Creatinine 4.8 H* 4.5 H* 4.4 H* Glucose 116 H 128 H 83 Calcium 8.9 8.3 8.4 Cardiac Enzymes 08/18/24 08/19/24 Range/Units 21:47 07:03 Troponin I 0.046 H* 0.055 H* (0.0-0.045) ng/mL Liver Function 08/18/24 08/19/24 08/19/24 Range/Units 21:47 04:20 07:03 Total Bilirubin 0.4 0.7 (0.3-1.2) mg/dL Direct Bilirubin 0.3 (0.0-0.3) mg/dL AST 69 H 110 H (0-34) U/L ALT 55 H 87 H (10-49) U/L Alkaline Phosphatase 95 103 (46-116) U/L Albumin 4.1 4.2 4.0 (3.4-4.8) gm/dL ABG Interpretation ABG results: 08/19/24 04:11 ABG pH 7.39 ABG pCO2 39 ABG pO2 69 L ABG HCO3 24 ABG O2 Saturation 95 ABG Base Excess -1 Quality Measures Quality Measures none Advance care planning discussed with:: patient Medications Home Medications and Allergies Home Medications ?Medication ?Instructions ?Recorded ?Confirmed ?Type allopurinol 300 mg tablet 300 mg PO QDAY 12/26/22 08/19/24 History atenolol 50 mg tablet 50 mg PO BID 12/26/22 08/19/24 History clonidine HCl 0.3 mg tablet 0.3 mg PO BID 12/26/22 08/19/24 History levothyroxine 100 mcg tablet 100 mcg PO QDAY 12/26/22 08/19/24 History simvastatin 40 mg tablet 40 mg PO QPM 12/26/22 08/19/24 History amiodarone 200 mg tablet 200 mg PO BID 08/19/24 08/19/24 History calcitriol 0.25 mcg capsule 0.25 mcg PO QDAY 08/19/24 08/19/24 History furosemide 20 mg tablet (Lasix) 40 mg PO QAM 08/19/24 08/19/24 History furosemide 40 mg tablet 40 mg PO DAILY 08/19/24 08/19/24 History metoprolol tartrate 100 mg tablet 100 mg PO BID 08/19/24 08/19/24 History Allergies Allergy/AdvReac Type Severity Reaction Status Date / Time No Known Allergies Allergy Verified 08/18/24 20:38 Visit Medications Acetaminophen (Acetaminophen 325 Mg Tablet) 650 mg PO Q6H PRN PRN Reason: PAIN OR FEVER > 101 Stop: 09/18/24 00:04 Apixaban (Apixaban 2.5 Mg Tablet) 2.5 mg PO BID FEMI Stop: 09/18/24 08:59 Last Admin: 08/19/24 09:10 Dose: Not Given Atropine Sulfate (Atropine Sulf Inj 0.1 Mg/Ml Syr 10 Ml) 1 mg IVP Q5MIN PRN PRN Reason: BRADYCARDIA Stop: 09/18/24 00:13 Last Admin: 08/19/24 00:57 Dose: 1 mg Dextrose (Dextrose 50%-Water Inj 50 Ml Syringe) 25 ml IV Q15MIN PRN PRN Reason: BG 50-70 responsive npo pt Stop: 09/18/24 00:09 Dextrose (Dextrose 50%-Water Inj 50 Ml Syringe) 50 ml IV Q15MIN PRN PRN Reason: BG <50 OR BG <70 & pt unresponsive Stop: 09/18/24 00:09 Glucagon (Glucagon Inj 1 Mg Vial) 1 mg IM Q15MIN PRN PRN Reason: BG <70, and no IV access Dopamine HCl/Dextrose (Intropin In D5w Ivpb) 400 mg in 250 mls @ 11.141 mls/hr IV .[id number] [facility]; Protocol Stop: 09/18/24 02:59 Last Titration: 08/19/24 04:30 Dose: 0 mcg/kg/min, 0 mls/hr Lactated Ringer's (Lactated Ringers) 1,000 mls @ 100 mls/hr IV .Q10H ONE Stop: 08/19/24 21:36 Insulin Human Lispro (Insulin Lispro (Admelog) 1 Unit/0.01 Ml Unit) 0 unit SC Q6HR [facility]; Protocol Stop: 09/18/24 05:59 Last Admin: 08/19/24 05:58 Dose: Not Given Levothyroxine Sodium (Levothyroxine Sodium 112 Mcg Tablet) 112 mcg PO ACBR [facility] Stop: 09/18/24 05:59 Last Admin: 08/19/24 05:58 Dose: 112 mcg Ondansetron HCl (Ondansetron Inj 2 Mg/Ml Inj 2 Ml) 4 mg IV Q6H PRN; Protocol PRN Reason: NAUSEA OR VOMITING Stop: 09/18/24 00:04 Pantoprazole Sodium (Pantoprazole Inj 40 Mg Vial) 40 mg IVP QDAY [facility] Stop: 09/18/24 08:59 Last Admin: 08/19/24 09:14 Dose: 40 mg Sennosides (Senna Tablet) 2 tab PO BID PRN; Protocol PRN Reason: CONSTIPATION Stop: 09/18/24 00:04 Discontinued Medications Atropine Sulfate (Atropine Sulf Inj 0.1 Mg/Ml Syr 10 Ml) 1 mg IV X1 ONE Stop: 08/18/24 20:38 Last Admin: 08/18/24 20:44 Dose: 0.5 mg Glucagon (Glucagon Inj 1 Mg Vial) 1 mg IVP X1 ONE Stop: 08/18/24 23:00 Last Admin: 08/18/24 23:08 Dose: 1 mg Glucagon (Glucagon Inj 1 Mg Vial) 5 mg IVP X1 ONE Stop: 08/18/24 23:23 Last Admin: 08/19/24 00:14 Dose: 5 mg Sodium Chloride (Ns) 500 mls @ 999 mls/hr IV .Q31M ONE Stop: 08/19/24 00:45 Last Admin: 08/19/24 01:30 Dose: Not Given Sodium Chloride (Ns) 1,000 mls @ 999 mls/hr IV .Q1H1M ONE Stop: 08/19/24 02:30 Last Infusion: 08/19/24 02:05 Dose: Infused Lactated Ringer's (Lactated Ringers) 500 mls @ 999 mls/hr IV .Q31M ONE Stop: 08/19/24 10:00 Last Admin: 08/19/24 11:14 Dose: Not Given Lactated Ringer's (Lactated Ringers) 500 mls @ 999 mls/hr IV .Q31M ONE Stop: 08/19/24 10:15 Last Admin: 08/19/24 11:14 Dose: Not Given Sodium Chloride (Ns) 500 mls @ 999 mls/hr IV .Q31M ONE Stop: 08/19/24 10:56 Last Admin: 08/19/24 11:07 Dose: 999 mls/hr Insulin Human Lispro (Insulin Lispro (Admelog) 1 Unit/0.01 Ml Unit) 0 unit SC AC FEMI; Protocol Stop: 09/18/24 07:29 Midazolam HCl (Midazolam Inj 1 Mg/Ml Vial 2 Ml) 1 mg IVP X1 ONE Stop: 08/19/24 02:56 Last Admin: 08/19/24 03:22 Dose: 1 mg Midazolam HCl (Midazolam Inj 1 Mg/Ml Vial 2 Ml) 0.5 mg IVP X1 ONE Stop: 08/19/24 03:37 Last Admin: 08/19/24 03:39 Dose: 0.5 mg Ondansetron HCl (Ondansetron Inj 2 Mg/Ml Inj 2 Ml) 4 mg IVP X1 ONE; Protocol Stop: 08/18/24 23:00 Last Admin: 08/18/24 23:09 Dose: 4 mg Assessment & Plan Plan Assessment Patient is an 83-year-old female, past medical history of A-fib RVR, CKD, hypertension, CHF and hypothyroidism, was admitted to the hospital for symptomatic bradycardia. #Acute kidney injury on CKD stage IV #Oliguria #Hyperphosphatemia DDx: Prerenal versus ATN versus obstructive Patient seems to have baseline CKD, appears to be stage IV, creatinine today 4.2 and BUN 54 Robotic Toy Inventor: Dr. Amador UOP: 250 mL There was some possible JVD on physical exam, ICU team to utilize Cheetah to see if pt will be fluid responsive Has been given multiple fluid boluses MICHAEL could be due to lack of renal perfusion with bradycardia Pt currently off dopamine drip, we will see how patient improves with kidney function before starting diaylsis if needed Pt could of had overdose of metoprolol however we are unsure at this point, however, pt could be experiencing Tachybrady syndrome or Sick sinus syndrome waldemar considering her age and her hx of afib Underlying CKD does not seem to be from diabetes as pt does not appear to be diabetic at this point (just prediabetic, A1c 5.7) and denies hx of it Plan: ? Rob ? Urine lytes and creatinine ? Trend CMP and lytes ? Strict GRACE's ? Avoid nephrotoxic agents ? Renally dose medicines #Symptomatic bradycardia #History of A-fib RVR #History of hypothyroidism #History of diabetes mellitus #Acute delirium #Nausea/vomiting #Elevated transaminases #Elevated troponin Patient seen and care discussed with my attending physician, Dr. Perry Anton, PGY-1 Attending Provider Attestation/Addendum Patient seen and examined with resident physician Dr. Solares. Note reviewed, agree with findings and recommendations. Patient currently seen in ICU. Daughter at bedside. 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 History of RVR and now with significant symptomatic bradycardia needing dopamine. Currently off dopamine and heart rate is about 60. Creatinine still remains elevated. No need for urgent dialysis. Spoke to ICU team to do Cheetah and then decide on fluid resuscitation. If no improvement in the renal function in the next 24 hours will plan for renal replacement therapy in AM. Daughter agreed. Thank you Anders for allowing me to participate in the care of Ms. Schultz
[2024-08-19] MEDS: RINGERS LACTATED 1000 ML 1,000 ML 100 ML IV (11:55)
[2024-08-19] MEDS: RINGERS LACTATED 1000 ML 1,000 ML 999 ML IV ×2 (12:11→15:26)
[2024-08-19] MEDS: SEVELAMER CARBONATE 800 MG TABLET PO (12:22)
[2024-08-19] MEDS: VIT B12/Vit C/FA (Nephrovite) TABLET 1 TAB PO (12:22)
[2024-08-19 16:53] LABS: Albumin, Serum 3.7 gm/dL (3.4-4.8); Anion Gap 12 (7-16); BUN/Creatinine Ratio 14 Ratio (12-20); Blood Urea Nitrogen 50 mg/dL (9-23); Calcium 8.4 mg/dL (8.3-10.6); Calcium (Corrected) 8.6 mg/dL (8.5-10.1); Carbon Dioxide 23.4 mMol/L (20.0-31.0); Chloride 108 mMol/L (98-107); Creatinine (Component) 3.7 mg/dL (0.6-1.3); Estimated Creatinine Clearance 9.2 mL/min (>60); Free T4 (Free Thyroxine) 1.76 ng/dL (0.89-1.76); Glucose 95 mg/dL (74-106); Osmolality,Calculated 298 (275-295); Potassium 3.6 mMol/L (3.4-5.1); Sodium 143 mMol/L (136-145); eGFR 12 See Note
--- NOTE | 2024-08-19 17:29 | EKG_ITS ---
[facility] Test Date: 2024-08-19 Pat Name: IVAN LOPEZ [facility]: [facility] Gender: Female [employer] Operator: SHIRA : 1940 Requested By: Rocael Martinez Order Number: [id number] Reading MD: Rocael Martinez Measurements Intervals [place] Rate: 46 P: 76 VT: 204 QRS: 74 QRSD: 182 T: 49 QT: 529 QTc: 464 Interpretive Statements SINUS BRADYCARDIA WITH MARKED SINUS ARRHYTHMIA RIGHT BUNDLE BRANCH BLOCK Compared to ECG 07/15/2024 04:22:15 Sinus rhythm no longer present /store/S0/[id number].pdf
--- NOTE | 2024-08-19 18:34 | PD.RESPRO ---
Documentation for date of: 08/19/24 Subjective Subjective Interval history: Patient received as an ICU downgrade to Team B for care starting today. Patient is a 83-year-old female with past medical history of atrial fibrillation/a flutter with RVR on Eliquis and metoprolol at home, CKD stage IV, hypertension, hypothyroidism and hyperlipidemia who presented to the ED last night on 08/18/2024 with an episode of generalized weakness, dizziness, and heart rate of 20s. Patient was started on dopamine drip and has had improvement of HR to the 40-50s. Dopamine drip turned off since 4:00 am. Patient currently seen at bedside asymptomatic, denying chest pain or dizziness. Daughter is at bedside. Patient has been receiving IV fluids given MICHAEL suspected to be secondary to ATN, Nephrology following. Creatinine and urine output have been improving since admission. Review of systems otherwise negative except what is mentioned above. Exam Vital Signs Temp Pulse Resp BP Pulse Ox O2 Del Method 98.0 F 46 L 14 116/75 100 Room Air 08/19/24 16:03 08/19/24 16:05 08/19/24 16:05 08/19/24 16:05 08/19/24 16:05 08/19/24 01:09 Narrative Exam Physical Exam General: Elderly female, awake and in no acute distress. Conversational and non-toxic appearing. HEENT: Normocephalic, atraumatic, mucous membranes moist. Heart: Bradycardic rate and rhythm, normal S1 and S2, no murmurs. Lungs: Clear to auscultation with no wheezing or crackles. Abdomen: Soft, nondistended, nontender, positive bowel sounds. ?No guarding or rebound tenderness. Neurologic: Alert and oriented x3, no gross neurological deficit, and patient able to move all 4 extremities. Extremities: No edema. Skin: No rash or ecchymoses. Objective Labs 08/21/24 04:48 08/21/24 04:48 Labs: Laboratory Results - last 24 hr 08/18/24 08/19/24 08/19/24 21:47 02:08 04:11 WBC 9.1 RBC 3.59 L Hgb 10.9 L Hct 33.3 L MCV 93 MCH 30.4 MCHC 32.7 RDW Std Deviation 56.0 H Plt Count 156 D Neut % (Auto) 60 Lymph % (Auto) 27 [place] % (Auto) 7 Eos % (Auto) 5 Baso % (Auto) 1 Neut # (Auto) 5.5 Lymph # (Auto) 2.5 [place] # (Auto) 0.6 Eos # (Auto) 0.5 Baso # (Auto) 0.1 Immature Gran # (Auto) 0.04 H Absolute Nucleated RBC 0.00 Immature Gran % 0 Nucleated RBC % 0 PT 11.4 INR 1.0 APTT 31.0 Puncture Site Arterial Line ABG pH 7.39 ABG pCO2 39 ABG pO2 69 L ABG HCO3 24 ABG O2 Saturation 95 ABG Base Excess -1 FiO2 21 Sodium 141 Potassium 4.5 Chloride 103 Carbon Dioxide 24.2 Anion Gap 14 BUN 62 H Creatinine 4.8 H* Estim Creat Clear Calc 6.8 L eGFR 8 L* BUN/Creatinine Ratio 13 Glucose 116 H Calculated Osmolality 299 H Lactic Acid 1.1 Calcium 8.9 Corrected Calcium 8.9 Phosphorus Magnesium 2.2 Total Bilirubin 0.4 Direct Bilirubin AST 69 H ALT 55 H Alkaline Phosphatase 95 Troponin I 0.046 H* B-Natriuretic Peptide 272 H Total Protein 6.8 Albumin 4.1 Globulin 2.7 Albumin/Globulin Ratio 1.5 Triglycerides Cholesterol LDL Cholesterol, Calc HDL Cholesterol Cholesterol/HDL Ratio Lipase 55 H TSH Free T4 08/19/24 08/19/24 08/19/24 04:20 07:03 10:43 WBC 9.1 8.5 RBC 3.63 L 3.47 L Hgb 11.1 L 10.5 L Hct 34.1 L 32.1 L MCV 94 93 MCH 30.6 30.3 MCHC 32.6 32.7 RDW Std Deviation 57.0 H 55.9 H Plt Count 189 D 185 Neut % (Auto) 72 71 Lymph % (Auto) 21 20 [place] % (Auto) 4 6 Eos % (Auto) 2 2 Baso % (Auto) 1 1 Neut # (Auto) 6.6 6.0 Lymph # (Auto) 1.9 1.7 [place] # (Auto) 0.4 0.5 Eos # (Auto) 0.2 0.2 Baso # (Auto) 0.1 0.0 Immature Gran # (Auto) 0.05 H 0.04 H Absolute Nucleated RBC 0.00 0.00 Immature Gran % 1 H 1 H Nucleated RBC % 0 0 PT 11.5 INR 1.1 APTT Puncture Site ABG pH ABG pCO2 ABG pO2 ABG HCO3 ABG O2 Saturation ABG Base Excess FiO2 Sodium 143 144 143 Potassium 3.9 D 3.8 3.6 Chloride 106 107 107 Carbon Dioxide 23.6 21.7 21.2 Anion Gap 13 15 15 BUN 72 H 61 H 54 H Creatinine 4.5 H* 4.4 H* 4.2 H* Estim Creat Clear Calc 7.6 L 7.8 L 8.1 L eGFR 9 L* 9 L* 10 L* BUN/Creatinine Ratio 16 14 13 Glucose 128 H 83 72 L Calculated Osmolality 308 H 303 H 298 H Lactic Acid 1.0 Calcium 8.3 8.4 8.5 Corrected Calcium 8.3 L 8.6 Phosphorus 6.1 H 6.3 H 5.9 H Magnesium 2.1 Total Bilirubin 0.7 Direct Bilirubin 0.3 AST 110 H ALT 87 H Alkaline Phosphatase 103 Troponin I 0.055 H* B-Natriuretic Peptide Total Protein 6.5 Albumin 4.2 4.0 3.9 Globulin Albumin/Globulin Ratio Triglycerides 101 Cholesterol 102 L LDL Cholesterol, Calc 38 HDL Cholesterol 44 Cholesterol/HDL Ratio 2.3 L Lipase TSH 5.26 H Free T4 08/19/24 15:35 WBC RBC Hgb Hct MCV MCH MCHC RDW Std Deviation Plt Count Neut % (Auto) Lymph % (Auto) [place] % (Auto) Eos % (Auto) Baso % (Auto) Neut # (Auto) Lymph # (Auto) [place] # (Auto) Eos # (Auto) Baso # (Auto) Immature Gran # (Auto) Absolute Nucleated RBC Immature Gran % Nucleated RBC % PT INR APTT Puncture Site ABG pH ABG pCO2 ABG pO2 ABG HCO3 ABG O2 Saturation ABG Base Excess FiO2 Sodium 143 Potassium 3.6 Chloride 108 H Carbon Dioxide 23.4 Anion Gap 12 BUN 50 H Creatinine 3.7 H D Estim Creat Clear Calc 9.2 L eGFR 12 L* BUN/Creatinine Ratio 14 Glucose 95 Calculated Osmolality 298 H Lactic Acid Calcium 8.4 Corrected Calcium 8.6 Phosphorus 5.0 Magnesium Total Bilirubin Direct Bilirubin AST ALT Alkaline Phosphatase Troponin I B-Natriuretic Peptide Total Protein Albumin 3.7 Globulin Albumin/Globulin Ratio Triglycerides Cholesterol LDL Cholesterol, Calc HDL Cholesterol Cholesterol/HDL Ratio Lipase TSH Free T4 1.76 ABG Interpretation ABG results: 08/19/24 04:11 ABG pH 7.39 ABG pCO2 39 ABG pO2 69 L ABG HCO3 24 ABG O2 Saturation 95 ABG Base Excess -1 Quality Measures Quality Measures none Advance care planning discussed with:: patient Assessment & Plan Assessment Current Active Medications: Generic Name Dose Route Start Last Admin Trade Name Freq PRN Reason Stop Dose Admin Acetaminophen 650 mg 08/19/24 00:05 Acetaminophen 325 Mg Tablet PO 09/18/24 00:04 Q6H PRN PAIN OR FEVER > 101 Apixaban 2.5 mg 08/19/24 09:00 08/19/24 09:10 Apixaban 2.5 Mg Tablet PO 09/18/24 08:59 Not Given BID FEMI Atropine Sulfate 1 mg 08/19/24 00:14 08/19/24 00:57 Atropine Sulf Inj 0.1 Mg/Ml Syr 10 Ml IVP 09/18/24 00:13 1 mg Q5MIN PRN Administration BRADYCARDIA Dextrose 25 ml 08/19/24 00:10 Dextrose 50%-Water Inj 50 Ml Syringe IV 09/18/24 00:09 Q15MIN PRN BG 50-70 responsive npo pt Dextrose 50 ml 08/19/24 00:10 Dextrose 50%-Water Inj 50 Ml Syringe IV 09/18/24 00:09 Q15MIN PRN BG <50 OR BG <70 & pt unresponsive Glucagon 1 mg 08/19/24 00:10 Glucagon Inj 1 Mg Vial IM Q15MIN PRN BG <70, and no IV access Dopamine HCl/Dextrose 400 mg in 250 mls @ 11.141 mls/hr 08/19/24 03:00 08/19/24 04:30 Intropin In D5w Ivpb IV 09/18/24 02:59 0 mcg/kg/min .[id number] FEMI 0 mls/hr Titration Protocol 5 MCG/KG/MIN Insulin Human Lispro 0 unit 08/19/24 06:00 08/19/24 17:39 Insulin Lispro (Admelog) 1 Unit/0.01 Ml Unit SC 09/18/24 05:59 Not Given Q6HR FEMI Protocol Levothyroxine Sodium 112 mcg 08/19/24 06:00 08/19/24 05:58 Levothyroxine Sodium 112 Mcg Tablet PO 09/18/24 05:59 112 mcg ACBR FEMI Administration Ondansetron HCl 4 mg 08/19/24 00:05 Ondansetron Inj 2 Mg/Ml Inj 2 Ml IV 09/18/24 00:04 Q6H PRN NAUSEA OR VOMITING Protocol Pantoprazole Sodium 40 mg 08/19/24 09:00 08/19/24 09:14 Pantoprazole Inj 40 Mg Vial IVP 09/18/24 08:59 40 mg QDAY FEMI Administration Pharmacy Consult 1 each 08/19/24 13:35 Pharmacy Renal Dose Adjustment 1 Ea XX 09/18/24 13:34 PRN PRN CONSULT Sennosides 2 tab 08/19/24 00:05 Senna Tablet PO 09/18/24 00:04 BID PRN CONSTIPATION Protocol Vitamin B Complex/Vit C/Folic Acid 1 tab 08/19/24 12:15 08/19/24 12:22 Vit B12/Vit C/Fa (Nephrovite) Tablet PO 09/18/24 12:14 1 tab QDAY [facility] Administration Plan 83-year-old female, past medical history of A-fib RVR, CKD, hypertension, CHF and hypothyroidism, was admitted to the hospital for symptomatic bradycardia. She was admitted to ICU for dopamine drip, which subsequently was turned off 08/19/2024 and patient was downgraded to Telemetry. Waiting for studies so labs Patient presented with HR 20s and dizziness, had weak feeble pulses, manual BP 80s systolic on admission and pulse high 20s --> was given atropine 0.5 mg x1 --> no improvement. Also received Glucagon 1 mg + 5 mg --> no response to glucagon --> Repeat atropine 1 mg showed slight improvement in heart rate to 32 bpm. She had a presentation with A-fib RVR requiring DC cardioversion and CHEVY last month. Home medications include: metoprolol succinate 100 mg twice daily + amiodarone 200 mg twice daily + Eliquis 2.5 BID. Follows up with Transit Driver Dr Mello outpatient. Patient was admitted to ICU, was started on dopamine drip, arterial line for accurate blood pressure measurement and right IJ central line placement for CVP measurement. Bedside ultrasound for IVC 2.1 cm Overnight patient was on Dopamine gtt, HR improved from 20s bpm junctional bradycardia around 2am to HR 40-50s bpm by 4am. - Hold metoprolol and amiodarone at this time. - Dopamine gtt was turned off around 4am. HR sustaining in the 50s. - Cardiology consulted, appreciate recommendations. - Downgraded to Tele, patient will need dose adjustments for her home beta keila and levothyroxine. #MICHAEL on CKD stage IV #Hyperphosphatemia Patient has baseline CKD stage IV, now presented with acute on chronic kidney injury Likely secondary to bradycardia and hypotension causing prerenal MICHAEL. Phos 6.1 -> 6.3 NiCOM testing ordered top assess fluid responsiveness, showed >13% response. Possible ATN - Nephrology consulted for low GFR 9 and CR jump from baseline 26 to 4.5 on admission, appreciate recommendations - Will hold off on HD at this time. - IV fluid bolus, strict input and output monitoring, avoid nephrotoxic drugs - Sevelamer 800mg x1 ordered for Phos binding - Will give IVF boluses and continue to re-hydrate until no response on cheetah. #Hypothyroidism TSH 5.26 - Increased levothyroxine 100mcg --> 112mcg qD - Ordered free T4 levels to further evaluate - Patient may be suboptimally treated. #Normocytic anemia Hb 11.1 -> 10.5 and MCV 90s - patient is ESRD, may benefit from EPO - Consider Iv iron therapy. Will wait for cardiac clearance. - Started daily B12/FA supplementation #Hospital delirium resolved #B/L LE weakness Patient was alert and oriented x 3 during initial evaluation in the ER, but later after transferring to ICU, patient became delirious had confused speech. No focal neurological deficit noted, moving all 4 extremities, less likely stroke. Likely acute delirium due to current hospitalization. - Continue frequent reorientation and family visitation - At baseline can only transfer herself from bed to chair. - PT ordered for further assessment of function Health maintenance: Disposition: ICU for bradycardia. Cardio consulted DVT prophylaxis: Eliquis 2.5 BID -- on hold. SCDs until cardiac eval GI prophylaxis: Protonix 40 qD Diet: Dysphagia 1. Will advance to dysphagia 2 or 3 as tolerated. Lines: PIV, femoral art line, right IJ central CODE STATUS: Full code Patient plan of care was discussed with the attending physician, Dr. Valles. Sally Shirley, PGY-2 Attending Provider Attestation/Addendum Face to face evaluation was performed by me. I have personally seen and examined the patient. I discussed the assessment and plan with the entire medicine team. I reviewed available medical records, imaging studies, laboratory results. I agree with the above subjective data, objective findings, assessment and plan except as corrected by me or noted below I know I do not want to respect his wishes you know#Symptomatic bradycardia, junctional rhythm #History of A-fib w/ RVR - off dopamine gtt, cardiology consulted, continue to held b keila, monitor heart rate/rhythm closely. More than > 30 minutes spent on the encounter
[2024-08-19 19:07] LABS: Albumin, Serum 3.5 gm/dL (3.4-4.8); Anion Gap 12 (7-16); BUN/Creatinine Ratio 12 Ratio (12-20); Blood Urea Nitrogen 44 mg/dL (9-23); Calcium 8.5 mg/dL (8.3-10.6); Calcium (Corrected) 8.9 mg/dL (8.5-10.1); Chloride 107 mMol/L (98-107); Creatinine (Component) 3.6 mg/dL (0.6-1.3); Estimated Creatinine Clearance 9.5 mL/min (>60); Glucose 104 mg/dL (74-106); Osmolality,Calculated 296 (275-295); Phosphorous 4.9 mg/dL (2.4-5.1); Potassium 3.7 mMol/L (3.4-5.1); Sodium 143 mMol/L (136-145); eGFR 12 See Note
--- NOTE | 2024-08-19 19:28 | ESOP_ITS ---
<Statement entered by Carolina El MD - 08/30/24 21:08> I, Carolina El MD, have reviewed the history, exam, and assessment of the patient. I have evaluated the patient independently and agree with the plan of care documented by [ ]. All diagnostic studies were reviewed and discussed. I confirm the diagnosis as documented by the Resident. I was present during the Medical Decision Making for this patient. The patient's plan of care was created between myself and the Resident and consistent with our discussion of the patient's case. Procedures Procedure Date / Time 08/19/24 03:10 am Arterial Line Indication(s): inability to monitor non-invasive BP Informed consent obtained: from patient and obtained from surrogate decision maker Time out done, and the following verified: correct patient, side and site, procedure, patient position and implants and/or equipment Size (Gauge): 14 Technique used: guide wire technique Post-Procedure: line sutured into place Patient tolerated procedure: well and no complications EBL(ml): 5 Complications: none Site: right and femoral Procedure comment:
--- NOTE | 2024-08-19 22:50 | ESCONSULT_ITS ---
RE: IVAN LOPEZ : 1940 DATE OF CONSULTATION: 08/19/2024 CONSULTING PHYSICIAN: Hospitalist. REASON FOR CONSULTATION: Evaluation of severe bradycardia, asymptomatic. HISTORY OF PRESENT ILLNESS: The patient is an 83-year-old female with past medical history of atrial flutter/fibrillation, who underwent synchronized cardioversion successfully on 07/13/[address] Mello. She had a longstanding history of chronic kidney disease stage IV, hypertension, hypercholesterolemia, and hypothyroidism. The patient had EKG in 07/13/2024. The patient had atrial fibrillation/flutter with rapid heart rate 150 beats per minute. The patient was anticoagulated with Eliquis and converted to sinus rhythm. Apparently, she was doing fairly well until yesterday. The patient is still doing fairly well, but her heart rate was dropped to 27 beats per minute with junctional rhythm, asymptomatic, now the heart rate improved to 45, sinus rhythm. The patient has been on atenolol 80 mg twice daily and appears to be on metoprolol also 100 mg twice daily, probably some confusion. Once the beta blockers are held, her heart rate improved to 40s now. Initial assessment showed creatinine of 4.8, BUN of 62, and hemoglobin 10.9. Her medication list is also not sure if she is on both beta blockers. She is also on amiodarone 200 mg twice daily and 100 mg of metoprolol succinate twice daily. Other medications include: 1. Lasix 40 mg daily. 2. Eliquis 2.5 mg twice daily. 3. Jardiance. 4. Losartan 50 mg daily. 5. Allopurinol 300 mg daily. 6. Levothyroxine 112 mcg daily. 7. Calcitriol daily. 8. Simvastatin 40 mg daily. PAST MEDICAL HISTORY: Hypertension, chronic kidney disease, atrial fibrillation/flutter, requiring cardioversion, hypothyroidism, gout, and hypercholesterolemia. SOCIAL HISTORY: The patient lives with family. Does not smoke or drink alcoholic beverages. FAMILY HISTORY: Noncontributory. PHYSICAL EXAMINATION: GENERAL: Well-nourished, thin built elderly female, alert, awake, in no acute distress, quite comfortable, not having any symptoms. VITAL SIGNS: Her heart rate is 48, blood pressure 130/60, , and temperature normal. HEENT: Head is atraumatic and normocephalic. Eyes normal. ENT normal. NECK: Supple. No JVD. Carotid pulses felt, but no bruit. CHEST: Symmetrical. LUNGS: Clear. HEART: S1 and S2 regular. No gallops. ABDOMEN: Thin and soft. EXTREMITIES: Mild edema. GENITOURINARY AND RECTAL: Not performed. METABOLIC SPECIALIST: Normal. Electrocardiogram shows sinus bradycardia with nonspecific ST changes, right bundle branch block pattern is seen. Initial EKG showed evidence of marked bradycardia, junctional escape rhythm, rate of 27 beats per minute. LABORATORY DATA: Initially showed hemoglobin 10.5, potassium level is normal at 3.6, creatinine 4.2, BUN 54, and creatinine clearance of 10. IMPRESSION: 1. Asymptomatic bradycardia, junctional rhythm, rate of 26 beats per minute, improved to 45. 2. Tachybradyarrhythmia, history of atrial fibrillation with rapid ventricular response and now sinus bradycardia. We will stop the amiodarone and all the beta blockers completely. Heart rate improves. If she maintains sinus rhythm, we will watch her closely. If she goes back to atrial fibrillation again, possibly require beta blockers. The patient will require permanent pacemaker implantation. Other problems include chronic kidney disease, now stage V. The patient is not on dialysis. 3. Hypertension, now stable. 4. Diabetes mellitus. 5. Hypercholesterolemia. RECOMMENDATION: For now, there is no need for pacemaker implantation, but we will monitor closely for cardiac arrhythmias. No advanced AV block currently. I would like to thank for referring this patient for cardiovascular evaluation. We will be glad to follow the patient and will also sign out to Dr. Mello, who did take care of the patient last month. DT: 20:55:23 TT: 22:47:00 Ref: [id number] - TID: [id number] [facility]
[2024-08-20] VITALS (9 sets, daily range): BP systolic 128–161; BP diastolic 60–89; PULSE 50–68; RESP 13–97; TEMP 36.6–36.9; O2SAT 95–98; BMI 28.0
[2024-08-20] MEDS: LEVOTHYROXINE SODIUM 112 MCG TABLET PO (05:21)
[2024-08-20 06:05] LABS: Basophils % (Auto) 0 % (0-2.5); Eosinophils # (Auto) 0.4 Thou/mm3 (0.0-0.5); Eosinophils % (Auto) 4 % (0-10); Hematocrit 29.6 % (36.0-46.0); Hemoglobin 9.6 g/dL (12.0-16.0); Immature Granulocytes % (Auto) 0 % (0-0); Immature Granulocytes Auto 0.03 Thou/mm3 (0.00-0.00); Lymphocytes # (Auto) 1.9 Thou/mm3 (1.0-4.8); Lymphocytes % (Auto) 20 % (10-50); Mean Corpuscular HGB Conc 32.4 g/dl (31.0-37.0); Mean Corpuscular Hemoglobin 30.4 pg (25.0-35.0); Mean Corpuscular Volume 94 fL (80-100); Monocytes # (Auto) 0.5 Thou/mm3 (0.0-0.8); Monocytes % (Auto) 6 % (0-12); Neutrophils # (Auto) 6.5 Thou/mm3 (1.8-7.7); Neutrophils % (Auto) 69 % (37-80); Nucleated Red Blood Cell % 0 /100 WBC (0); Platelet Count 165 Thou/mm3 (140-440); RDW Standard Deviation 56.5 fL (36.4-46.3); Red Blood Count 3.16 Miln/mm3 (4.00-5.20); White Blood Count 9.5 Thou/mm3 (3.6-11.0)
[2024-08-20 06:21] LABS: Albumin, Serum 3.6 gm/dL (3.4-4.8); Anion Gap 12 (7-16); BUN/Creatinine Ratio 15 Ratio (12-20); Blood Urea Nitrogen 48 mg/dL (9-23); Calcium 8.7 mg/dL (8.3-10.6); Carbon Dioxide 24.8 mMol/L (20.0-31.0); Chloride 107 mMol/L (98-107); Creatinine (Component) 3.2 mg/dL (0.6-1.3); Estimated Creatinine Clearance 10.6 mL/min (>60); Glucose 84 mg/dL (74-106); Osmolality,Calculated 298 (275-295); Phosphorous 4.4 mg/dL (2.4-5.1); Potassium 4.1 mMol/L (3.4-5.1); Sodium 144 mMol/L (136-145); eGFR 14 See Note
[2024-08-20] MEDS: VIT B12/Vit C/FA (Nephrovite) TABLET 1 TAB PO (07:27)
[2024-08-20] MEDS: PANTOPRAZOLE INJ 40 MG VIAL IVP (07:27)
--- NOTE | 2024-08-20 10:16 | ESPR_ITS ---
Documentation for date of: 08/20/24 Subjective Subjective Interval history: No acute overnight events reported. Patient is seen and examined at bedside this morning. Patient is very confused she is able to recall her name and birthdate but other than that she cannot identify time and place. Telemetry is reviewed patient is sinus with a heart rate of 63-64. Vitals and labs are reviewed. Creatinine is 3.2, BUN 48, GFR 14. nephrology and cardio closely monitoring. If pt's kidney function does not improve, then will consider dialysis. Pt has no complaints. Exam Vital Signs Temp Pulse Resp BP Pulse Ox O2 Del Method 98.2 F 54 L 21 H 153/89 H 95 Room Air 08/20/24 08:00 08/20/24 08:00 08/20/24 08:00 08/20/24 08:00 08/20/24 08:00 08/20/24 08:00 Narrative Exam GENERAL: A&Ox1, elderly female, very confused today, Awake, Not in acute distress NEURO: no focal neurological deficits noted HEENT: Atraumatic, Normocephalic. mucous membranes moist. Eyes open, symmetrical, & clear HEART: Normal Heart Sounds LUNGS: Clear to auscultation with no wheezing or crackles. ABDOMEN: soft, non-distended, non-tender, bowel sounds heard, no guarding or rebound tenderness SKIN: No Rash or ecchymoses EXTREMITIES: No edema, tenderness, able to move all 4 extremities, pedal pulses palpated Objective Labs 08/21/24 04:48 08/21/24 04:48 Labs: Laboratory Results - last 24 hr 08/19/24 08/19/24 08/19/24 07:03 10:43 15:35 WBC 8.5 RBC 3.47 L Hgb 10.5 L Hct 32.1 L MCV 93 MCH 30.3 MCHC 32.7 RDW Std Deviation 55.9 H Plt Count 185 Neut % (Auto) 71 Lymph % (Auto) 20 Saline % (Auto) 6 Eos % (Auto) 2 Baso % (Auto) 1 Neut # (Auto) 6.0 Lymph # (Auto) 1.7 Saline # (Auto) 0.5 Eos # (Auto) 0.2 Baso # (Auto) 0.0 Immature Gran # (Auto) 0.04 H Absolute Nucleated RBC 0.00 Immature Gran % 1 H Nucleated RBC % 0 Sodium 143 143 Potassium 3.6 3.6 Chloride 107 108 H Carbon Dioxide 21.2 23.4 Anion Gap 15 12 BUN 54 H 50 H Creatinine 4.2 H* 3.7 H D Estim Creat Clear Calc 8.1 L 9.2 L eGFR 10 L* 12 L* BUN/Creatinine Ratio 13 14 Glucose 72 L 95 Calculated Osmolality 298 H 298 H Calcium 8.5 8.4 Corrected Calcium 8.6 8.6 Phosphorus 5.9 H 5.0 Magnesium Albumin 3.9 3.7 Free T4 1.76 08/19/24 08/20/24 18:16 04:57 WBC 9.5 RBC 3.16 L Hgb 9.6 L Hct 29.6 L MCV 94 MCH 30.4 MCHC 32.4 RDW Std Deviation 56.5 H Plt Count 165 Neut % (Auto) 69 Lymph % (Auto) 20 Saline % (Auto) 6 Eos % (Auto) 4 Baso % (Auto) 0 Neut # (Auto) 6.5 Lymph # (Auto) 1.9 Saline # (Auto) 0.5 Eos # (Auto) 0.4 Baso # (Auto) 0.0 Immature Gran # (Auto) 0.03 H Absolute Nucleated RBC 0.00 Immature Gran % 0 Nucleated RBC % 0 Sodium 143 144 Potassium 3.7 4.1 Chloride 107 107 Carbon Dioxide 24.0 24.8 Anion Gap 12 12 BUN 44 H 48 H Creatinine 3.6 H 3.2 H Estim Creat Clear Calc 9.5 L 10.6 L eGFR 12 L* 14 L* BUN/Creatinine Ratio 12 15 Glucose 104 84 Calculated Osmolality 296 H 298 H Calcium 8.5 8.7 Corrected Calcium 8.9 9.0 Phosphorus 4.9 4.4 Magnesium 2.0 Albumin 3.5 3.6 Free T4 ABG Interpretation ABG results: 08/19/24 04:11 ABG pH 7.39 ABG pCO2 39 ABG pO2 69 L ABG HCO3 24 ABG O2 Saturation 95 ABG Base Excess -1 Quality Measures Quality Measures none Advance care planning discussed with:: other Assessment & Plan Assessment Current Active Medications: Generic Name Dose Route Start Last Admin Trade Name Freq PRN Reason Stop Dose Admin Acetaminophen 650 mg 08/19/24 00:05 Acetaminophen 325 Mg Tablet PO 09/18/24 00:04 Q6H PRN PAIN OR FEVER > 101 Allopurinol 100 mg 08/20/24 10:00 Allopurinol 100 Mg Tablet PO 09/19/24 09:59 QDAY FEMI Apixaban 2.5 mg 08/19/24 09:00 08/19/24 09:10 Apixaban 2.5 Mg Tablet PO 09/18/24 08:59 Not Given BID FEMI Atorvastatin Calcium 40 mg 08/20/24 21:00 Atorvastatin Calcium 20 Mg Tablet PO 09/19/24 20:59 HS FEMI Calcitriol 0.25 mcg 08/20/24 10:00 Calcitriol 0.25 Mcg Capsule PO 09/19/24 09:59 QDAY FEMI Glucagon 1 mg 08/19/24 18:55 Glucagon Inj 1 Mg Vial IM Q15MIN PRN BG <70, and no IV access Levothyroxine Sodium 112 mcg 08/19/24 06:00 08/20/24 05:21 Levothyroxine Sodium 112 Mcg Tablet PO 09/18/24 05:59 112 mcg ACBR FEMI Administration Ondansetron HCl 4 mg 08/19/24 00:05 Ondansetron Inj 2 Mg/Ml Inj 2 Ml IV 09/18/24 00:04 Q6H PRN NAUSEA OR VOMITING Protocol Pantoprazole Sodium 40 mg 08/19/24 09:00 08/20/24 07:27 Pantoprazole Inj 40 Mg Vial IVP 09/18/24 08:59 40 mg QDAY FEMI Administration Pharmacy Consult 1 each 08/19/24 13:35 Pharmacy Renal Dose Adjustment 1 Ea XX 09/18/24 13:34 PRN PRN CONSULT Sennosides 2 tab 08/19/24 00:05 Senna Tablet PO 09/18/24 00:04 BID PRN CONSTIPATION Protocol Vitamin B Complex/Vit C/Folic Acid 1 tab 08/19/24 12:15 08/20/24 07:27 Vit B12/Vit C/Fa (Nephrovite) Tablet PO 09/18/24 12:14 1 tab QDAY FEMI Administration Plan Ms. Schultz is a 83-year-old female, past medical history of A-fib RVR, CKD, hypertension, CHF and hypothyroidism, was admitted to the hospital for symptomatic bradycardia. She was admitted to ICU for dopamine drip, which subsequently was turned off 08/19/2024 and patient was downgraded to Telemetry. #MICHAEL on CKD stage IV #Hyperphosphatemia- resolved Patient has baseline CKD stage IV, now presented with acute on chronic kidney injury Likely secondary to bradycardia and hypotension causing prerenal MICAHEL. Phos 6.1 -> 6.3 NiCOM testing ordered top assess fluid responsiveness, showed >13% response. Possible ATN - Nephrology consulted for low GFR 9 and CR jump from baseline 26 to 4.5 on admission, appreciate recommendations - Will consider HD if pt's kidney function does not improve - IV fluid bolus, strict input and output monitoring, avoid nephrotoxic drugs - Sevelamer 800mg x1 ordered for Phos binding on 08/19 - Will give IVF boluses and continue to re-hydrate until no response on cheetah. #Hospital delirium #B/L LE weakness Patient was alert and oriented x 3 during initial evaluation in the ER, but later after transferring to ICU, patient became delirious had confused speech. No focal neurological deficit noted, moving all 4 extremities, less likely stroke. Likely acute delirium due to current hospitalization. - Continue frequent reorientation and family visitation - At baseline can only transfer herself from bed to chair. - PT ordered for further assessment of function #Symptomatic bradycardia, junctional rhythm #History of A-fib w/ RVR Patient presented with HR 20s and dizziness, had weak feeble pulses, manual BP 80s systolic on admission and pulse high 20s --> was given atropine 0.5 mg x1 --> no improvement. Also received Glucagon 1 mg + 5 mg --> no response to glucagon --> Repeat atropine 1 mg showed slight improvement in heart rate to 32 bpm. She had a presentation with A-fib RVR requiring DC cardioversion and CHEVY last month. Home medications include: metoprolol succinate 100 mg twice daily + amiodarone 200 mg twice daily + Eliquis 2.5 BID. Follows up with Proposal Manager Writer Dr Mello outpatient. Patient was admitted to ICU, was started on dopamine drip, arterial line for accurate blood pressure measurement and right IJ central line placement for CVP measurement. Bedside ultrasound for IVC 2.1 cm Overnight patient was on Dopamine gtt, HR improved from 20s bpm junctional bradycardia around 2am to HR 40-50s bpm by 4am. - Hold metoprolol and amiodarone at this time. - Dopamine gtt was turned off around 4am. HR sustaining in the 50s- on 08/19 - Cardiology consulted, appreciate recommendations. - Downgraded to Tele, patient's home beta keila is held and dose adjusted levothyroxine. #Hypothyroidism TSH 5.26 - Increased levothyroxine 100mcg --> 112mcg qD #Normocytic anemia Hb 11.1 -> 10.5 and MCV 90s - patient is ESRD, may benefit from EPO - Consider Iv iron therapy. Will wait for cardiac clearance. - Started daily B12/FA supplementation Health maintenance: Disposition: telemetry for close monitoring of bradycardia DVT prophylaxis: Eliquis 2.5 BID -- on hold. SCDs until cardiac eval GI prophylaxis: Protonix 40 qD Diet: Dysphagia 2, mechanically altered Lines: PIV CODE STATUS: Full code Assessment and plan discussed with my attending physician Dr. Hai Batres ([id number]-[id number])- Internal medicine resident Attending Provider Attestation/Addendum Face to face evaluation was performed by me. I have personally seen and examined the patient. I discussed the assessment and plan with the entire medicine team. I reviewed available medical records, imaging studies, laboratory results. I agree with the above subjective data, objective findings, assessment and plan except as corrected by me or noted below #Symptomatic bradycardia, junctional rhythm #History of A-fib w/ RVR # NSTEMI type 2 demand ischemia, do no suspect ACS - was transferred out from the icu - required dopamine gtt, cardiology was consulted, continue to held b keila, monitor heart rate/rhythm closely. More than > 30 minutes spent on the encounter
[2024-08-20] MEDS: allopurinoL 100 MG TABLET PO (10:28)
[2024-08-20] MEDS: CALCITRIOL 0.25 mCg CAPSULE PO (10:28)
--- NOTE | 2024-08-20 11:56 | PD.NEPHPROG ---
Documentation for date of: 08/20/24 Subjective Subjective Interval history: Ms. Schultz is a 83-year-old female with a past medical history of atrial fibrillation/a flutter with RVR on Eliquis and metoprolol at home, CKD stage IV, hypertension, hypothyroidism and hyperlipidemia who was admitted to [facility] for evaluation of bradycardia as low as 29, onset yesterday around 830 pm. Pt reports never having the symptoms before. It is unsure if patient had taken additional metoprolol XL which is a home medicine for her, however patient's daughter had noticed that patient had began to feel weak and dizzy. Patient had put on pulse ox for her and and revealed that her heart rate was 29 which they immediately called EMS. Her business excellence manager is Dr. Mello. It is noted that the patient has a history of atrial fibrillation and has been cardioverted this past July. Patient has recently become mainly bedbound and only gets up to go to the toilet. Family denies having any further workup for patient being bedbound and has not had imaging of her spine. She denies any recent travel or sick contacts. No other complaints at this time ED Course: In the ED, patient presented to us mildly hypertensive 135/57, bradycardia with heart rate of 28, respiratory of 12, afebrile satting 100 on room air. Pertinent lab findings included hemoglobin 10.9 MCV 93, platelet 136, BUN 62, creatinine 4.8, EGFR of 8, lactic acid 1.1, troponin 0.046, BNP of 272, lipase of 55 and chest x-ray showed low position of the right humeral head but no pneumonia or pulmonary edema. Patient was given atropine 1 mg x 2 and glucagon secondary to suspicion of beta-keila toxicity; however, patient's status did not improve that she required ICU admission for IV dopamine. Patient's blood pressure continued to soften at which point decision was made to insert central line in the right IJ along with right femoral arterial line. Upon completion of the procedures patient's blood pressure improved; however, patient's urine output has been minimal. Will attempt IV fluid resuscitation and monitor for improvement in kidney function. Cardiology has been consulted and are aware of the patient's status. 08/20/2024 patient currently seen in telemetry. Still seems to be very confused. Seen Dr. Vera's note. Blood pressure 153/89, heart rate 54. Hemoglobin 9.6. Sodium 144, potassium 4.1, BUN 48, creatinine 3.2, GFR 14. Review of Systems Review of Systems Narrative Review of Systems: Limited due to her confusion. Denies any chest pain. Daughter, at bedside Exam Vital Signs Temp Pulse Resp BP Pulse Ox O2 Del Method 36.8 C 54 L 21 H 153/89 H 95 Room Air 08/20/24 08:00 08/20/24 08:00 08/20/24 08:00 08/20/24 08:00 08/20/24 08:00 08/20/24 08:00 Narrative Exam GENERAL APPEARANCE: Patient seems to be comfortable, adequately hydrated and nourished. HEENT: EOMI, PERRLA NECK: Neck supple, no JVD or bruit CARDIOVASCULAR: Heart regular, no murmurs LUNGS/CHEST: Chest clear to auscultation. No rales, rhonchi, wheezing ABDOMEN: Soft, nontender, nondistended. No masses. Normal bowel sounds. EXTREMITIES: No edema, clubbing or cyanosis. SKIN: Skin exam normal without any rashes MUSCULOSKELETAL: In bed NEUROLOGICAL : Confusion noted Objective Labs 08/20/24 04:57 08/20/24 04:57 Labs: Laboratory Results - last 24 hr 08/19/24 08/19/24 08/20/24 15:35 18:16 04:57 WBC 9.5 RBC 3.16 L Hgb 9.6 L Hct 29.6 L MCV 94 MCH 30.4 MCHC 32.4 RDW Std Deviation 56.5 H Plt Count 165 Neut % (Auto) 69 Lymph % (Auto) 20 [place] % (Auto) 6 Eos % (Auto) 4 Baso % (Auto) 0 Neut # (Auto) 6.5 Lymph # (Auto) 1.9 [place] # (Auto) 0.5 Eos # (Auto) 0.4 Baso # (Auto) 0.0 Immature Gran # (Auto) 0.03 H Absolute Nucleated RBC 0.00 Immature Gran % 0 Nucleated RBC % 0 Sodium 143 143 144 Potassium 3.6 3.7 4.1 Chloride 108 H 107 107 Carbon Dioxide 23.4 24.0 24.8 Anion Gap 12 12 12 BUN 50 H 44 H 48 H Creatinine 3.7 H D 3.6 H 3.2 H Estim Creat Clear Calc 9.2 L 9.5 L 10.6 L eGFR 12 L* 12 L* 14 L* BUN/Creatinine Ratio 14 12 15 Glucose 95 104 84 Calculated Osmolality 298 H 296 H 298 H Calcium 8.4 8.5 8.7 Corrected Calcium 8.6 8.9 9.0 Phosphorus 5.0 4.9 4.4 Magnesium 2.0 Albumin 3.7 3.5 3.6 Free T4 1.76 ABG Interpretation ABG results: 08/19/24 04:11 ABG pH 7.39 ABG pCO2 39 ABG pO2 69 L ABG HCO3 24 ABG O2 Saturation 95 ABG Base Excess -1 Assessment & Plan Additional Assessment & Plan Additional Plan: Patient is an 83-year-old female, past medical history of A-fib RVR, CKD, hypertension, CHF and hypothyroidism, was admitted to the hospital for symptomatic bradycardia. #Acute kidney injury on CKD stage IV #Oliguria #Hyperphosphatemia Patient currently seems to be in ischemic ATN. Has been given multiple fluid boluses MICHAEL could be due to lack of renal perfusion with bradycardia Pt currently off dopamine drip, we will see how patient improves with kidney function before starting diaylsis if needed Pt could of had overdose of metoprolol however we are unsure at this point, however, pt could be experiencing Tachybrady syndrome or Sick sinus syndrome waldemar considering her age and her hx of afib Underlying CKD does not seem to be from ischemic nephropathy Plan: ? Rob ? Urine lytes and creatinine ? Trend CMP and lytes ? Strict GRACE's ? Avoid nephrotoxic agents ? Renally dose medicines Did discuss with the daughter that if there is no improvement in his renal function or if the patient continues to be confused will plan for dialysis tomorrow. She agreed. #Symptomatic bradycardia-off dopamine. Came out of ICU. #History of A-fib RVR-off amiodarone, beta-blockers. #History of hypothyroidism #History of diabetes mellitus #Acute delirium #Nausea/vomiting #Elevated transaminases #Elevated troponin Procedures Arterial Line Size (Gauge): 14
[2024-08-20] MEDS: SODIUM CHLORIDE 0.45 % 1,000 ML 70 ML IV (12:19)
[2024-08-20] MEDS: amLODIPine BESYLATE 5 MG TABLET 10 MG PO (12:51)
[2024-08-20] MEDS: TUBERCULIN PPD INJ 5 UNIT/0.1 ML DOSE ID (12:51)
[2024-08-20 20:07] LABS: Hepatitis A Antibody IgM Non Reactive (Non React); Hepatitis B Core Antibody IgM Non Reactive (Non React); Hepatitis B Surface Antigen Non Reactive (Non React); Hepatitis C Antibody Non Reactive (Non React)
--- NOTE | 2024-08-20 20:07 | ESPR_ITS ---
RE: JELENA SCHULTZ : 1940 DATE OF SERVICE: 08/20/2024 SUBJECTIVE: Jelena Schultz is 83-year-old lady admitted to the hospital with severe marked bradycardia, heart rate of 20. She has a history of paroxysmal atrial fibrillation, rapid heart rate, was given amiodarone, beta-keila, heart rate to be slow. Her heart rate did improve significantly. She is transferred to telemetry today. She is very confused. She still has BUN and creatinine elevated with renal failure. Dr. Amador is following the patient as well. OBJECTIVE: General: The patient is still asymptomatic. Vital Signs: Her blood pressure 129/65, pulse 68, respirations 24. Temperature is normal. Oxygen saturation is 98% room air. Head: Atraumatic. Neck: Supple. No JVD. Lungs: Decreased breath sounds with no rales, rhonchi. Heart: S1, S2 regular. No gallops. Abdomen: Thin and soft. Extremities: No edema. LABORATORY DATA: Showed hemoglobin 9.6, stable. Chemistry panel showed continued elevation of creatinine of 3.2. Creatinine clearance around 14, very low. IMPRESSION/ASSESSMENT: 1. Marked sinus bradycardia secondary to beta-keila and amiodarone. 2. Paroxysmal atrial fibrillation, possible sick sinus syndrome tachybrady arrhythmia. 3. Chronic kidney disease stage V, followed by nephrology. RECOMMENDATIONS: The patient is recommended to continue holding off of the beta blockers completely for now and continue on apixaban. Amlodipine for hypertension. We will also hold off amiodarone for now as long as the patient is maintaining sinus rhythm. If she goes back to AFib with RVR, we may have to give her amiodarone and if she becomes bradycardic, may require a pacemaker implantation. For now, she is asymptomatic, doing well and to continue observation for now. I will sign off to Dr. Mello, who took care of the patient and previous hospitalization. DT: 18:04:54 TT: 20:06:00 Ref: [id number] - TID: [id number]
[2024-08-20] MEDS: ATORVASTATIN CALCIUM 20 MG TABLET 40 MG PO (20:22)
[2024-08-20] MEDS: SENNA TABLET 2 TAB PO (20:26)
--- NOTE | 2024-08-20 23:52 | PD.IMPROG ---
Documentation for date of: 08/20/24 Subjective Subjective Interval history: Patient seen and examined at the bedside. No new cardiac complaints. Patient appears mildly confused and mostly send and during my examination. Telemetry reviewed and heart rate is between 50 to 60 bpm Patient presented with severe bradycardia and junctional escape rhythm due to confusion on the medications written during previous discharge summary. Please hold off on all the rate control medications at the present point of time. Recommended the daughter to bring all the medications that she has at home and we will start of the medication list completely and started on low-dose metoprolol if needed Continue Eliquis for anticoagulation. Continue monitor telemetry Keep potassium between 4 and 5 and magnesium greater than 2 at all times. Exam Vital Signs Temp Pulse Resp BP Pulse Ox O2 Del Method 97.9 F 63 22 H 128/60 96 Room Air 08/20/24 20:00 08/20/24 20:00 08/20/24 20:00 08/20/24 20:00 08/20/24 20:00 08/20/24 20:00 Narrative Exam General: Alert and oriented x3. In no acute distress. Eyes: Pupils are equal and reactive to light bilaterally. HEENT: Atraumatic, normocephalic. No JVD noted. Mucosa moist. Cardiovascular: Normal S1 and S2. Bradycardic and regular rhythm. 2 or 6 systolic murmur in mitral as well as the aortic area, no peripheral pitting edema noted. Respiratory: No respiratory distress. Lungs are clear to auscultation bilaterally. No wheezing or crackles heard. Abdomen: Soft, nontender, nondistended. Skin: No rash. Warm to touch. Musculoskeletal: No gross injuries. Able to move all 4 extremities. Neuro: Alert and oriented x3. Mildly confused during my exam appears to be sundowning. Limited neuroexam. Objective Labs 08/20/24 04:57 08/20/24 04:57 Labs: Laboratory Results - last 24 hr 08/20/24 04:57 WBC 9.5 RBC 3.16 L Hgb 9.6 L Hct 29.6 L MCV 94 MCH 30.4 MCHC 32.4 RDW Std Deviation 56.5 H Plt Count 165 Neut % (Auto) 69 Lymph % (Auto) 20 [place] % (Auto) 6 Eos % (Auto) 4 Baso % (Auto) 0 Neut # (Auto) 6.5 Lymph # (Auto) 1.9 [place] # (Auto) 0.5 Eos # (Auto) 0.4 Baso # (Auto) 0.0 Immature Gran # (Auto) 0.03 H Absolute Nucleated RBC 0.00 Immature Gran % 0 Nucleated RBC % 0 Sodium 144 Potassium 4.1 Chloride 107 Carbon Dioxide 24.8 Anion Gap 12 BUN 48 H Creatinine 3.2 H Estim Creat Clear Calc 10.6 L eGFR 14 L* BUN/Creatinine Ratio 15 Glucose 84 Calculated Osmolality 298 H Calcium 8.7 Corrected Calcium 9.0 Phosphorus 4.4 Magnesium 2.0 Albumin 3.6 Hepatitis A IgM Ab Non Reactive Hep Bs Antigen Non Reactive Hep B Core IgM Ab Non Reactive Hepatitis C Antibody Non Reactive ABG Interpretation ABG results: 08/19/24 04:11 ABG pH 7.39 ABG pCO2 39 ABG pO2 69 L ABG HCO3 24 ABG O2 Saturation 95 ABG Base Excess -1 Assessment & Plan A&P Narrative 83-year-old female patient with a past medical history of paroxysmal atrial fibrillation status post in cardioversion on 07/14/2024, on anticoagulation with Eliquis, metoprolol with heart rate, CKD stage IV, essential hypertension, hyperlipidemia, hypothyroidism, osteoarthritis, moderate PAH, gout presented to the emergency department for further evaluation of bradycardia. Initial EKG showed marked sinus bradycardia at 27 bpm with junctional escape rhythm no other acute ST-T changes. Patient's BUN was 54 creatinine was 4.2 but potassium level was normal at 3.6 and the hemoglobin was 10.5. Patient was admitted to the intensive care unit and is initially placed on dopamine drip overnight and all the rate control medications were stopped. Patient's heart rate is improved into the 50s and 60s now and continues to be in normal sinus rhythm. Assessment and plan: 1. Asymptomatic severe bradycardia-was in junctional rhythm arrival 2. Paroxysmal atrial fibrillation with possible tachybradycardia syndrome on anticoagulation 3. CKD stage IV 4. Moderate pulmonary hypertension 5. Hypertension 6. Hyper thyroidism 7. Hyperlipidemia 8. Osteoarthritis 9. Gout Patient presented with severe bradycardia and review of the record showed that patient was recommended to be discharged only on metoprolol XL 50 mg once daily at the time of discharge and was specified in my note but the discharge summary showed patient was recommended to continue atenolol 50 mg twice daily as well as metoprolol tartrate 50 mg twice daily. Patient was never on oral amiodarone at any given point of time. Unfortunately patient has been taking both the medications at home regularly and has never stopped atenolol. I discussed with the daughter in detail at the bedside to bring all the medications tomorrow to the hospital and I will review all of them closely and instruct her to take the medications exactly. Okay to hold all rate control medications at the present point of time patient continues to be in sinus rhythm between 50 to 60 bpm. Will start with metoprolol XL at a lower dose if needed and then slowly uptitrated based on her heart rate when she brings her all her medications. Continue with Eliquis for anticoagulation. No evidence of clear tachybradycardia syndrome as pt presented with possible overdose of beta-blockers. Management of rest of the medical conditions as per primary team and other consultants. Thank you for the consult and allowing me to participate in the care of the patient. Cardiology will continue to follow. Elijah Mello M.D. Interventional Cardiology Time Spent With Patient Time: Total time spent is greater than 50% in coordination of care (as documented) at patient's floor/unit and/or counseling patient: Procedures Arterial Line Size (Gauge): 14
[2024-08-21] VITALS (12 sets, daily range): BP systolic 109–155; BP diastolic 52–77; PULSE 55–81; RESP 12–99; TEMP 36.1–37.5; O2SAT 94–98; BMI 28.0
[2024-08-21] MEDS: LEVOTHYROXINE SODIUM 112 MCG TABLET PO (05:32)
--- NOTE | 2024-08-21 05:32 | XR_ITS ---
Examination: CT brain head without contrast. 2-D sagittal coronal reconstructions Date and time of exam:August 21, 2024 1204 hours INDICATIONS: Altered mental status today CTDI: vol (mGy):50 DLP: (mGycm):1054 Technique: Multiple CT axial sections of the brain have been obtained, 5 mm slice thickness. Contrast has not been administered. 2-D sagittal, coronal reconstructions have been obtained Low dose protocols were performed. One or more of the following dose reduction techniques were used; automated exposure control, adjustment of the mA and/or KV according to patient size, use of iterative reconstruction technique. Findings: No significant ventricular enlargement. Intra-axial or extra-axial hemorrhage density is not seen. No mass effect or midline shift Basal cisterns are not remarkable. Fourth ventricle is midline. Cranial vault intact. Impression: Negative for acute hemorrhage, mass effect or midline shift Advise clinical correlation follow-up accordingly
[2024-08-21 05:50] LABS: Basophils % (Auto) 0 % (0-2.5); Eosinophils # (Auto) 0.4 Thou/mm3 (0.0-0.5); Eosinophils % (Auto) 3 % (0-10); Hematocrit 29.9 % (36.0-46.0); Hemoglobin 9.6 g/dL (12.0-16.0); Immature Granulocytes % (Auto) 1 % (0-0); Immature Granulocytes Auto 0.06 Thou/mm3 (0.00-0.00); Lymphocytes # (Auto) 1.7 Thou/mm3 (1.0-4.8); Lymphocytes % (Auto) 13 % (10-50); Mean Corpuscular HGB Conc 32.1 g/dl (31.0-37.0); Mean Corpuscular Hemoglobin 29.8 pg (25.0-35.0); Mean Corpuscular Volume 93 fL (80-100); Monocytes # (Auto) 0.8 Thou/mm3 (0.0-0.8); Monocytes % (Auto) 6 % (0-12); Neutrophils # (Auto) 10.3 Thou/mm3 (1.8-7.7); Neutrophils % (Auto) 78 % (37-80); Nucleated Red Blood Cell % 0 /100 WBC (0); Platelet Count 157 Thou/mm3 (140-440); RDW Standard Deviation 55.3 fL (36.4-46.3); Red Blood Count 3.22 Miln/mm3 (4.00-5.20); White Blood Count 13.2 Thou/mm3 (3.6-11.0)
[2024-08-21 06:30] LABS: Albumin, Serum 3.8 gm/dL (3.4-4.8); Anion Gap 14 (7-16); BUN/Creatinine Ratio 16 Ratio (12-20); Blood Urea Nitrogen 41 mg/dL (9-23); Calcium 8.5 mg/dL (8.3-10.6); Calcium (Corrected) 8.7 mg/dL (8.5-10.1); Carbon Dioxide 23.4 mMol/L (20.0-31.0); Chloride 105 mMol/L (98-107); Creatinine (Component) 2.6 mg/dL (0.6-1.3); Glucose 95 mg/dL (74-106); Osmolality,Calculated 293 (275-295); Potassium 4.4 mMol/L (3.4-5.1); Sodium 142 mMol/L (136-145); eGFR 18 See Note
--- NOTE | 2024-08-21 08:55 | PD.RESPRO ---
Documentation for date of: 08/21/24 Subjective Subjective Interval history: Ms. Schultz is a 83-year-old female with a past medical history of atrial fibrillation/a flutter with RVR on Eliquis and metoprolol at home, CKD stage IV, hypertension, hypothyroidism and hyperlipidemia who was admitted to [facility] for evaluation of bradycardia as low as 29, onset yesterday around 830 pm. Pt reports never having the symptoms before. It is unsure if patient had taken additional metoprolol XL which is a home medicine for her, however patient's daughter had noticed that patient had began to feel weak and dizzy. Patient had put on pulse ox for her and and revealed that her heart rate was 29 which they immediately called EMS. Her marine rigger is Dr. Mello. It is noted that the patient has a history of atrial fibrillation and has been cardioverted this past July. Patient has recently become mainly bedbound and only gets up to go to the toilet. Family denies having any further workup for patient being bedbound and has not had imaging of her spine. She denies any recent travel or sick contacts. No other complaints at this time ED Course: In the ED, patient presented to us mildly hypertensive 135/57, bradycardia with heart rate of 28, respiratory of 12, afebrile satting 100 on room air. Pertinent lab findings included hemoglobin 10.9 MCV 93, platelet 136, BUN 62, creatinine 4.8, EGFR of 8, lactic acid 1.1, troponin 0.046, BNP of 272, lipase of 55 and chest x-ray showed low position of the right humeral head but no pneumonia or pulmonary edema. Patient was given atropine 1 mg x 2 and glucagon secondary to suspicion of beta-keila toxicity; however, patient's status did not improve that she required ICU admission for IV dopamine. Patient's blood pressure continued to soften at which point decision was made to insert central line in the right IJ along with right femoral arterial line. Upon completion of the procedures patient's blood pressure improved; however, patient's urine output has been minimal. Will attempt IV fluid resuscitation and monitor for improvement in kidney function. Cardiology has been consulted and are aware of the patient's status. 08/20/2024 patient currently seen in telemetry. Still seems to be very confused. Seen Dr. Vera's note. Blood pressure 153/89, heart rate 54. Hemoglobin 9.6. Sodium 144, potassium 4.1, BUN 48, creatinine 3.2, GFR 14. 08/22/2023 patient evaluated bedside, heart rate improved currently in sinus rhythm, no acute overnight tachycardia/bradycardia arrhythmias reported. Cardiology recommendations noted. Noted improvement in acute kidney injury, currently CKD stage IV. Sodium 142, potassium 4.4, BUN 41, creatinine 2.6, urine output 2000 mL overnight. Per daughter, patient has waxing and waning mental status, occasionally at home, but more pronounced during hospital stay. Likely hospital-acquired delirium. Can discontinue Rob's catheter. Patient is in good spirits, alert and oriented x 3. The patient is excited to go home. The patient can be discharged from nephrology standpoint, follow-up in Dr. Amador's office in 1 week. Exam Vital Signs Temp Pulse Resp BP Pulse Ox O2 Del Method 97.1 F 72 19 142/62 H 96 Room Air 08/21/24 08:00 08/21/24 08:00 08/21/24 08:00 08/21/24 08:00 08/21/24 08:00 08/21/24 08:00 Narrative Exam GENERAL APPEARANCE: Patient seems to be comfortable, adequately hydrated and nourished. HEENT: EOMI, PERRLA NECK: Neck supple, no JVD or bruit CARDIOVASCULAR: Heart regular, no murmurs LUNGS/CHEST: Chest clear to auscultation. No rales, rhonchi, wheezing ABDOMEN: Soft, nontender, nondistended. No masses. Normal bowel sounds. EXTREMITIES: No edema, clubbing or cyanosis. SKIN: Skin exam normal without any rashes MUSCULOSKELETAL: In bed NEUROLOGICAL : Alert and oriented. Objective Labs 08/22/24 08:34 08/22/24 04:50 Labs: Laboratory Results - last 24 hr 08/20/24 08/21/24 08/21/24 04:57 04:48 04:55 WBC 13.2 H RBC 3.22 L Hgb 9.6 L Hct 29.9 L MCV 93 MCH 29.8 MCHC 32.1 RDW Std Deviation 55.3 H Plt Count 157 Neut % (Auto) 78 Lymph % (Auto) 13 [place] % (Auto) 6 Eos % (Auto) 3 Baso % (Auto) 0 Neut # (Auto) 10.3 H Lymph # (Auto) 1.7 [place] # (Auto) 0.8 Eos # (Auto) 0.4 Baso # (Auto) 0.0 Immature Gran # (Auto) 0.06 H Absolute Nucleated RBC 0.00 Immature Gran % 1 H Nucleated RBC % 0 Sodium 142 Potassium 4.4 Chloride 105 Carbon Dioxide 23.4 Anion Gap 14 BUN 41 H Creatinine 2.6 H D Estim Creat Clear Calc 13.0 L eGFR 18 L BUN/Creatinine Ratio 16 Glucose 95 Calculated Osmolality 293 Calcium 8.5 Corrected Calcium 8.7 Phosphorus 3.0 Magnesium 2.0 Albumin 3.8 Hepatitis A IgM Ab Non Reactive Hep Bs Antigen Non Reactive Hep B Core IgM Ab Non Reactive Hepatitis C Antibody Non Reactive ABG Interpretation ABG results: 08/19/24 04:11 ABG pH 7.39 ABG pCO2 39 ABG pO2 69 L ABG HCO3 24 ABG O2 Saturation 95 ABG Base Excess -1 Quality Measures Quality Measures none Advance care planning discussed with:: patient Assessment & Plan Assessment Current Active Medications: Generic Name Dose Route Start Last Admin Trade Name Freq PRN Reason Stop Dose Admin Acetaminophen 650 mg 08/19/24 00:05 Acetaminophen 325 Mg Tablet PO 09/18/24 00:04 Q6H PRN PAIN OR FEVER > 101 Allopurinol 100 mg 08/20/24 10:00 08/20/24 10:28 Allopurinol 100 Mg Tablet PO 09/19/24 09:59 100 mg QDAY FEMI Administration Amlodipine Besylate 10 mg 08/20/24 12:30 08/20/24 12:51 Amlodipine Besylate 5 Mg Tablet PO 09/19/24 12:29 10 mg QDAY FEMI Administration Apixaban 2.5 mg 08/19/24 09:00 08/19/24 09:10 Apixaban 2.5 Mg Tablet PO 09/18/24 08:59 Not Given BID FEMI Atorvastatin Calcium 40 mg 08/20/24 21:00 08/20/24 20:22 Atorvastatin Calcium 20 Mg Tablet PO 09/19/24 20:59 40 mg HS FEMI Administration Calcitriol 0.25 mcg 08/20/24 10:00 08/20/24 10:28 Calcitriol 0.25 Mcg Capsule PO 09/19/24 09:59 0.25 mcg QDAY FEMI Administration Glucagon 1 mg 08/19/24 18:55 Glucagon Inj 1 Mg Vial IM Q15MIN PRN BG <70, and no IV access Levothyroxine Sodium 112 mcg 08/19/24 06:00 08/21/24 05:32 Levothyroxine Sodium 112 Mcg Tablet PO 09/18/24 05:59 112 mcg ACBR FEMI Administration Ondansetron HCl 4 mg 08/19/24 00:05 Ondansetron Inj 2 Mg/Ml Inj 2 Ml IV 09/18/24 00:04 Q6H PRN NAUSEA OR VOMITING Protocol Pantoprazole Sodium 40 mg 08/19/24 09:00 08/20/24 07:27 Pantoprazole Inj 40 Mg Vial IVP 09/18/24 08:59 40 mg QDAY FEMI Administration Pharmacy Consult 1 each 08/19/24 13:35 Pharmacy Renal Dose Adjustment 1 Ea XX 09/18/24 13:34 PRN PRN CONSULT Sennosides 2 tab 08/21/24 09:00 Senna Tablet PO 09/20/24 08:59 BID FEMI Protocol Vitamin B Complex/Vit C/Folic Acid 1 tab 08/19/24 12:15 08/20/24 07:27 Vit B12/Vit C/Fa (Nephrovite) Tablet PO 09/18/24 12:14 1 tab QDAY FEMI Administration Plan Patient is an 83-year-old female, past medical history of A-fib RVR, CKD, hypertension, CHF and hypothyroidism, was admitted to the hospital for symptomatic bradycardia. #Acute kidney injury on CKD stage IV?improving #Oliguria?resolved #Hyperphosphatemia Patient currently seems to be in ischemic ATN. MICHAEL could be due to lack of renal perfusion with bradycardia Pt currently off dopamine drip, we will see how patient improves with kidney function before starting diaylsis if needed Pt could of had overdose of metoprolol however we are unsure at this point, however, pt could be experiencing Tachybrady syndrome or Sick sinus syndrome waldemar considering her age and her hx of afib Underlying CKD does not seem to be from ischemic nephropathy. Possibility of hemodialysis with daughter was discussed if no improvement renal function, but noted improvement in renal function and adequate urine output. Plan: ? Rob can be removed, adequate urine output, ? Urine lytes and creatinine ? Trend CMP and lytes ? Strict GRACE's ? Avoid nephrotoxic agents ? Renally dose medicines #Symptomatic bradycardia-off dopamine. Came out of ICU. #History of A-fib RVR-off amiodarone, beta-blockers. #History of hypothyroidism #History of diabetes mellitus #Acute delirium #Nausea/vomiting #Elevated transaminases #Elevated troponin - Management per primary team. The patient can be discharged from nephrology standpoint, follow-up in Dr. Amador's office in 1 week. Plan of care discussed with attending Dr. Perry Raymond PGY 2 Attending Provider Attestation/Addendum Patient seen and examined with resident physician Dr. Raymond. Note reviewed, agree with findings and recommendations.
[2024-08-21] MEDS: PANTOPRAZOLE INJ 40 MG VIAL IVP (09:06)
[2024-08-21] MEDS: allopurinoL 100 MG TABLET PO (09:06)
[2024-08-21] MEDS: SENNA TABLET 2 TAB PO ×2 (09:07→20:56)
[2024-08-21] MEDS: CALCITRIOL 0.25 mCg CAPSULE PO (09:07)
[2024-08-21] MEDS: VIT B12/Vit C/FA (Nephrovite) TABLET 1 TAB PO (09:07)
[2024-08-21] MEDS: amLODIPine BESYLATE 5 MG TABLET 10 MG PO (09:08)
--- NOTE | 2024-08-21 10:53 | ESPR_ITS ---
Documentation for date of: 08/21/24 Subjective Subjective Interval history: No acute overnight events reported. Patient seen and examined at bedside this morning. Patient's daughter and are at bedside patient is more alert and oriented today she is able to introduce her daughter and as well as identify where she is time and place and to self. Total urine output in the last 24 hours is 2050 and this morning 450cc. Vitals are stable, heart rate is between 64 and 75. Labs are reviewed creatinine is improved to 2.6, GFR 18. Patient has no complaints she is resting comfortably daughter has brought her home medications who stated that patient might of taken double of some of her medications which she no longer will be dispensing herself. Due to bradycardia her home metoprolol has been on hold, will touch base with cardiology regarding restarting at a lower dose of metoprolol upon discharge. PT is ordered. Will continue to monitor today and anticipate discharge tomorrow. Exam Vital Signs Temp Pulse Resp BP Pulse Ox O2 Del Method 97.1 F 72 19 128/77 96 Room Air 08/21/24 08:00 08/21/24 09:08 08/21/24 08:00 08/21/24 09:08 08/21/24 08:00 08/21/24 08:00 Narrative Exam GENERAL: A&Ox3, elderly female, Awake, Not in acute distress, saturating on room air NEURO: no focal neurological deficits noted HEENT: Atraumatic, Normocephalic. mucous membranes moist. Eyes open, symmetrical, & clear HEART: Normal Heart Sounds LUNGS: Clear to auscultation with no wheezing or crackles. ABDOMEN: soft, non-distended, non-tender, bowel sounds heard, no guarding or rebound tenderness SKIN: No Rash or ecchymoses EXTREMITIES: No edema, tenderness, able to move all 4 extremities, pedal pulses palpated Objective Labs 08/21/24 04:48 08/21/24 04:48 Labs: Laboratory Results - last 24 hr 08/20/24 08/21/24 08/21/24 04:57 04:48 04:55 WBC 13.2 H RBC 3.22 L Hgb 9.6 L Hct 29.9 L MCV 93 MCH 29.8 MCHC 32.1 RDW Std Deviation 55.3 H Plt Count 157 Neut % (Auto) 78 Lymph % (Auto) 13 [place] % (Auto) 6 Eos % (Auto) 3 Baso % (Auto) 0 Neut # (Auto) 10.3 H Lymph # (Auto) 1.7 [place] # (Auto) 0.8 Eos # (Auto) 0.4 Baso # (Auto) 0.0 Immature Gran # (Auto) 0.06 H Absolute Nucleated RBC 0.00 Immature Gran % 1 H Nucleated RBC % 0 Sodium 142 Potassium 4.4 Chloride 105 Carbon Dioxide 23.4 Anion Gap 14 BUN 41 H Creatinine 2.6 H D Estim Creat Clear Calc 13.0 L eGFR 18 L BUN/Creatinine Ratio 16 Glucose 95 Calculated Osmolality 293 Calcium 8.5 Corrected Calcium 8.7 Phosphorus 3.0 Magnesium 2.0 Albumin 3.8 Hepatitis A IgM Ab Non Reactive Hep Bs Antigen Non Reactive Hep B Core IgM Ab Non Reactive Hepatitis C Antibody Non Reactive ABG Interpretation ABG results: 08/19/24 04:11 ABG pH 7.39 ABG pCO2 39 ABG pO2 69 L ABG HCO3 24 ABG O2 Saturation 95 ABG Base Excess -1 Quality Measures Quality Measures none Advance care planning discussed with:: child Assessment & Plan Assessment Current Active Medications: Generic Name Dose Route Start Last Admin Trade Name Freq PRN Reason Stop Dose Admin Acetaminophen 650 mg 08/19/24 00:05 Acetaminophen 325 Mg Tablet PO 09/18/24 00:04 Q6H PRN PAIN OR FEVER > 101 Allopurinol 100 mg 08/20/24 10:00 08/21/24 09:06 Allopurinol 100 Mg Tablet PO 09/19/24 09:59 100 mg QDAY FEMI Administration Amlodipine Besylate 10 mg 08/20/24 12:30 08/21/24 09:08 Amlodipine Besylate 5 Mg Tablet PO 09/19/24 12:29 10 mg QDAY FEMI Administration Apixaban 2.5 mg 08/19/24 09:00 08/19/24 09:10 Apixaban 2.5 Mg Tablet PO 09/18/24 08:59 Not Given BID FEIM Atorvastatin Calcium 40 mg 08/20/24 21:00 08/20/24 20:22 Atorvastatin Calcium 20 Mg Tablet PO 09/19/24 20:59 40 mg HS FEMI Administration Calcitriol 0.25 mcg 08/20/24 10:00 08/21/24 09:07 Calcitriol 0.25 Mcg Capsule PO 09/19/24 09:59 0.25 mcg QDAY FEMI Administration Glucagon 1 mg 08/19/24 18:55 Glucagon Inj 1 Mg Vial IM Q15MIN PRN BG <70, and no IV access Levothyroxine Sodium 112 mcg 08/19/24 06:00 08/21/24 05:32 Levothyroxine Sodium 112 Mcg Tablet PO 09/18/24 05:59 112 mcg ACBR FEMI Administration Ondansetron HCl 4 mg 08/19/24 00:05 Ondansetron Inj 2 Mg/Ml Inj 2 Ml IV 09/18/24 00:04 Q6H PRN NAUSEA OR VOMITING Protocol Pantoprazole Sodium 40 mg 08/22/24 09:00 Pantoprazole 40 Mg Tablet PO 09/21/24 08:59 QDAY FEMI Protocol Pharmacy Consult 1 each 08/19/24 13:35 Pharmacy Renal Dose Adjustment 1 Ea XX 09/18/24 13:34 PRN PRN CONSULT Sennosides 2 tab 08/21/24 09:00 08/21/24 09:07 Senna Tablet PO 09/20/24 08:59 2 tab BID FEMI Administration Protocol Vitamin B Complex/Vit C/Folic Acid 1 tab 08/19/24 12:15 08/21/24 09:07 Vit B12/Vit C/Fa (Nephrovite) Tablet PO 09/18/24 12:14 1 tab QDAY FEMI Administration Plan Ms. Schultz is a 83-year-old female, past medical history of A-fib RVR, CKD, hypertension, CHF and hypothyroidism, was admitted to the hospital for symptomatic bradycardia. She was admitted to ICU for dopamine drip, which subsequently was turned off 08/19/2024 and patient was downgraded to Telemetry. #MICHAEL on CKD stage IV #Hyperphosphatemia- resolved Patient has baseline CKD stage IV, now presented with acute on chronic kidney injury Likely secondary to bradycardia and hypotension causing prerenal MICHAEL. Phos 6.1 -> 6.3 NiCOM testing ordered top assess fluid responsiveness, showed >13% response. Possible ATN - Nephrology consulted and closely following - Will consider HD if pt's kidney function does not improve - IV fluid bolus, strict input and output monitoring, avoid nephrotoxic drugs - Sevelamer 800mg x1 ordered for Phos binding on 08/19 #Hospital delirium - improved #B/L LE weakness Patient was alert and oriented x 3 during initial evaluation in the ER, but later after transferring to ICU, patient became delirious had confused speech. No focal neurological deficit noted, moving all 4 extremities, less likely stroke. Likely acute delirium due to current hospitalization. - Continue frequent reorientation and family visitation - At baseline can only transfer herself from bed to chair. - PT ordered for further assessment of function #Symptomatic bradycardia, junctional rhythm- improved #History of A-fib w/ RVR Patient presented with HR 20s and dizziness, had weak feeble pulses, manual BP 80s systolic on admission and pulse high 20s --> was given atropine 0.5 mg x1 --> no improvement. Also received Glucagon 1 mg + 5 mg --> no response to glucagon --> Repeat atropine 1 mg showed slight improvement in heart rate to 32 bpm. She had a presentation with A-fib RVR requiring DC cardioversion and [facility] last month. Home medications include: metoprolol succinate 100 mg twice daily + amiodarone 200 mg twice daily + Eliquis 2.5 BID. Follows up with House Mover Supervisor Dr Mello outpatient. Patient was admitted to ICU, was started on dopamine drip, arterial line for accurate blood pressure measurement and right IJ central line placement for CVP measurement. Bedside ultrasound for IVC 2.1 cm Overnight patient was on Dopamine gtt, HR improved from 20s bpm junctional bradycardia around 2am to HR 40-50s bpm by 4am. - Hold metoprolol and amiodarone at this time. - Dopamine gtt was turned off around 4am. HR sustaining in the 50s- on 08/19 - Cardiology consulted, appreciate recommendations. - Downgraded to Tele, patient's home beta keila is held and dose adjusted levothyroxine. #Hypothyroidism TSH 5.26 - Increased levothyroxine 100mcg --> 112mcg qD #Normocytic anemia Hb 11.1 -> 10.5 and MCV 90s - patient is ESRD, may benefit from EPO - Consider Iv iron therapy. Will wait for cardiac clearance. - Started daily B12/FA supplementation Health maintenance: Disposition: telemetry for close monitoring of bradycardia DVT prophylaxis: Eliquis 2.5 BID -- on hold. SCDs until cardiac eval GI prophylaxis: Protonix 40 qD Diet: Dysphagia 2, mechanically altered Lines: PIV CODE STATUS: Full code Assessment and plan discussed with my attending physician Dr. Hai Batres (PGY-1)- Internal medicine resident Attending Provider Attestation/Addendum Face to face evaluation was performed by me. I have personally seen and examined the patient. I discussed the assessment and plan with the entire medicine team. I reviewed available medical records, imaging studies, laboratory results. I agree with the above subjective data, objective findings, assessment and plan except as corrected by me or noted below #Symptomatic bradycardia, junctional rhythm #History of A-fib w/ RVR # NSTEMI type 2 demand ischemia, do no suspect ACS # Hypothyroidism - was transferred out from the icu - required dopamine gtt, cardiology was consulted, continue to held b keila, monitor heart rate/rhythm closely. More than > 30 minutes spent on the encounter
--- NOTE | 2024-08-21 13:11 | PD.RESPRO ---
Documentation for date of: 08/21/24 Subjective Subjective Interval history: Patient is an 83-year-old female with a past medical history of atrial fibrillation (s/p cardioversion 07/13/2024), Moderate PAH, Hypertension, Hyperlipidemia, CKD stage IV, hypothyrodism, and Osteoarthritis, GERD. Patient initially re-admitted on 08/19/2024 with a chief complain of generalized weakness and dizziness with HR 20s. Patient was found to have junction rhythm, sinus, likely secondary to medication induce. 08/21/2024: Overnight, single episode of bradycardia with HR 54. Patinet overall has been in sinus rhythm with some occasional PVCs. P waves noted, regular rhythm with HR from 60-74. Patient has remained asymptomatic. Patient denied any chest pain, dyspnea, or palpitations. Patient's medication at bedside. Systolic BP for 08/21/2024 noted between 109-155 with average 127. Stop Amiodarone. Stop Losartan given MICHAEL on CKD. Metoprolol XL 50 mg qday. Monitor BP given amlodpine started by nephrology. Exam Vital Signs Temp Pulse Resp BP Pulse Ox O2 Del Method 97.0 F 70 16 109/62 95 Room Air 08/21/24 11:41 08/21/24 11:41 08/21/24 11:41 08/21/24 11:41 08/21/24 11:41 08/21/24 11:41 Narrative Exam General Appearance: Alert & Oriented X3, well-nourished female who is lying in bed in no acute distress HEENT: Skull symmetrical and atraumatic. Conjunctivae pink and moist. Pupils equal, round, reactive to light and accommodation (PERRL). External ear without lesion or discharge. Cardio: Normal Rate and Rhythm with S1 and S2 heart sounds. Possible holostystolic murmur noted on mitral area. . No bruits on carotid auscultation. No peripheral edema or cyanosis. Lungs: Symmetric with good expansion. Chest and back non-tender. Breath sounds vesicular without crackles, wheezing or rhonchi Abdomen: Non-tender, Non-distended, Normal Reactive Bowel Sounds Neuro: Alert, cooperative, oriented to person, place, and time. Speech clear. CN grossly intact. Upper motor strength 5/5 and Lower motor strength 5/5. Sensation intact. Objective Labs 08/22/24 08:34 08/22/24 04:50 Labs: Laboratory Results - last 24 hr 08/20/24 08/21/24 08/21/24 04:57 04:48 04:55 WBC 13.2 H RBC 3.22 L Hgb 9.6 L Hct 29.9 L MCV 93 MCH 29.8 MCHC 32.1 RDW Std Deviation 55.3 H Plt Count 157 Neut % (Auto) 78 Lymph % (Auto) 13 Twiggs % (Auto) 6 Eos % (Auto) 3 Baso % (Auto) 0 Neut # (Auto) 10.3 H Lymph # (Auto) 1.7 Twiggs # (Auto) 0.8 Eos # (Auto) 0.4 Baso # (Auto) 0.0 Immature Gran # (Auto) 0.06 H Absolute Nucleated RBC 0.00 Immature Gran % 1 H Nucleated RBC % 0 Sodium 142 Potassium 4.4 Chloride 105 Carbon Dioxide 23.4 Anion Gap 14 BUN 41 H Creatinine 2.6 H D Estim Creat Clear Calc 13.0 L eGFR 18 L BUN/Creatinine Ratio 16 Glucose 95 Calculated Osmolality 293 Calcium 8.5 Corrected Calcium 8.7 Phosphorus 3.0 Magnesium 2.0 Albumin 3.8 Hepatitis A IgM Ab Non Reactive Hep Bs Antigen Non Reactive Hep B Core IgM Ab Non Reactive Hepatitis C Antibody Non Reactive ABG Interpretation ABG results: 08/19/24 04:11 ABG pH 7.39 ABG pCO2 39 ABG pO2 69 L ABG HCO3 24 ABG O2 Saturation 95 ABG Base Excess -1 Quality Measures Quality Measures none Advance care planning discussed with:: patient Assessment & Plan Assessment Current Active Medications: Generic Name Dose Route Start Last Admin Trade Name Radha PRN Reason Stop Dose Admin Acetaminophen 650 mg 08/19/24 00:05 Acetaminophen 325 Mg Tablet PO 09/18/24 00:04 Q6H PRN PAIN OR FEVER > 101 Allopurinol 100 mg 08/20/24 10:00 08/21/24 09:06 Allopurinol 100 Mg Tablet PO 09/19/24 09:59 100 mg QDAY FEMI Administration Amlodipine Besylate 10 mg 08/20/24 12:30 08/21/24 09:08 Amlodipine Besylate 5 Mg Tablet PO 09/19/24 12:29 10 mg QDAY FEMI Administration Apixaban 2.5 mg 08/19/24 09:00 08/19/24 09:10 Apixaban 2.5 Mg Tablet PO 09/18/24 08:59 Not Given BID FEMI Atorvastatin Calcium 40 mg 08/20/24 21:00 08/20/24 20:22 Atorvastatin Calcium 20 Mg Tablet PO 09/19/24 20:59 40 mg HS FEMI Administration Calcitriol 0.25 mcg 08/20/24 10:00 08/21/24 09:07 Calcitriol 0.25 Mcg Capsule PO 09/19/24 09:59 0.25 mcg QDAY FEMI Administration Glucagon 1 mg 08/19/24 18:55 Glucagon Inj 1 Mg Vial IM Q15MIN PRN BG <70, and no IV access Levothyroxine Sodium 112 mcg 08/19/24 06:00 08/21/24 05:32 Levothyroxine Sodium 112 Mcg Tablet PO 09/18/24 05:59 112 mcg ACBR FEMI Administration Ondansetron HCl 4 mg 08/19/24 00:05 Ondansetron Inj 2 Mg/Ml Inj 2 Ml IV 09/18/24 00:04 Q6H PRN NAUSEA OR VOMITING Protocol Pantoprazole Sodium 40 mg 08/22/24 09:00 Pantoprazole 40 Mg Tablet PO 09/21/24 08:59 QDAY FEMI Protocol Pharmacy Consult 1 each 08/19/24 13:35 Pharmacy Renal Dose Adjustment 1 Ea XX 09/18/24 13:34 PRN PRN CONSULT Sennosides 2 tab 08/21/24 09:00 08/21/24 09:07 Senna Tablet PO 09/20/24 08:59 2 tab BID FEMI Administration Protocol Vitamin B Complex/Vit C/Folic Acid 1 tab 08/19/24 12:15 08/21/24 09:07 Vit B12/Vit C/Fa (Nephrovite) Tablet PO 09/18/24 12:14 1 tab QDAY FEMI Administration Plan Patient is an 83-year-old female with a past medical history of atrial fibrillation (s/p cardioversion 07/13/2024), Moderate PAH, Hypertension, Hyperlipidemia, CKD stage IV, hypothyrodism, and Osteoarthritis, GERD. Patient was admitted on 08/21/2024 for bradycardia, noted junction sinus rhythm. Cardiology consulted. #Asymptomatic severe bradycardia, junction rhythm, resolved #Paroxysmal Artrial fibrilaltion s/p cardioversion (07/13/2024) #Moderate Pulmonary Arterial Hypertension Patinet has a past medical history of Atrial fibrillation s/p cardioversion, who presented with severe bradycardia, likely iatrogenic in nature. CHEVY (07/13/2024): No LA or MEÑO thrombus. No PFO or ASD noted with bubble study. Normal LV size and function with an EF of 55 to 60%. Normal RV size and function. Mild TR.Moderate MR with systolic blunting of the pulmonary vein flow Moderate to severe LA dilatation. Significant left atrial and left A1c 5.7 TSH 5.26 Free T4 1.76 CHADSVASC 4 points HAS Bled 3 points Plan -Metoplolol 50 mg PO qday -Eliquis 2.5 mg BID -STOP Amiodarone and all other rate controlling meds including atenolol -Keep K >4 and Mg >2 -continue to monitor w/ tele box, monitor BP #MICHAEL on CKD stage IV, improving On admission, patient presented with worsening Cr at 4.2 (08/19/2024) now improving to 2.6 (08/21/2024). GFR 9 on admission-->18 GFR (08/21/2024). Paitnet likely pre-renal vs intrinisc kideny injury given BUN/Cr <20. None the less patient would benefit from urine electrolytes . Urine output (08/21/2024) 540/2050/1510 Renal US: Small kidneys with bilateral renal cortical thinning. Moderate bilateral renal parenchymal scar formation. Plan -Stop Losartan given MICHAEL on CKD -Per nephrology team, amlodipine started -Strict In and Outs -Avoid nephrotoxins -Renally dose medication -encourage oral hydration #Hypertension Zenaida has a past medical history of Hypertension. Patient previoulsy taking Losartan 50 mg qday. Plan -Given worsening MICHAEL on CKD, stop Losartan -On metoprolol XL. Amlodipine 10 mg PO qday, resumed by nephrology team -monitor BP. #Hyperlipidemia Past medical history of hyperlipidemia, home medication of simvastatin 40 mg PO HS. Lipid Panel: Triglycerides 101, Cholesterol 102, LDL 38, HDL 44 ASCVD: age non-applicable, continue statins. Plan Atorvastatin 40 mg PO HS Monitor liver function #Hypothyroidism Home medication of Levothyroxine 100 mcg qday. TSH on admission 5.26 (08/19/2024) and Free T4 1.76 (08/19/2024). Plan -Levothyroxine increase, Levothyroxine 112 mcg PO ACBR -Follow up with PCP or furnace repairer given changes in acute setting. #Leukocytosis likely reactive as no pneumonia noted on Cxr vs UTI but less likley as patient deneid urinary symptoms, continue to monitor. Plan -Continue to monitor WBC, symptoms, and temperature #Normocytic Anemia Normocytic anemia noted which has been present since 07/14/2024. Patient has had multiple hospital addmisisons. Likely in the setting of iron deficiency vs secondary to anmeia of chronic disease vs CKD given CKD stage IV. previous iron panle (03/18/2023): Iron 76, TIBC 242, Iron saturation 31, unsat iron 166 Plan -Continue to monitor hgb given eliquis use -Hgb >7 -consider repeat iron panel/Ferritin #History of Gout Caution with Allopruinol given MICHAEL on CKD #History of Osteoarthritis Health Maintenance: Disp: Pt is currently admitted to floors for further management of MICHAEL on CKD and bradycardia, cardiology consulted. Please have patient follow up with cardiology, Dr. Mello, within one week of discharge FEN: Dysphasia Diet 2 DVT: Eliquis 2.5 mg BID, consider adding compression device Code: Full Code - The patient's plan was discussed with attending Dr. Funmilayo Lewis MD PGY1 Internal Medicine Attending Provider Attestation/Addendum I have personally seen and examined the patient separately on the above date of service and discussed the plan of care with the resident. I reviewed the resident Dr. Benita Lewis consultation progress note and agree with the resident findings and plan in the note above and have also edited the documentation to reflect my findings and plan. Elijah Mello M.D. Interventional Cardiology
[2024-08-21] MEDS: METOPROLOL SUCCINATE XL 25 MG TABCR 50 MG PO (14:37)
--- NOTE | 2024-08-21 15:52 | PC.PT ---
PT eval received. Patient was wc bound and is non ambulatory for ~2years. As per daughter, patient's PLOF were able to transfer with S. Patient has alia lift at home just in case patient cannot transfer. Patient has wc and BC available as well. Patient has family available to assist the patient as needed. Daughter refused homehealth PT. No further needs at this time. Will cancel PT evaluation. Daughter verbalized understanding and is agreeable.
--- NOTE | 2024-08-21 17:09 | PC.SS ---
Rounding Note: Pending cardiology recommendations. Plan is to d/c tomorrow.
--- NOTE | 2024-08-21 17:18 | PC.SS ---
MARKET SUPERINTENDENT conducted bedside contact with the patient conduct initial assessment and to discuss discharge planning.? At bedside with patient was daughter, Edwina Antonio .? Daughter provided information for assessment and discharge planning.? Patient resides at home with daughter.? Patient utilizes a wheelchair to assist with mobility. Patient does not utilize home oxygen.? Patient requires assistance with the completion of ADL?s.? Daughter provides assistance with ADL?s and provide transportation on behalf of the patient.? Patient?s medical surrogate decision maker is daughter, Edwina Antonio.? Patient?s PCP is Dr. Amador.? Patient?s trade specialist is Dr. Muller.? ?Patient does not participate with dialysis.? ?Patient utilizes [facility] for medication services.? ?Plan is for the patient to return home at the time of discharge.? ?Family will provide transportation on behalf of the patient.? Daughter requesting wheelchair on behalf of the patient.? Current wheelchair provided by family member.? If home health recommended no preferred home health agency identified.? No further intervention required at this time, social contact worker will be available to address any further concerns.? ?? Next of Kin: Edwina Antonio D/C Plan: Home
[2024-08-21] MEDS: ATORVASTATIN CALCIUM 20 MG TABLET 40 MG PO (20:56)
[2024-08-22] VITALS (8 sets, daily range): BP systolic 123–146; BP diastolic 50–82; PULSE 63–72; RESP 14–96; TEMP 36.3–37.7; O2SAT 95–99; BMI 28.4
[2024-08-22] MEDS: LEVOTHYROXINE SODIUM 112 MCG TABLET PO (05:19)
[2024-08-22 06:01] LABS: Albumin, Serum 3.8 gm/dL (3.4-4.8); Anion Gap 8 (7-16); BUN/Creatinine Ratio 13 Ratio (12-20); Blood Urea Nitrogen 29 mg/dL (9-23); Calcium 8.8 mg/dL (8.3-10.6); Carbon Dioxide 25.9 mMol/L (20.0-31.0); Chloride 106 mMol/L (98-107); Creatinine (Component) 2.2 mg/dL (0.6-1.3); Estimated Creatinine Clearance 15.5 mL/min (>60); Glucose 110 mg/dL (74-106); Osmolality,Calculated 286 (275-295); Phosphorous 2.6 mg/dL (2.4-5.1); Potassium 4.4 mMol/L (3.4-5.1); Sodium 140 mMol/L (136-145); eGFR 22 See Note
--- NOTE | 2024-08-22 07:49 | PC.SS ---
Wheel Chairs Patients diagnosis creates mobility limitations that significantly impairs ability to participate in the patients activities of daily living either in their entirety, or in a reasonable time frame in the home and the patients mobility limitations can not be sufficiently resolved with an appropriately fitted cane or walker. Also the use of a manual wheelchair will sufficiently improve patient?s ability to participate in the activities of daily living in the home and the patient is willing to use the wheelchair that is provided in the home. The patient has some one in the home that is available, willing and able to provide assistance with the wheelchair.
--- NOTE | 2024-08-22 07:49 | PC.SS ---
Following DME requested: wheelchair. Authorization will be required. Patient possesses [employer] coverage, vendor will be [employer].
[2024-08-22] MEDS: VIT B12/Vit C/FA (Nephrovite) TABLET 1 TAB PO (08:09)
[2024-08-22] MEDS: CALCITRIOL 0.25 mCg CAPSULE PO (08:09)
[2024-08-22] MEDS: allopurinoL 100 MG TABLET PO (08:10)
[2024-08-22] MEDS: METOPROLOL SUCCINATE XL 25 MG TABCR 50 MG PO (08:10)
[2024-08-22] MEDS: SENNA TABLET 2 TAB PO (08:10)
[2024-08-22] MEDS: PANTOPRAZOLE 40 MG TABLET PO (08:11)
--- NOTE | 2024-08-22 08:43 | ESPR_ITS ---
Documentation for date of: 08/22/24 Subjective Subjective Interval history: Patient is an 83-year-old female with a past medical history of atrial fibrillation (s/p cardioversion 07/13/2024), Moderate PAH, Hypertension, Hyperlipidemia, CKD stage IV, hypothyrodism, and Osteoarthritis, GERD. Patient initially re-admitted on 08/19/2024 with a chief complain of generalized weakness and dizziness with HR 20s. Patient was found to have junction rhythm, sinus, likely secondary to medication induce. 08/21/2024: Overnight, single episode of bradycardia with HR 54. Patinet overall has been in sinus rhythm with some occasional PVCs. P waves noted, regular rhythm with HR from 60-74. Patient has remained asymptomatic. Patient denied any chest pain, dyspnea, or palpitations. Patient's medication at bedside. Systolic BP for 08/21/2024 noted between 109-155 with average 127. Stop Amiodarone. Stop Losartan given MICHAEL on CKD. Metoprolol XL 50 mg qday. Monitor BP given amlodipine started by nephrology. 08/22/2024: No overnight events.Patient examined at bedside this morning. Patient is alert and orientated x3. Patient denied chest pain, dyspnea, and denied palpitations. Patient spO2 98% on 1 L NC. Sinus rhythm noted on tele monitor w/ HR 64. Discharge patient on Amlodipine 5 mg qday and Metoprolol Succinate 50 mg qday. Exam Vital Signs Temp Pulse Resp BP Pulse Ox O2 Del Method O2 Flow Rate 97.3 F 68 20 123/67 98 Nasal Cannula 1 08/22/24 08:00 08/22/24 08:10 08/22/24 08:00 08/22/24 08:10 08/22/24 08:00 08/22/24 08:00 08/22/24 08:00 Narrative Exam General Appearance: Alert & Oriented X3, well-nourished female who is lying in bed in no acute distress HEENT: Skull symmetrical and atraumatic. Conjunctivae pink and moist. Pupils equal, round, reactive to light and accommodation (PERRL). External ear without lesion or discharge. Cardio: Normal Rate and Rhythm with S1 and S2 heart sounds. Possible holostystolic murmur noted on mitral area. . No bruits on carotid auscultation. No peripheral edema or cyanosis. Lungs: Symmetric with good expansion. Chest and back non-tender. Breath sounds vesicular without crackles, wheezing or rhonchi Abdomen: Non-tender, Non-distended, Normal Reactive Bowel Sounds Neuro: Alert, cooperative, oriented to person, place, and time. Speech clear. CN grossly intact. Upper motor strength 5/5 and Lower motor strength 5/5. Sensation intact. Objective Labs 08/22/24 08:34 08/22/24 04:50 Labs: Laboratory Results - last 24 hr 08/22/24 04:50 Sodium 140 Potassium 4.4 Chloride 106 Carbon Dioxide 25.9 Anion Gap 8 BUN 29 H Creatinine 2.2 H Estim Creat Clear Calc 15.5 L eGFR 22 L BUN/Creatinine Ratio 13 Glucose 110 H Calculated Osmolality 286 Calcium 8.8 Corrected Calcium 9.0 Phosphorus 2.6 Albumin 3.8 ABG Interpretation ABG results: 08/19/24 04:11 ABG pH 7.39 ABG pCO2 39 ABG pO2 69 L ABG HCO3 24 ABG O2 Saturation 95 ABG Base Excess -1 Quality Measures Quality Measures none Advance care planning discussed with:: patient Assessment & Plan Assessment Current Active Medications: Generic Name Dose Route Start Last Admin Trade Name Freq PRN Reason Stop Dose Admin Acetaminophen 650 mg 08/19/24 00:05 Acetaminophen 325 Mg Tablet PO 09/18/24 00:04 Q6H PRN PAIN OR FEVER > 101 Allopurinol 100 mg 08/20/24 10:00 08/22/24 08:10 Allopurinol 100 Mg Tablet PO 09/19/24 09:59 100 mg QDAY FEMI Administration Amlodipine Besylate 10 mg 08/20/24 12:30 08/21/24 09:08 Amlodipine Besylate 5 Mg Tablet PO 09/19/24 12:29 10 mg QDAY FEMI Administration Apixaban 2.5 mg 08/19/24 09:00 08/19/24 09:10 Apixaban 2.5 Mg Tablet PO 09/18/24 08:59 Not Given BID FEMI Atorvastatin Calcium 40 mg 08/20/24 21:00 08/21/24 20:56 Atorvastatin Calcium 20 Mg Tablet PO 09/19/24 20:59 40 mg HS FEMI Administration Calcitriol 0.25 mcg 08/20/24 10:00 08/22/24 08:09 Calcitriol 0.25 Mcg Capsule PO 09/19/24 09:59 0.25 mcg QDAY FEMI Administration Glucagon 1 mg 08/19/24 18:55 Glucagon Inj 1 Mg Vial IM Q15MIN PRN BG <70, and no IV access Levothyroxine Sodium 112 mcg 08/19/24 06:00 08/22/24 05:19 Levothyroxine Sodium 112 Mcg Tablet PO 09/18/24 05:59 112 mcg ACBR FEMI Administration Metoprolol Succinate 50 mg 08/22/24 09:00 08/22/24 08:10 Metoprolol Succinate Xl 25 Mg Tabcr PO 09/21/24 08:59 50 mg QDAY FEMI Administration Ondansetron HCl 4 mg 08/19/24 00:05 Ondansetron Inj 2 Mg/Ml Inj 2 Ml IV 09/18/24 00:04 Q6H PRN NAUSEA OR VOMITING Protocol Pantoprazole Sodium 40 mg 08/22/24 09:00 08/22/24 08:11 Pantoprazole 40 Mg Tablet PO 09/21/24 08:59 40 mg QDAY FEMI Administration Protocol Pharmacy Consult 1 each 08/19/24 13:35 Pharmacy Renal Dose Adjustment 1 Ea XX 09/18/24 13:34 PRN PRN CONSULT Sennosides 2 tab 08/21/24 09:00 08/22/24 08:10 Senna Tablet PO 09/20/24 08:59 2 tab BID FEMI Administration Protocol Vitamin B Complex/Vit C/Folic Acid 1 tab 08/19/24 12:15 08/22/24 08:09 Vit B12/Vit C/Fa (Nephrovite) Tablet PO 09/18/24 12:14 1 tab QDAY FEMI Administration Plan Patient is an 83-year-old female with a past medical history of atrial fibrillation (s/p cardioversion 07/13/2024), Moderate PAH, Hypertension, Hyperlipidemia, CKD stage IV, hypothyrodism, and Osteoarthritis, GERD. Patient was admitted on 08/21/2024 for bradycardia, noted junction sinus rhythm. Cardiology consulted. #Asymptomatic severe bradycardia, junction rhythm, resolved #Paroxysmal Artrial fibrilaltion s/p cardioversion (07/13/2024) #Moderate Pulmonary Arterial Hypertension Patinet has a past medical history of Atrial fibrillation s/p cardioversion, who presented with severe bradycardia, likely iatrogenic in nature. CHEVY (07/13/2024): No LA or MEÑO thrombus. No PFO or ASD noted with bubble study. Normal LV size and function with an EF of 55 to 60%. Normal RV size and function. Mild TR.Moderate MR with systolic blunting of the pulmonary vein flow Moderate to severe LA dilatation. Significant left atrial and left A1c 5.7 TSH 5.26 Free T4 1.76 CHADSVASC 4 points HAS Bled 3 points Plan -Metoplolol 50 mg PO qday for now -Eliquis 2.5 mg BID -STOP Amiodarone -Keep K >4 and Mg >2 -continue to monitor w/ tele box, monitor BP #MICHAEL on CKD stage IV, improving On admission, patient presented with worsening Cr at 4.2 (08/19/2024) now improving to 2.6 (08/21/2024). GFR 9 on admission-->18 GFR (08/21/2024). Paitnet likely pre-renal vs intrinisc kideny injury given BUN/Cr <20. None the less patient would benefit from urine electrolytes . Urine output (08/21/2024) 540/0/1510 Renal US: Small kidneys with bilateral renal cortical thinning. Moderate bilateral renal parenchymal scar formation. Plan -Stop Losartan given MICHAEL on CKD -Per nephrology team, amlodipine started -Strict In and Outs -Avoid nephrotoxins -Renally dose medication -encourage oral hydration #Hypertension Zenaida has a past medical history of Hypertension. Patient previoulsy taking Losartan 50 mg qday. Plan -Given worsening MICHAEL on CKD, stop Losartan -Amlodipine 10 mg PO qday, resumed by nephrology team, please reduce Amlodipine to 5 mg qday upon discharge and can be titrated later after appropriate rate control with metoprolol XL - Metoprolol XL resumed as well. #Hyperlipidemia Past medical history of hyperlipidemia, home medication of simvastatin 40 mg PO HS. Lipid Panel: Triglycerides 101, Cholesterol 102, LDL 38, HDL 44 ASCVD: age non-applicable, continue statins. Plan Atorvastatin 40 mg PO HS Monitor liver function #Hypothyroidism Home medication of Levothyroxine 100 mcg qday. TSH on admission 5.26 (08/19/2024) and Free T4 1.76 (08/19/2024). Plan -Levothyroxine increase, Levothyroxine 112 mcg PO ACBR -Follow up with PCP or wholesale loan processor given changes in acute setting. #Leukocytosis likely reactive as no pneumonia noted on Cxr vs UTI but less likley as patient deneid urinary symptoms, continue to monitor. Plan -Continue to monitor WBC, symptoms, and temperature #Normocytic Anemia Normocytic anemia noted which has been present since 07/14/2024. Patient has had multiple hospital addmisisons. Likely in the setting of iron deficiency vs secondary to anmeia of chronic disease vs CKD given CKD stage IV. previous iron panle (03/18/2023): Iron 76, TIBC 242, Iron saturation 31, unsat iron 166 Plan -Continue to monitor hgb given eliquis use -Hgb >7 -consider repeat iron panel/Ferritin #History of Gout Caution with Allopruinol given MICHAEL on CKD #History of Osteoarthritis Health Maintenance: Disp: Pt is currently admitted to floors for further management of MICHAEL on CKD and bradycardia, cardiology consulted. Please have patient follow up with cardiology, Dr. Mello, within one week of discharge FEN: Dysphasia Diet 2 DVT: Eliquis 2.5 mg BID, consider adding compression device Code: Full Code - The patient's plan was discussed with attending Dr. Funmilayo Lewis MD PGY1 Internal Medicine Attending Provider Attestation/Addendum I have personally seen and examined the patient separately on the above date of service and discussed the plan of care with the resident. I reviewed the resident Dr. Benita Lewis consultation progress note and agree with the resident findings and plan in the note above and have also edited the documentation to reflect my findings and plan. Elijah Mello M.D. Interventional Cardiology
[2024-08-22 08:55] LABS: Basophils % (Auto) 0 % (0-2.5); Eosinophils # (Auto) 0.2 Thou/mm3 (0.0-0.5); Eosinophils % (Auto) 1 % (0-10); Hematocrit 30.5 % (36.0-46.0); Immature Granulocytes % (Auto) 1 % (0-0); Immature Granulocytes Auto 0.08 Thou/mm3 (0.00-0.00); Lymphocytes # (Auto) 1.8 Thou/mm3 (1.0-4.8); Lymphocytes % (Auto) 13 % (10-50); Mean Corpuscular HGB Conc 32.8 g/dl (31.0-37.0); Mean Corpuscular Hemoglobin 30.4 pg (25.0-35.0); Mean Corpuscular Volume 93 fL (80-100); Monocytes # (Auto) 0.9 Thou/mm3 (0.0-0.8); Monocytes % (Auto) 7 % (0-12); Neutrophils # (Auto) 10.9 Thou/mm3 (1.8-7.7); Neutrophils % (Auto) 78 % (37-80); Nucleated Red Blood Cell % 0 /100 WBC (0); Platelet Count 152 Thou/mm3 (140-440); RDW Standard Deviation 56.1 fL (36.4-46.3); Red Blood Count 3.29 Miln/mm3 (4.00-5.20); White Blood Count 13.9 Thou/mm3 (3.6-11.0)
[2024-08-22 09:14] LABS: Magnesium 1.9 mg/dL (1.6-2.6)
--- NOTE | 2024-08-22 09:55 | PC.SS ---
WheelChairs Patients diagnosis creates mobility limitations that significantly impairs ability to participate in the patient?s activities of daily living either in their entirety, or in a reasonable time frame in the home and the patient?s mobility limitations can not be sufficiently resolved with an appropriately fitted cane or walker. Also the use of a manual wheelchair will sufficiently improve patient?s ability to participate in the activities of daily living in the home and the patient is willing to use the wheelchair that is provided in the home. The patient has some one in the home that is available, willing and able to provide assistance with the wheelchair
--- NOTE | 2024-08-22 09:57 | PC.SS ---
Addendum entered by Odette Hair 08/22/24 14:37: SS met with daughter who explained she refused Home Health Services when pt first was first hospitalized but was unaware pt would be hospitalized for few days. Dtr is now agreeable for pt to d/c with Home Health. Dtr is aware physician is ordering HH for PT. Dtr states she will picking supervisor wheelchair at [facility] in [place]. Original Note: SS has met with pt, dtr, and regarding Home Health options. SS provided family with the [facility] which has HH choices. Pt and family do not have preference and are aware patient's health insurance is contracted with [facility]. Pt and family are agreeable to utilize [facility]. Per dtr, pt was established with PCP, Dr. Amador in June, which was her last office visit. Pt had phone visit with PCP on Wednesday. SS has sent DME order for wheelchair to [employer] due to being contracted with patient's health insurance. Pt and family are agreeable to utilize [employer]. Dtr is aware to follow up with [employer]. Dtr will provide transportation home.
--- NOTE | 2024-08-22 10:01 | PC.NURSE ---
at bedside with dr nichols zipper slide attacher. Per ok to dc today and follow up in 1 wk. Pts daughter and at bedside and agreed to f/u.
--- NOTE | 2024-08-22 10:13 | PC.NURSE ---
Dc fc per order. Pending void for discharge per MD orders.
[2024-08-22] MEDS: MAGNESIUM OXIDE 400 MG TABLET 800 MG PO (10:15)
--- NOTE | 2024-08-22 10:51 | ESDS_ITS ---
Planned Discharge Date 08/22/24 DS: Providers Provider Date of admission: 08/19/24 00:05 Primary care physician: Ria Amador MD Admitting Provider: Sameer Dunn MD Attending Provider on Admission: Atif Valles MD Consults: 08/18/24 23:26 Consult to Cardiology Stat Comment: Consulting Provider: Jayleen Mandujano 08/19/24 05:44 Consult to Nephrology Urgent Comment: Consulting Provider: Ria Amador Attending Provider on DC: Paresh Batres MD Discharging Provider: Paresh Batres MD DS: Diagnosis Problem List Completed Was Problem List Reviewed/Reconciled?: Yes Hospital Course Hospital Course Hospital course: Ms. Schultz is a 83-year-old female with a past medical history of atrial fibrillation/a flutter with RVR on Eliquis, amiodarone and metoprolol at home, CKD stage IV, hypertension, hypothyroidism , Gout and hyperlipidemia presented to [facility] ED on 08/18/24 with episode of generalized weakness, dizziness and heart rate of 20s. In the ED patient was given atropine as well as glucagon due to suspicion of beta-keila toxicity however patient's bradycardia did not improve therefore patient was admitted to the ICU for dopamine drip and cardiology was consulted. During hospital admission patient was also found to have MICHAEL on CKD therefore nephrology was consulted. Patient was off of the dobutamine drip and downgraded to telemetry floor on 08/19/2024 for further monitoring. Patient was continued on telemetry monitoring and continued to be in sinus rhythm and her bradycardia resolved. Pe r cardiolody and nephrology recommendations collectively changes in medications have been made and have been explained to the patient and daughter at bedside. Although patient has history of A-fib she has been rate controlled therefore per cardio recommendation will decrease metoprolol dose to 50 mg once daily and discontinue amiodarone. Since patient's hospitalization metoprolol was held due to bradycardia therefore amlodipine was started during hospitalization for hypertension however once the metoprolol was resumed patient's blood pressure was within normal limits therefore will discontinue amlodipine. Patient's daughter and patient have been educated and informed to continue to monitor blood pressure and keep a daily record and if the systolic blood pressure is above 140 to call primary care to start patient on a second agent. Patient does have history of CKD stage IV however during hospitalization patient had worsening creatinine, which has down trended to patient's baseline creatinine. Patient is advised to follow-up with primary care as well as neighborhood service center director Dr. Amador within 1 week after discharge. Patient is also advised to follow-up with account representative Dr. Mello within 2 weeks after discharge. During hospitalization PT evaluation was ordered, as patient is wheelchair-bound and non-ambulatory for the past 2 years. However patient's daughter refused home health physical therapy therefore evaluation was canceled because daughter stated patient has family available at all times to assist the patient. Patient is hemodynamically stable, tolerating oral diet, mentation is at baseline and labs and telemetry is reviewed and ready to be discharged to home with family to self-care. Hospitalization Diagnosis #MICHAEL on CKD stage IV #Hyperphosphatemia- resolved #Hospital delirium - improved #B/L LE weakness #Symptomatic bradycardia, junctional rhythm- improved #History of A-fib w/ RVR #Hypothyroidism #Gout #Normocytic anemia Assessment and plan discussed with my attending physician Dr. Hai Batres (PGY-1)- Internal medicine resident Time Spent with Patient Time attestation: Total time spent providing and/or coordinating discharge services: Time spent: Greater than 30 minutes Exam Vital Signs Temp Pulse Resp BP Pulse Ox O2 Del Method O2 Flow Rate 97.3 F 68 20 123/67 98 Nasal Cannula 1 08/22/24 08:00 08/22/24 08:10 08/22/24 08:00 08/22/24 08:10 08/22/24 08:00 08/22/24 08:00 08/22/24 08:00 Narrative Exam GENERAL: A&Ox3, elderly female, Awake, Not in acute distress, saturating on room air NEURO: no focal neurological deficits noted HEENT: Atraumatic, Normocephalic. mucous membranes moist. Eyes open, symmetrical, & clear HEART: Normal Heart Sounds LUNGS: Clear to auscultation with no wheezing or crackles. ABDOMEN: soft, non-distended, non-tender, bowel sounds heard, no guarding or rebound tenderness SKIN: No Rash or ecchymoses EXTREMITIES: No edema, tenderness, able to move all 4 extremities, pedal pulses palpated Discharge Plan Plan Patient Disposition: HOME (Self Care) Patient condition on transfer: Stable Care Plan Goals: -Follow up with PCP within 1 week of discharge -Follow up with neighborhood service center director Dr. Amador and account representative Dr. Mello within 2 weeks after discharge -Take the newly dosed adjusted medications as prescribed during this hospital admission -Continue rest of medications as previously prescribed -Return to the ED or call EMS if symptoms return and/or worsen Prescriptions/Referrals Prescriptions/Med Rec: New levothyroxine 112 mcg Tablet 112 mcg PO ACBR 30 Days Qty: 30 0RF metoprolol succinate 50 mg tablet extended release 24 hr 50 mg PO QDAY 30 Days Qty: 30 0RF Nephro-Samira 0.8 mg Tablet 1 tab PO QDAY 30 Days Qty: 30 0RF Continued calcitriol 0.25 mcg capsule 0.25 mcg PO QDAY Patient Comments: TAKE 1 CAPSULE BY MOUTH EVERY DAY Jardiance 25 mg tablet 25 mg PO QDAY Patient Comments: TAKE 1 TABLET BY MOUTH EVERY DAY IN THE MORNING allopurinol 100 mg tablet 100 mg PO QDAY Patient Comments: TAKE 1 TABLET BY MOUTH EVERY DAY FOR GOUT simvastatin 40 mg Tablet 40 mg PO QPM apixaban 2.5 mg tablet 2.5 mg PO BID 30 Days Qty: 60 3RF Discontinued cephalexin 500 mg capsule 500 mg PO TID Qty: 21 0RF furosemide 40 mg tablet 40 mg PO DAILY Patient Comments: TAKE 1 TABLET BY MOUTH EVERY DAY metoprolol tartrate 100 mg tablet 100 mg PO BID Patient Comments: TAKE 1 TABLET BY MOUTH TWICE A DAY WITH MEALS amiodarone 200 mg tablet 200 mg PO BID Patient Comments: TAKE 1 TABLET BY MOUTH TWICE A DAY FOR 90 DAYS furosemide [Lasix] 20 mg tablet 40 mg PO QAM losartan 50 mg tablet 50 mg PO QDAY Patient Comments: TAKE 1 TABLET BY MOUTH EVERY DAY clonidine HCl 0.3 mg Tablet 0.3 mg PO BID levothyroxine 100 mcg Tablet 100 mcg PO QDAY Rx Instructions: bottle states 112 mcg per day. allopurinol 300 mg Tablet 300 mg PO QDAY atenolol 50 mg Tablet 50 mg PO BID metoprolol tartrate 50 mg tablet 50 mg PO Q12H 30 Days Qty: 60 2RF ciprofloxacin HCl [Cipro] 500 mg tablet 500 mg PO BID Qty: 14 0RF Referrals: Ria Amador MD [Primary Care Provider] - Patient/Caregiver Discharge Instructions Education Materials: Checking Your Own Blood Pressure, Preventing Falls Moving Safely ..., Preventing Falls Make Your ..., Blood Pressure Check Steps, Understanding Bradycardia Print Language: Thai Stand Alone Forms: Darby Award Info., Patient Portal Info Letter Discharge Order Discharge Orders: Discharge (Routine); Ordered 08/22/24 Ordered By: Paresh Batres Quality Discharge Quality Measures VTE prophylaxis Attestestation Attestation Face to face evaluation was performed by me. I have personally seen and examined the patient. I discussed the assessment and plan with the entire medicine team. I reviewed available medical records, imaging studies, laboratory results. I agree with the above subjective data, objective findings, assessment and plan except as corrected by me or noted below Symptomatic bradycardia History of atrial fibrillation History of chronic kidney disease CKD stage IV patient was resumed on metoprolol succinate just half the dose which is 50 mg daily, Amlodipine to be held for now as her blood pressure already normalized with current regimen, patient and family aware to monitor blood pressure closely and call PCP or nephrology if blood pressure is running high above 140s systolic. Patient to follow-up with cardiology, nephrology and PCP after discharge. They declined home health and PT More than > 30 minutes spent on the encounter
--- NOTE | 2024-08-22 15:11 | PD.RESPRO ---
Documentation for date of: 08/22/24 Subjective Subjective Interval history: Ms. Schultz is a 83-year-old female with a past medical history of atrial fibrillation/a flutter with RVR on Eliquis and metoprolol at home, CKD stage IV, hypertension, hypothyroidism and hyperlipidemia who was admitted to [facility] for evaluation of bradycardia as low as 29, onset yesterday around 830 pm. Pt reports never having the symptoms before. It is unsure if patient had taken additional metoprolol XL which is a home medicine for her, however patient's daughter had noticed that patient had began to feel weak and dizzy. Patient had put on pulse ox for her and and revealed that her heart rate was 29 which they immediately called EMS. Her button cutting machine operator is Dr. Mello. It is noted that the patient has a history of atrial fibrillation and has been cardioverted this past July. Patient has recently become mainly bedbound and only gets up to go to the toilet. Family denies having any further workup for patient being bedbound and has not had imaging of her spine. She denies any recent travel or sick contacts. No other complaints at this time ED Course: In the ED, patient presented to us mildly hypertensive 135/57, bradycardia with heart rate of 28, respiratory of 12, afebrile satting 100 on room air. Pertinent lab findings included hemoglobin 10.9 MCV 93, platelet 136, BUN 62, creatinine 4.8, EGFR of 8, lactic acid 1.1, troponin 0.046, BNP of 272, lipase of 55 and chest x-ray showed low position of the right humeral head but no pneumonia or pulmonary edema. Patient was given atropine 1 mg x 2 and glucagon secondary to suspicion of beta-keila toxicity; however, patient's status did not improve that she required ICU admission for IV dopamine. Patient's blood pressure continued to soften at which point decision was made to insert central line in the right IJ along with right femoral arterial line. Upon completion of the procedures patient's blood pressure improved; however, patient's urine output has been minimal. Will attempt IV fluid resuscitation and monitor for improvement in kidney function. Cardiology has been consulted and are aware of the patient's status. 08/20/2024 patient currently seen in telemetry. Still seems to be very confused. Seen Dr. Vera's note. Blood pressure 153/89, heart rate 54. Hemoglobin 9.6. Sodium 144, potassium 4.1, BUN 48, creatinine 3.2, GFR 14. 08/22/2023 patient evaluated bedside, heart rate improved currently in sinus rhythm, no acute overnight tachycardia/bradycardia arrhythmias reported. Cardiology recommendations noted. Noted improvement in acute kidney injury, currently CKD stage IV. Sodium 142, potassium 4.4, BUN 41, creatinine 2.6, urine output 2000 mL overnight. Per daughter, patient has waxing and waning mental status, occasionally at home, but more pronounced during hospital stay. Likely hospital-acquired delirium. Can discontinue Rob's catheter. Patient is in good spirits, alert and oriented x 3. The patient is excited to go home. The patient can be discharged from nephrology standpoint, follow-up in Dr. Amador's office in 1 week. 08/23/2023, patient evaluated at bedside, no acute overnight events reported, heart rate within normal limits, patient is excited to go home, can be discharged from nephrology standpoint, final disposition per primary team. Exam Vital Signs Temp Pulse Resp BP Pulse Ox O2 Del Method O2 Flow Rate 97.7 F 63 14 125/50 L 95 Room Air 1 08/22/24 11:56 08/22/24 12:00 08/22/24 11:56 08/22/24 11:56 08/22/24 11:56 08/22/24 11:56 08/22/24 08:00 Narrative Exam GENERAL APPEARANCE: Patient seems to be comfortable, adequately hydrated and nourished. HEENT: EOMI, PERRLA NECK: Neck supple, no JVD or bruit CARDIOVASCULAR: Heart regular, no murmurs LUNGS/CHEST: Chest clear to auscultation. No rales, rhonchi, wheezing ABDOMEN: Soft, nontender, nondistended. No masses. Normal bowel sounds. EXTREMITIES: No edema, clubbing or cyanosis. SKIN: Skin exam normal without any rashes MUSCULOSKELETAL: In bed NEUROLOGICAL : Alert and oriented. Objective Labs 08/22/24 08:34 08/22/24 04:50 Labs: Laboratory Results - last 24 hr 08/22/24 08/22/24 04:50 08:34 WBC 13.9 H RBC 3.29 L Hgb 10.0 L Hct 30.5 L MCV 93 MCH 30.4 MCHC 32.8 RDW Std Deviation 56.1 H Plt Count 152 Neut % (Auto) 78 Lymph % (Auto) 13 [place] % (Auto) 7 Eos % (Auto) 1 Baso % (Auto) 0 Neut # (Auto) 10.9 H Lymph # (Auto) 1.8 [place] # (Auto) 0.9 H Eos # (Auto) 0.2 Baso # (Auto) 0.0 Immature Gran # (Auto) 0.08 H Absolute Nucleated RBC 0.00 Immature Gran % 1 H Nucleated RBC % 0 Sodium 140 Potassium 4.4 Chloride 106 Carbon Dioxide 25.9 Anion Gap 8 BUN 29 H Creatinine 2.2 H Estim Creat Clear Calc 15.5 L eGFR 22 L BUN/Creatinine Ratio 13 Glucose 110 H Calculated Osmolality 286 Calcium 8.8 Corrected Calcium 9.0 Phosphorus 2.6 Magnesium 1.9 Albumin 3.8 ABG Interpretation ABG results: 08/19/24 04:11 ABG pH 7.39 ABG pCO2 39 ABG pO2 69 L ABG HCO3 24 ABG O2 Saturation 95 ABG Base Excess -1 Quality Measures Quality Measures VTE prophylaxis Advance care planning discussed with:: patient Assessment & Plan Assessment Current Active Medications: Generic Name Dose Route Start Last Admin Trade Name Freq PRN Reason Stop Dose Admin Acetaminophen 650 mg 08/19/24 00:05 Acetaminophen 325 Mg Tablet PO 09/18/24 00:04 Q6H PRN PAIN OR FEVER > 101 Allopurinol 100 mg 08/20/24 10:00 08/22/24 08:10 Allopurinol 100 Mg Tablet PO 09/19/24 09:59 100 mg QDAY FEMI Administration Amlodipine Besylate 10 mg 08/20/24 12:30 08/21/24 09:08 Amlodipine Besylate 5 Mg Tablet PO 09/19/24 12:29 10 mg QDAY FEMI Administration Apixaban 2.5 mg 08/19/24 09:00 08/19/24 09:10 Apixaban 2.5 Mg Tablet PO 09/18/24 08:59 Not Given BID FEMI Atorvastatin Calcium 40 mg 08/20/24 21:00 08/21/24 20:56 Atorvastatin Calcium 20 Mg Tablet PO 09/19/24 20:59 40 mg HS FEMI Administration Calcitriol 0.25 mcg 08/20/24 10:00 08/22/24 08:09 Calcitriol 0.25 Mcg Capsule PO 09/19/24 09:59 0.25 mcg QDAY FEMI Administration Glucagon 1 mg 08/19/24 18:55 Glucagon Inj 1 Mg Vial IM Q15MIN PRN BG <70, and no IV access Levothyroxine Sodium 112 mcg 08/19/24 06:00 08/22/24 05:19 Levothyroxine Sodium 112 Mcg Tablet PO 09/18/24 05:59 112 mcg ACBR FEMI Administration Metoprolol Succinate 50 mg 08/22/24 09:00 08/22/24 08:10 Metoprolol Succinate Xl 25 Mg Tabcr PO 09/21/24 08:59 50 mg QDAY FEMI Administration Ondansetron HCl 4 mg 08/19/24 00:05 Ondansetron Inj 2 Mg/Ml Inj 2 Ml IV 09/18/24 00:04 Q6H PRN NAUSEA OR VOMITING Protocol Pantoprazole Sodium 40 mg 08/22/24 09:00 08/22/24 08:11 Pantoprazole 40 Mg Tablet PO 09/21/24 08:59 40 mg QDAY FEMI Administration Protocol Pharmacy Consult 1 each 08/19/24 13:35 Pharmacy Renal Dose Adjustment 1 Ea XX 09/18/24 13:34 PRN PRN CONSULT Sennosides 2 tab 08/21/24 09:00 08/22/24 08:10 Senna Tablet PO 09/20/24 08:59 2 tab BID FEMI Administration Protocol Vitamin B Complex/Vit C/Folic Acid 1 tab 08/19/24 12:15 08/22/24 08:09 Vit B12/Vit C/Fa (Nephrovite) Tablet PO 09/18/24 12:14 1 tab QDAY FEMI Administration Plan Patient is an 83-year-old female, past medical history of A-fib RVR, CKD, hypertension, CHF and hypothyroidism, was admitted to the hospital for symptomatic bradycardia. #Acute kidney injury on CKD stage IV?improving #Oliguria?resolved #Hyperphosphatemia Patient currently seems to be in ischemic ATN. MICHAEL could be due to lack of renal perfusion with bradycardia Pt currently off dopamine drip, we will see how patient improves with kidney function before starting diaylsis if needed Pt could of had overdose of metoprolol however we are unsure at this point, however, pt could be experiencing Tachybrady syndrome or Sick sinus syndrome waldemar considering her age and her hx of afib Underlying CKD does not seem to be from ischemic nephropathy. Possibility of hemodialysis with daughter was discussed if no improvement renal function, but noted improvement in renal function and adequate urine output. Plan: ? Rob can be removed, adequate urine output, ? Urine lytes and creatinine ? Trend CMP and lytes ? Strict GRACE's ? Avoid nephrotoxic agents ? Renally dose medicines #Symptomatic bradycardia-off dopamine. Came out of ICU. #History of A-fib RVR-off amiodarone, beta-blockers. #History of hypothyroidism #History of diabetes mellitus #Acute delirium #Nausea/vomiting #Elevated transaminases #Elevated troponin - Management per primary team. The patient can be discharged from nephrology standpoint, follow-up in Dr. Amador's office in 1 week. Plan of care discussed with attending Dr. Perry Raymond PGY 2 Attending Provider Attestation/Addendum Patient seen and examined with resident physician Dr. Raymond. Note reviewed, agree with findings and recommendations.
--- NOTE | 2024-08-23 07:43 | PC.CM ---
Addendum entered by Jamie Rodriguez RN 08/23/24 10:19: [facility] accepted and booked. SOC 08/24 Addendum entered by Jamie Rodriguez RN 08/23/24 10:17: [facility], ref sent to [facility]. waiting for response Original Note: pt has [employer], ref sent to [facility], waiting for response
== END 2024-08-22 14:45 | disposition home health service (06) | DRG 308 ==
LOC: SERX 23:50 → SERHOLD 08-19 01:02 → S2SX 08-19 01:52 → S2NX 08-21 06:16
PROVIDERS: Student in an Organized Health Care Education/Training Program; Admitting Provider Student in an Organized Health Care Education/Training Program; Emergency Provider Emergency Medicine; PCP Internal Medicine; Visit Provider Internal Medicine
DX: R00.1 Bradycardia, unspecified (principal); N17.0 Acute kidney failure with tubular necrosis; I13.0 Hypertensive heart and chronic kidney disease with heart failure and stage 1 through stage 4 chronic kidney disease, or unspecified chronic kidney disease; N18.4 Chronic kidney disease, stage 4 (severe); F05 Delirium due to known physiological condition; I50.9 Heart failure, unspecified; I48.0 Paroxysmal atrial fibrillation; M10.9 Gout, unspecified; E03.9 Hypothyroidism, unspecified; E11.22 Type 2 diabetes mellitus with diabetic chronic kidney disease; E78.00 Pure hypercholesterolemia, unspecified; E83.39 Other disorders of phosphorus metabolism; I25.10 Atherosclerotic heart disease of native coronary artery without angina pectoris; I48.92 Unspecified atrial flutter; I49.2 Junctional premature depolarization; I49.3 Ventricular premature depolarization; I27.21 Secondary pulmonary arterial hypertension; N27.1 Small kidney, bilateral; M19.90 Unspecified osteoarthritis, unspecified site; I49.5 Sick sinus syndrome; D72.829 Elevated white blood cell count, unspecified; Z79.899 Other long term (current) drug therapy; R11.2 Nausea with vomiting, unspecified; Z74.01 Bed confinement status; D63.1 Anemia in chronic kidney disease; I95.9 Hypotension, unspecified; Z79.01 Long term (current) use of anticoagulants; Z79.890 Hormone replacement therapy; Z99.3 Dependence on wheelchair; R53.1 Weakness
CPT/HCPCS: 36415; 36600; 70450; 71045; 80048; 80053; 80061; 80069; 80074; 80076; 81001; 82803; 83605; 83690; 83735; 83880; 84100; 84439; 84443; 84484; 85025; 85610; 85730; 86580; 87081; 93005; 96361; 96374; 96375; 96376; 99291; A4314; J0461; J1265; J1611; J2250; J2405; J2470; J7030; J7040; J7120; A9270

== ENCOUNTER → 2024-10-31 | Outpatient (CLI) | payer OTHER, SELFPAY ==
[2024-10-31 11:17] LABS: Collection Type, Urine Clean Catch
[2024-10-31 11:50] LABS: Basophils # (Auto) 0.1 Thou/mm3 (0.0-0.2); Basophils % (Auto) 1 % (0-2.5); Eosinophils # (Auto) 1.6 Thou/mm3 (0.0-0.5); Eosinophils % (Auto) 18 % (0-10); Hematocrit 30.1 % (36.0-46.0); Hemoglobin 9.7 g/dL (12.0-16.0); Immature Granulocytes Auto 0.05 Thou/mm3 (0.00-0.00); Lymphocytes # (Auto) 2.2 Thou/mm3 (1.0-4.8); Lymphocytes % (Auto) 25 % (10-50); Mean Corpuscular HGB Conc 32.2 g/dl (31.0-37.0); Mean Corpuscular Hemoglobin 32.0 pg (25.0-35.0); Mean Corpuscular Volume 99 fL (80-100); Monocytes # (Auto) 0.5 Thou/mm3 (0.0-0.8); Monocytes % (Auto) 6 % (0-12); Neutrophils # (Auto) 4.5 Thou/mm3 (1.8-7.7); Neutrophils % (Auto) 51 % (37-80); Nucleated Red Blood Cell # 0.00 Thou/mm3 (0.00-0.00); Nucleated Red Blood Cell % 0 /100 WBC (0); Platelet Count 200 Thou/mm3 (140-440); RDW Standard Deviation 58.4 fL (36.4-46.3); Red Blood Count 3.03 Miln/mm3 (4.00-5.20); White Blood Count 8.9 Thou/mm3 (3.6-11.0)
[2024-10-31 11:57] LABS: Parathyroid Hormone Intact 71.0 pg/ml (18.5-88.0)
[2024-10-31 12:00] LABS: Bacteria,Urine 1+; Bilirubin,Urine Negative (Negative); Blood,Urine Trace (Negative); Clarity,Urine Turbid (Clear/Hazy); Color,Urine Lt-Yellow (Lt Yel-Yel); Glucose, Urine Trace (Negative); Hyaline Casts,Urine < 1 /hpf (0-1); Ketones,Urine Negative (Negative); Leukocyte Esterase,Urine Positive (Negative); Nitrite,Urine Positive (Negative); PH,Urine 6.0 (5.0-7.0); Protein,Urine 1+ (Neg - Trace); RBC,Urine 3 /hpf (0-3); Specific Gravity,Urine 1.014 (1.001-1.035); Squamous Epithelial Cell,Urine 3 /hpf (0-5); Urobilinogen,Urine Negative mg/dL (0.0-1.0); WBC,Urine 247 /hpf (0-5)
[2024-10-31 12:08] LABS: Alanine Aminotransferase 27 U/L (10-49); Albumin, Serum 4.0 gm/dL (3.4-4.8); Alkaline Phosphatase 83 U/L (46-116); Anion Gap 14 (7-16); Aspartate Amino Transferase 29 U/L (0-34); BUN/Creatinine Ratio 17 Ratio (12-20); Bilirubin,Direct 0.2 mg/dL (0.0-0.3); Bilirubin,Total 0.6 mg/dL (0.3-1.2); Blood Urea Nitrogen 54 mg/dL (9-23); Calcium 9.7 mg/dL (8.3-10.6); Carbon Dioxide 26.0 mMol/L (20.0-31.0); Chloride 107 mMol/L (98-107); Creatinine (Component) 3.2 mg/dL (0.6-1.3); Glucose 86 mg/dL (74-106); Osmolality,Calculated 306 (275-295); Phosphorous 4.9 mg/dL (2.4-5.1); Potassium 4.0 mMol/L (3.4-5.1); Sodium 147 mMol/L (136-145); Total Protein 6.4 gm/dL (5.7-8.2); eGFR 14 See Note
== END | disposition home or self-care (01) ==
LOC: COPL 09:53
PROVIDERS: PCP Internal Medicine; Referring Provider Internal Medicine; Visit Provider Internal Medicine
DX: I12.9 Hypertensive chronic kidney disease with stage 1 through stage 4 chronic kidney disease, or unspecified chronic kidney disease (principal); N18.4 Chronic kidney disease, stage 4 (severe)
CPT/HCPCS: 36415; 80048; 80076; 81001; 83970; 84100; 85025

== ENCOUNTER → 2024-11-30 | Outpatient (CLI) | payer OTHER, SELFPAY ==
[2024-11-30 10:26] LABS: Basophils # (Auto) 0.1 Thou/mm3 (0.0-0.2); Basophils % (Auto) 1 % (0-2.5); Eosinophils # (Auto) 2.0 Thou/mm3 (0.0-0.5); Eosinophils % (Auto) 22 % (0-10); Hematocrit 30.1 % (36.0-46.0); Hemoglobin 9.6 g/dL (12.0-16.0); Immature Granulocytes Auto 0.03 Thou/mm3 (0.00-0.00); Lymphocytes # (Auto) 2.3 Thou/mm3 (1.0-4.8); Lymphocytes % (Auto) 25 % (10-50); Mean Corpuscular HGB Conc 31.9 g/dl (31.0-37.0); Mean Corpuscular Hemoglobin 31.5 pg (25.0-35.0); Mean Corpuscular Volume 99 fL (80-100); Monocytes # (Auto) 0.6 Thou/mm3 (0.0-0.8); Monocytes % (Auto) 6 % (0-12); Neutrophils # (Auto) 4.3 Thou/mm3 (1.8-7.7); Neutrophils % (Auto) 47 % (37-80); Nucleated Red Blood Cell # 0.00 Thou/mm3 (0.00-0.00); Nucleated Red Blood Cell % 0 /100 WBC (0); Platelet Count 182 Thou/mm3 (140-440); RDW Standard Deviation 53.6 fL (36.4-46.3); Red Blood Count 3.05 Miln/mm3 (4.00-5.20); White Blood Count 9.2 Thou/mm3 (3.6-11.0)
[2024-11-30 10:47] LABS: Albumin, Serum 4.2 gm/dL (3.4-4.8); Anion Gap 13 (7-16); BUN/Creatinine Ratio 23 Ratio (12-20); Blood Urea Nitrogen 71 mg/dL (9-23); Calcium 9.7 mg/dL (8.3-10.6); Calcium (Corrected) 9.7 mg/dL (8.5-10.1); Carbon Dioxide 28.2 mMol/L (20.0-31.0); Chloride 107 mMol/L (98-107); Creatinine (Component) 3.1 mg/dL (0.6-1.3); Glucose 101 mg/dL (74-106); Osmolality,Calculated 315 (275-295); Phosphorous 5.3 mg/dL (2.4-5.1); Potassium 4.6 mMol/L (3.4-5.1); Sodium 148 mMol/L (136-145); Thyroid Stimulating Hormone 0.29 uIU/mL (0.55-4.78); eGFR 14 See Note
== END | disposition home or self-care (01) ==
LOC: COPL 09:12
PROVIDERS: PCP Internal Medicine; Referring Provider Internal Medicine; Visit Provider Internal Medicine
DX: N17.9 Acute kidney failure, unspecified (principal); E03.9 Hypothyroidism, unspecified
CPT/HCPCS: 36415; 80069; 84443; 85025

== ENCOUNTER 2024-12-12 14:35 | Observation (INO) | payer OTHER, SELFPAY ==
[2024-12-12 14:50] VITALS: BP 163/88; PULSE 58; RESP 22; TEMP 36.2; O2SAT 98
[2024-12-12 15:34] VITALS: RESP 99
[2024-12-12 16:00] VITALS: BP 137/79; PULSE 57; PULSE 61; RESP 22; TEMP 36.2; O2SAT 94
[2024-12-12 16:05] LABS: Basophils # (Auto) 0.1 Thou/mm3 (0.0-0.2); Basophils % (Auto) 1 % (0-2.5); Eosinophils # (Auto) 2.0 Thou/mm3 (0.0-0.5); Eosinophils % (Auto) 22 % (0-10); Hematocrit 30.1 % (36.0-46.0); Hemoglobin 9.6 g/dL (12.0-16.0); Immature Granulocytes Auto 0.03 Thou/mm3 (0.00-0.00); Lymphocytes # (Auto) 2.3 Thou/mm3 (1.0-4.8); Lymphocytes % (Auto) 25 % (10-50); Mean Corpuscular HGB Conc 31.9 g/dl (31.0-37.0); Mean Corpuscular Hemoglobin 31.5 pg (25.0-35.0); Mean Corpuscular Volume 99 fL (80-100); Monocytes # (Auto) 0.6 Thou/mm3 (0.0-0.8); Monocytes % (Auto) 7 % (0-12); Neutrophils # (Auto) 4.3 Thou/mm3 (1.8-7.7); Neutrophils % (Auto) 46 % (37-80); Nucleated Red Blood Cell # 0.00 Thou/mm3 (0.00-0.00); Nucleated Red Blood Cell % 0 /100 WBC (0); Platelet Count 184 Thou/mm3 (140-440); RDW Standard Deviation 53.1 fL (36.4-46.3); Red Blood Count 3.05 Miln/mm3 (4.00-5.20); White Blood Count 9.3 Thou/mm3 (3.6-11.0)
[2024-12-12 16:18] LABS: INR 1.0 (0.9-1.3); Partial Thromboplastin Time 33.8 Seconds (22.0-36.0); Prothrombin Time 11.0 Seconds (9.0-12.2)
[2024-12-12 16:20] LABS: Albumin, Serum 4.1 gm/dL (3.4-4.8); Anion Gap 10 (7-16); BUN/Creatinine Ratio 16 Ratio (12-20); Blood Urea Nitrogen 50 mg/dL (9-23); Calcium 9.4 mg/dL (8.3-10.6); Calcium (Corrected) 9.4 mg/dL (8.5-10.1); Carbon Dioxide 28.7 mMol/L (20.0-31.0); Chloride 105 mMol/L (98-107); Creatinine (Component) 3.1 mg/dL (0.6-1.3); Glucose 117 mg/dL (74-106); Osmolality,Calculated 301 (275-295); Phosphorous 5.0 mg/dL (2.4-5.1); Potassium 3.8 mMol/L (3.4-5.1); Sodium 144 mMol/L (136-145); eGFR 14 See Note
--- NOTE | 2024-12-12 16:40 | EKG_ITS ---
[facility] Test Date: 2024-12-12 Pat Name: IVAN LOPEZ Department: Room: S261A Gender: Female Trim Technician: KENDRA DUBOSEB: 1940 Requested By: Dakotah Julien Order Number: [id number] Reading MD: Dakotah Julien Measurements Intervals Coker Rate: 57 P: [place]: QRS: 75 QRSD: 153 T: 51 QT: 494 QTc: 485 Interpretive Statements ATRIAL FIBRILLATION WITH SLOW VENTRICULAR RESPONSE RIGHT BUNDLE BRANCH BLOCK Compared to ECG 08/19/2024 17:58:32 Sinus bradycardia no longer present Sinus arrhythmia no longer present /store/S0/[id number].pdf
--- NOTE | 2024-12-12 16:40 | XR_ITS ---
EXAMINATION: AP chest single view TECHNIQUE: Portable sitting AP chest single view Date and time: December 12, 2024, 1701 hours, comparison August 19, 2024 INDICATIONS: Chest pressure today. FINDINGS: Mild enlargement cardiac contour Mild to moderate elevation right hemidiaphragm. Mild vascular congestion. IMPRESSION: Mild vascular congestion. Consider right shoulder films follow-up to exclude anterior subcoracoid shoulder dislocation
--- NOTE | 2024-12-12 16:44 | ESHP_ITS ---
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 Amador, after outpatient labs revealed worsening renal function. She reports no active complaints today and states she ?feels fine.? She denies shortness of breath, chest pain, palpitations, nausea, vomiting, abdominal pain, dysuria, or leg swelling. She is alert and oriented ? 3 and questions why hospitalization is necessary. Recent outpatient labs from 11/30/24 showed BUN 71, Cr 3.1 (GFR 14), phosphorus 5.3, Na 148, and TSH 0.29. Repeat CMP today is pending. CBC shows Hgb 9.6 (stable), platelets 184, WBC 9.3. Given recurrent MICHAEL on CKD IV and cardiorenal physiology with previous CHF decompensations, she is being admitted for further management and possible dialysis initiation. Review of Systems: ROS otherwise negative. Past Medical History * Atrial fibrillation / flutter * Congestive heart failure * Chronic kidney disease stage IV * Hypertension * Hyperlipidemia * Hypothyroidism * Gout Past Surgical History * None significant reported Medications (from prior discharge) pending med recs * Metoprolol succinate 50 mg PO daily * Apixaban 2.5 mg PO BID * Jardiance 25 mg PO daily (hold for MICHAEL) * Losartan 50 mg PO daily (hold for MICHAEL) * Allopurinol 100 mg PO daily (hold for MICHAEL) * Calcitriol * Levothyroxine? * Simvastatin 40 mg PO nightly * Nephro-Samira PO daily Allergies * NKDA Social History * Never smoker * No alcohol or illicit drug use * Lives with family, wheelchair-bound for mobility Exam Narrative Exam General: Elderly female, alert and cooperative, in no acute distress HEENT: NC/AT, mucous membranes moist, PERRLA Neck: No JVD, no lymphadenopathy Cardiac: Irregularly irregular, no murmurs/rubs/gallops, no S3/S4 Lungs: Clear to auscultation bilaterally, no wheezes or crackles Abdomen: Soft, non-tender, non-distended, BS present Extremities: No edema, no cyanosis or clubbing Neuro: A&O?3, moving all extremities, no focal deficits Skin: Warm, dry, intact, no rashes Psych: Appropriate affect and thought process Results: Labs 12/13/24 05:47 12/13/24 05:47 Labs: Short CBC 12/12/24 Range/Units 15:54 WBC 9.3 (3.6-11.0) Thou/mm3 Hgb 9.6 L (12.0-16.0) g/dL Hct 30.1 L (36.0-46.0) % Plt Count 184 (140-440) Thou/mm3 BMP 12/12/24 15:54 Sodium 144 Potassium 3.8 Chloride 105 Carbon Dioxide 28.7 BUN 50 H Creatinine 3.1 H Glucose 117 H Calcium 9.4 Liver Function 12/12/24 Range/Units 15:54 Albumin 4.1 (3.4-4.8) gm/dL Quality Measures Quality Measures VTE prophylaxis Advance care planning discussed with:: patient, spouse and child Medications Home Medications and Allergies Home Medications ?Medication ?Instructions ?Recorded ?Confirmed ?Type simvastatin 40 mg tablet 40 mg PO QPM 12/26/22 History calcitriol 0.25 mcg capsule 0.25 mcg PO QDAY 08/19/24 12/12/24 History allopurinol 100 mg tablet 100 mg PO QDAY 08/21/2409/29 History B complex-vitamin C-folic acid See Rx Instructions PO DAILY 12/12/24 12/12/24 History ferrous sulfate 325 mg (65 mg 325 mg PO DAILY 12/12/24 12/12/24 History iron) tablet levothyroxine 112 mcg tablet 112 mcg PO DAILY 12/12/24 12/12/24 History metoprolol succinate 50 mg 50 mg PO DAILY 12/12/2409/29 History tablet,extended release 24 hr Allergies Allergy/AdvReac Type Severity Reaction Status Date / Time No Known Allergies Allergy Verified 08/18/24 20:38 Visit Medications Discontinued Medications Tuberculin PPD (Tuberculin Ppd Inj 5 Unit/0.1 Ml Dose) 5 unit ID X1 ONE Stop: 12/12/24 15:35 Assessment & Plan Plan 83-year-old female with CKD IV, recurrent MICHAEL, and cardiorenal physiology with history of CHF and A-fib, admitted for evaluation of worsening renal function and likely need for dialysis initiation. Patient is currently euvolemic, asymptomatic, and hemodynamically stable. # Acute Kidney Injury on CKD Likely progression of CKD vs prerenal from recurrent cardiorenal physiology. Euvolemic currently; no uremic symptoms. Plan: * Continue to monitor renal function (daily CMP, Mg, Phos) * Avoid nephrotoxins (hold losartan, Jardiance, allopurinol, NSAIDs) * Strict I&O, daily weights * IR consulted for dialysis catheter placement * Nephrology (Dr. Amador) following for dialysis initiation decision * Monitor urine output and electrolytes closely # Heart Failure, unspecified Stable, euvolemic BNP and CXR pending to assess congestion. Plan: * Continue cardiac diet * Hold diuretics unless overloaded * Continue metoprolol 50 mg daily * Daily weights and fluid restriction 1.5 L / day * Consider Cardiology to follow for optimization # Atrial Fibrillation Rate controlled on metoprolol; on anticoagulation. Plan: * Continue apixaban 2.5 mg BID (monitor renal dosing) * Continue metoprolol 50 mg daily if still taking (pending med recs) * Continuous telemetry monitoring * ordered EKG # Hypothyroidism Stable, asymptomatic. Plan: * Continue levothyroxine home med * Recheck TSH / free T4 outpatient in 4-6 weeks # Anemia of Chronic Kidney Disease Stable Hgb 9.6, normocytic. Plan: * Monitor CBC daily * Iron studies pending * Consider RANGEL if persistent # Hyperuricemia / History of Gout Asymptomatic. Plan: * Hold allopurinol during MICHAEL * Resume once renal function stabilizes # Hyperlipidemia Plan: * Continue simvastatin 40 mg nightly Health Maintenance: DVT prophylaxis: Heparin SQ GI prophylaxis: Protonix Disposition: Admit to medicine, monitor for renal replacement need Code status: Full ----- Plan discussed with attending physician Dr. Perry Julien MD PGY-1 Internal Medicine Attending Provider Attestation/Addendum Patient seen and examined with resident physician Dr. Adams. Note reviewed, agree with findings and recommendations. Admitted with MICHAEL. If no improvement in renal function plan for dialysis tomorrow. Patient and family agreed.
[2024-12-12 17:06] LABS: Uric Acid 8.5 mg/dL (3.1-7.8)
[2024-12-12 17:10] LABS: Iron 74 mcg/dL (50-170); Percent Iron Saturation 29 % (20-55); Total Iron Binding Capacity 252 mcg/dL (250-425); Unsaturated Iron Binding 178 (225-295)
[2024-12-12 17:14] LABS: B-Type Natriuretic Peptide 305 pg/mL (0-100)
[2024-12-12 17:31] LABS: Hepatitis A Antibody IgM Non Reactive (Non React); Hepatitis B Core Antibody IgM Non Reactive (Non React); Hepatitis B Surface Antigen Non Reactive (Non React); Hepatitis C Antibody Non Reactive (Non React)
[2024-12-12] MEDS: TUBERCULIN PPD INJ 5 UNIT/0.1 ML DOSE ID (17:47)
[2024-12-12 19:46] VITALS: BP 155/73; PULSE 58; RESP 20; TEMP 36.1; O2SAT 96
[2024-12-12 20:00] VITALS: PULSE 58
[2024-12-12 20:02] VITALS: PULSE 78; RESP 15; RESP 98
[2024-12-12] MEDS: HEPARIN SOD INJ 5000 UNIT/ML VIAL SC (21:01)
[2024-12-13] VITALS: BP 160/76; PULSE 59; PULSE 60; RESP 12; TEMP 36.2; O2SAT 97
[2024-12-13 04:00] VITALS: BP 146/71; PULSE 60; PULSE 61; RESP 15; TEMP 36.1; O2SAT 96
[2024-12-13 06:01] LABS: Basophils # (Auto) 0.1 Thou/mm3 (0.0-0.2); Basophils % (Auto) 1 % (0-2.5); Eosinophils # (Auto) 2.0 Thou/mm3 (0.0-0.5); Eosinophils % (Auto) 22 % (0-10); Hematocrit 29.7 % (36.0-46.0); Hemoglobin 9.8 g/dL (12.0-16.0); Immature Granulocytes Auto 0.03 Thou/mm3 (0.00-0.00); Lymphocytes # (Auto) 2.3 Thou/mm3 (1.0-4.8); Lymphocytes % (Auto) 24 % (10-50); Mean Corpuscular HGB Conc 33.0 g/dl (31.0-37.0); Mean Corpuscular Hemoglobin 32.0 pg (25.0-35.0); Mean Corpuscular Volume 97 fL (80-100); Monocytes # (Auto) 0.6 Thou/mm3 (0.0-0.8); Monocytes % (Auto) 7 % (0-12); Neutrophils # (Auto) 4.4 Thou/mm3 (1.8-7.7); Neutrophils % (Auto) 47 % (37-80); Nucleated Red Blood Cell # 0.00 Thou/mm3 (0.00-0.00); Nucleated Red Blood Cell % 0 /100 WBC (0); Platelet Count 171 Thou/mm3 (140-440); RDW Standard Deviation 51.6 fL (36.4-46.3); Red Blood Count 3.06 Miln/mm3 (4.00-5.20); White Blood Count 9.4 Thou/mm3 (3.6-11.0)
[2024-12-13 06:25] LABS: Alanine Aminotransferase 45 U/L (10-49); Albumin, Serum 4.1 gm/dL (3.4-4.8); Albumin/Globulin Ratio 1.6 (1.2-2.2); Alkaline Phosphatase 82 U/L (46-116); Anion Gap 9 (7-16); Aspartate Amino Transferase 38 U/L (0-34); BUN/Creatinine Ratio 15 Ratio (12-20); Bilirubin,Total 0.6 mg/dL (0.3-1.2); Blood Urea Nitrogen 41 mg/dL (9-23); Calcium 9.5 mg/dL (8.3-10.6); Calcium (Corrected) 9.5 mg/dL (8.5-10.1); Carbon Dioxide 28.7 mMol/L (20.0-31.0); Chloride 106 mMol/L (98-107); Creatinine (Component) 2.8 mg/dL (0.6-1.3); Globulin 2.6 gm/dL (2.3-3.5); Glucose 94 mg/dL (74-106); Magnesium 2.4 mg/dL (1.6-2.6); Osmolality,Calculated 296 (275-295); Phosphorous 4.5 mg/dL (2.4-5.1); Potassium 3.8 mMol/L (3.4-5.1); Sodium 144 mMol/L (136-145); Total Protein 6.7 gm/dL (5.7-8.2); eGFR 16 See Note
[2024-12-13 08:00] VITALS: BP 132/81; PULSE 67; PULSE 76; RESP 14; TEMP 36.4; O2SAT 93
--- NOTE | 2024-12-13 10:40 | PC.SS ---
RECEIVING WEIGHER conducted bedside contact with the patient conduct initial assessment and to discuss discharge planning.? At bedside with patient was daughter, Edwina Antonio .? Information obtained from patient?s daughter.? Patient resides at home with family.? Patient utilizes a walker to assist with mobility. ?Patient does not utilize home oxygen.? Patient possesses the ability to complete ADL?s independently.? Patient?s medical surrogate decision maker is daughter, Edwina Antonio.? Patient?s PCP is Dr. Amador.? Patient?s human services assistant is Dr. Mello.? Patient does not participate with dialysis.? Patient utilizes [facility] for medication services.? Plan is for the patient to return home at the time of discharge.? ??Family will provide transportation on behalf of the patient.? No further discharge needs identified by the patient.? No further intervention required at this time, addiction social worker will be available to address any further concerns.? Next of Kin: Edwinael Antonio D/C Plan: Home
--- NOTE | 2024-12-13 11:22 | PD.RESDS ---
Planned Discharge Date 12/13/24 DS: Providers Provider Date of admission: 12/12/24 14:35 Primary care physician: Ria Amador MD Admitting Provider: Ria Amador MD Attending Provider on Admission: Ria Amador MD Attending Provider on DC: Ria Amador MD Discharging Provider: Dakotah Julien MD DS: Diagnosis Problem List Completed Was Problem List Reviewed/Reconciled?: Yes Hospital Course Hospital Course Hospital course: Ms. Schultz, an 83-year-old female with atrial fibrillation on Eliquis, CKD stage IV, hypertension, CHF, hypothyroidism, hyperlipidemia, and gout, was admitted after outpatient labs showed worsening renal function. On admission she was euvolemic, asymptomatic, and hemodynamically stable. Initial labs revealed BUN 71, Cr 3.1 (GFR 14), BNP 305, uric acid 8.5. Nephrology was consulted for possible dialysis. She was managed conservatively with renal-dose medication adjustments, strict I&O, and close monitoring. Renal function improved (Cr 3.1 -> 2.8; GFR 14 -> 16) without evidence of uremia or volume overload, and dialysis was not required. Medication changes included adjusting Lasix to every other day, continuing allopurinol for hyperuricemia, and discontinuing Jardiance. The patient remained stable and was deemed appropriate for discharge home with close outpatient follow-up. Diagnosis during admission: #Acute kidney injury, resolving #Chronic kidney disease #Chronic heart failure, stable #Atrial fibrillation, rate controlled #Hypothyroidism #Hyperlipidemia #Hyperuricemia / Gout #Anemia of chronic kidney disease Discharge instructions: -Take all medications as prescribed. -Take Lasix 40 mg every other day (not daily). -Continue allopurinol 100 mg daily for high uric acid. -Stop taking Jardiance permanently. -Continue other home medications as usual. -Follow a renal diet. -Avoid NSAIDs (ibuprofen, Motrin, Aleve) and contrast dye. -Seek medical attention for shortness of breath, chest pain, confusion, or decreased urination. -Get a renal panel the day before your PCP visit. -Follow up with PCP in 1 week and nephrology as needed. ----- Plan discussed with attending physician Dr. Perry Julien MD PGY-1 Internal Medicine Status at Discharge Cognitive/behavioral status at discharge: Stable Functional status at discharge: uses cane/walker Overall status at discharge: patient is progressing back to baseline Time Spent with Patient Time attestation: Total time spent providing and/or coordinating discharge services: Time spent: Greater than 30 minutes Exam Vital Signs Temp Pulse Resp BP Pulse Ox O2 Del Method O2 Flow Rate 97.6 F 76 14 132/81 H 93 L Nasal Cannula 4 12/13/24 08:00 12/13/24 08:00 12/13/24 08:00 12/13/24 08:00 12/13/24 08:00 12/13/24 08:00 12/13/24 08:00 Narrative Exam General: Alert, oriented ?3, in no distress Heart: Irregularly irregular, no murmurs or rubs Lungs: Clear to auscultation bilaterally Abdomen: Soft, non-tender, normal bowel sounds Extremities: No edema Neuro: Grossly intact Skin: Warm, dry, intact Discharge Plan Plan Patient Disposition: HOME (Self Care) Patient condition on transfer: Stable Care Plan Goals: -Maintain medication adherence and follow new dosing schedule -Take Lasix every other day (not daily) -Avoid nephrotoxic agents (NSAIDs, contrast, or SHAYY/ARB) -Maintain cardiac/renal diet -Monitor for symptoms: shortness of breath, swelling, chest pain, confusion, or decreased urine output - return to ED if present -Repeat renal panel before PCP appointment to assess kidney recovery -Look at discharge activity instructions for more detailed instructions Prescriptions/Referrals Prescriptions/Med Rec: Continued calcitriol 0.25 mcg capsule 0.25 mcg PO QDAY Patient Comments: TAKE 1 CAPSULE BY MOUTH EVERY DAY allopurinol 100 mg tablet 100 mg PO QDAY Patient Comments: TAKE 1 TABLET BY MOUTH EVERY DAY FOR GOUT metoprolol succinate 50 mg tablet extended release 24 hr 50 mg PO DAILY Patient Comments: TAKE 1 TABLET BY MOUTH EVERY DAY levothyroxine 112 mcg tablet 112 mcg PO DAILY Patient Comments: TAKE 1 TABLET BY MOUTH EVERY DAY ferrous sulfate 325 mg (65 mg iron) tablet 325 mg PO DAILY Patient Comments: TAKE 1 TABLET BY MOUTH EVERY DAY B complex-vitamin C-folic acid [Nephro-Samira] See Rx Instructions PO DAILY Rx Instructions: orally daily; simvastatin 40 mg Tablet 40 mg PO QPM apixaban 2.5 mg tablet 2.5 mg PO BID 30 Days Qty: 60 3RF Changed furosemide 40 mg tablet 40 mg PO Q OTHER DAY 30 Days Qty: 15 0RF Patient Comments: TAKE 1 TABLET BY MOUTH EVERY DAY Discontinued Jardiance 25 mg tablet 25 mg PO QDAY Patient Comments: TAKE 1 TABLET BY MOUTH EVERY DAY IN THE MORNING Referrals: iRa Amador MD [Primary Care Provider, Nephrology] Patient/Caregiver Discharge Instructions Other Discharge Activity Instructions:: Continue: ?Metoprolol succinate 50 mg PO daily ?Apixaban (Eliquis) 2.5 mg PO twice daily ?Allopurinol 100 mg PO daily (uric acid elevated) ?Levothyroxine 112 mcg PO daily ?Simvastatin 40 mg PO nightly ?Calcitriol 0.25 mcg PO daily ?Nephro-Samira 0.8 mg PO daily Adjust: -Furosemide (Lasix) 40 mg PO every other day instead of daily Discontinue: ?Jardiance (empagliflozin) ? stop permanently Follow-Up Appointments ?Primary Care Physician: Within 1 week ?Obtain a renal panel the day before the appointment ?Cardiology: Routine follow-up for CHF and atrial fibrillation Education Materials: Acute Kidney Failure Dc, CKD Dc Print Language: Kinyarwanda Stand Alone Forms: [employer] Award Info., Patient Portal Info Letter Discharge Order Discharge Orders: Discharge (Routine); Ordered 12/13/24 Ordered By: Dakotah Julien Quality Discharge Quality Measures VTE prophylaxis Attestestation MD Attestation Patient seen and examined with resident physician Dr. Adams. Note reviewed, agree with findings and recommendations. Admitted with MICHAEL. There is improvement in the creatinine-dialysis held. Patient will be discharged. She will be following up with me in 1 week in my office continue diuretics every other day patient and family agreed.
[2024-12-13 12:00] VITALS: BP 149/76; PULSE 63; PULSE 69; RESP 20; TEMP 36.1; O2SAT 100
[2024-12-13 13:30] VITALS: BP 157/79; PULSE 73; RESP 18; TEMP 36.2; O2SAT 100
== END 2024-12-13 13:35 | disposition home or self-care (01) ==
PROVIDERS: Admitting Provider Internal Medicine; PCP Internal Medicine; Visit Provider Internal Medicine
DX: N17.9 Acute kidney failure, unspecified (principal); I13.0 Hypertensive heart and chronic kidney disease with heart failure and stage 1 through stage 4 chronic kidney disease, or unspecified chronic kidney disease; N18.4 Chronic kidney disease, stage 4 (severe); I50.9 Heart failure, unspecified; E78.5 Hyperlipidemia, unspecified; E03.9 Hypothyroidism, unspecified; Z79.01 Long term (current) use of anticoagulants; I48.91 Unspecified atrial fibrillation; M10.9 Gout, unspecified; Z99.3 Dependence on wheelchair; D63.1 Anemia in chronic kidney disease
CPT/HCPCS: 36415; 71045; 80053; 80069; 80074; 83540; 83550; 83735; 83880; 84100; 84550; 85025; 85610; 85730; 86580; 93005; 96372; G0378; J1644

== ENCOUNTER → 2024-12-18 | Outpatient (CLI) | payer OTHER, SELFPAY ==
[2024-12-18 13:33] LABS: Albumin, Serum 4.5 gm/dL (3.4-4.8); Anion Gap 12 (7-16); BUN/Creatinine Ratio 18 Ratio (12-20); Blood Urea Nitrogen 59 mg/dL (9-23); Calcium 9.9 mg/dL (8.3-10.6); Calcium (Corrected) 9.9 mg/dL (8.5-10.1); Carbon Dioxide 26.9 mMol/L (20.0-31.0); Chloride 105 mMol/L (98-107); Creatinine (Component) 3.2 mg/dL (0.6-1.3); Glucose 97 mg/dL (74-106); Osmolality,Calculated 303 (275-295); Phosphorous 4.6 mg/dL (2.4-5.1); Potassium 4.3 mMol/L (3.4-5.1); Sodium 144 mMol/L (136-145); eGFR 14 See Note
== END | disposition home or self-care (01) ==
LOC: COPL 12:32
PROVIDERS: PCP Internal Medicine; Referring Provider Internal Medicine; Visit Provider Internal Medicine
DX: N18.9 Chronic kidney disease, unspecified (principal)
CPT/HCPCS: 36415; 80069

== ENCOUNTER 2025-01-11 06:57 | Outpatient (CLI) | payer OTHER, SELFPAY ==
[2025-01-09 15:33] VITALS: BMI 25.4
[2025-01-10 08:59] LABS: Basophils # (Auto) 0.1 Thou/mm3 (0.0-0.2); Basophils % (Auto) 1 % (0-2.5); Eosinophils # (Auto) 2.7 Thou/mm3 (0.0-0.5); Eosinophils % (Auto) 23 % (0-10); Hematocrit 28.1 % (36.0-46.0); Hemoglobin 9.0 g/dL (12.0-16.0); Immature Granulocytes Auto 0.04 Thou/mm3 (0.00-0.00); Lymphocytes # (Auto) 2.4 Thou/mm3 (1.0-4.8); Lymphocytes % (Auto) 20 % (10-50); Mean Corpuscular HGB Conc 32.0 g/dl (31.0-37.0); Mean Corpuscular Hemoglobin 32.4 pg (25.0-35.0); Mean Corpuscular Volume 101 fL (80-100); Monocytes # (Auto) 0.8 Thou/mm3 (0.0-0.8); Monocytes % (Auto) 7 % (0-12); Neutrophils # (Auto) 5.8 Thou/mm3 (1.8-7.7); Neutrophils % (Auto) 50 % (37-80); Nucleated Red Blood Cell # 0.00 Thou/mm3 (0.00-0.00); Nucleated Red Blood Cell % 0 /100 WBC (0); Platelet Count 214 Thou/mm3 (140-440); RDW Standard Deviation 57.7 fL (36.4-46.3); Red Blood Count 2.78 Miln/mm3 (4.00-5.20); White Blood Count 11.7 Thou/mm3 (3.6-11.0)
[2025-01-10 09:00] LABS: INR 1.0 (0.9-1.3); Partial Thromboplastin Time 33.9 Seconds (22.0-36.0); Prothrombin Time 11.0 Seconds (9.0-12.2)
[2025-01-10 09:03] LABS: Blood Urea Nitrogen 40 mg/dL (9-23); Creatinine (Component) 2.4 mg/dL (0.6-1.3); Estimated Creatinine Clearance 13.8 mL/min (>60); eGFR 19 See Note
[2025-01-10 16:29] LABS: Path Review Blood Smear Sent to Pathologist
[2025-01-11] VITALS (15 sets, daily range): BP systolic 113–179; BP diastolic 49–96; PULSE 57–79; RESP 8–20; TEMP 36.6–37.1; O2SAT 95–100
--- NOTE | 2025-01-11 08:00 | XR_ITS ---
Fluoroscopic and ultrasound-guided right internal jugular vein tunneled dual lumen dialysis catheter placement. Date: 01/11/2025, 8:16 a.m. Indication: Renal failure Fluoroscopy time: 3.7 minutes Dose: 28.5 mGy Technique: After a discussion of risks and benefits informed consent was obtained. Patient was brought to the angiography suite and placed supine on the exam table. Preliminary ultrasound evaluation demonstrated the right internal jugular vein to be patent. This was targeted for catheter placement. The skin overlying the right IJ was cleaned and draped in normal sterile surgical fashion.20 cc's of 1% lidocaine was used for local anesthesia. Using ultrasound guidance access to the right internal jugular vein was obtained with a micropuncture needle. An 0.018 wire was advanced through the needle into the SVC and the needle was withdrawn. 5 Polish sheath was placed over the wire, the wire was removed and the sheath was capped. 5 cm subcutaneous tunnel was created from the anterior lateral right chest wall to the right IJ access site. 23 cm dual-lumen 15 Polish dialysis catheter was attached to the tunneling device and pulled through the tunnel exiting at the right IJ access site. A 0.035 wire was advanced through the sheath into the IVC. The tract was serially dilated and a 15 Polish peel-away sheath was placed. Catheter tips were advanced through the sheath and the sheath removed. Distal catheter tips were positioned in the distal SVC. Both ports flushed and aspirated easily and were filled with an appropriate volume of 1,000:1 heparinized saline. Catheter was secured to the skin with a 2-0 silk suture. Right IJ access site was closed with a 2-0 silk suture. Catheter was covered with a sterile dressing. There were no immediate complications. Impression: Successful 23 cm right IJ tunneled dialysis catheter placement as above. Catheter is ready for use.
--- NOTE | 2025-01-11 08:00 | PC.NURSE ---
notified md leigh of patient last dose of eliquis taken on 01/09. md leigh states is ok to proceed with procedure.
[2025-01-11] MEDS: ceFAZolin/D5W 1 GM IVPB 1 GM/50 ML BAG IV (08:37)
[2025-01-11] MEDS: HEPARIN SOD LOCK SYR 100 UNIT/ML 500 UNIT IV (09:06)
[2025-01-11] MEDS: MIDAZOLAM INJ 1 MG/ML VIAL 2 ML IVP (09:07)
[2025-01-11] MEDS: fentaNYL CIT INJ 50 mCg/ML AMP 2ML 100 MCG IV (09:08)
[2025-01-11] MEDS: LIDOCAINE INJ PF 1% 30 ML VIAL EPID (09:08)
[2025-01-11] MEDS: HEPARIN SOD INJ 1000 UNIT/ML VIAL 3500 UNIT INDWELLCAT (09:30)
[2025-01-11] MEDS: ONDANSETRON INJ 2 MG/ML INJ 2 ML 4 MG IVP (09:51)
== END 2025-01-11 11:20 | disposition home or self-care (01) ==
PROVIDERS: PCP Internal Medicine; Referring Provider Internal Medicine; Visit Provider Radiology Diagnostic Radiology
DX: N17.9 Acute kidney failure, unspecified (principal)
CPT/HCPCS: 36571; 36415; 76937; 77001; 82565; 84520; 85025; 85610; 85730; A4649; C1750; C1894; J0689; J1642; J1643; J2250; J2405; J3010; J3490; J7050